=== PATIENT | male | born 1950 | race Caucasian/White ===

== ENCOUNTER → 2020-09-05 13:49 | Outpatient (BNVA) | payer MEDICARE, MEDICAID, SELFPAY | PROVIDERS: PCP Nurse Practitioner Family; Visit Provider Surgery | DX: K43.9 Ventral hernia without obstruction or gangrene (principal); K42.9 Umbilical hernia without obstruction or gangrene | CPT/HCPCS: 99202 ==

== ENCOUNTER 2020-09-25 06:00 | Day surgery (SDC) | payer MEDICARE, MEDICAID, SELFPAY ==
[2020-09-19 10:59] VITALS: BMI 39.3
--- NOTE | 2020-09-23 14:24 | HO.ANESPROP2 ---
HPI - Anesthesia Eval Consult details Narrative: 70yo M for Hernia Repair Umbilical and Ventral Hernia with mesh PMFSH Active Problems Active Problems: All Active Problems (Updated 09/19/20 @ 10:56 by Mary Jo Carrasco) Dyslipidemia (Acute) Umbilical hernia (Acute) Cyst (Acute) Ventral hernia (Acute) Hypertension (Acute) Past Medical History Medical History Elevated cholesterol Hypertension Lumbar herniated disc Family History Family History Father No problems noted. Mother No problems noted. Surgical History Surgical History H/O colonoscopy H/O left knee surgery H/O prostatectomy History of surgery Hx of cystoscopy Hx of hernia repair Social History Social History Alcohol intake: current Alcohol intake frequency: does not drink Patient Tobacco Use Status: Tobacco use Unknown Meds Allergies Allergy/AdvReac Type Severity Reaction Status Date / Time tamsulosin [Flomax] Allergy Intermediate Irritated Verified 09/25/20 06:24 throat/sinuses oxycodone [From PERCOCET] Allergy Mild ITCHY Verified 09/25/20 06:24 aspirin [ASA] AdvReac Intermediate GI UPSET, Verified 09/25/20 06:24 upset stomach pollen extracts [POLLEN] AdvReac Intermediate SINUS Verified 09/25/20 06:24 PROBLEMS Exam Exam Date and Time: September 23, 2020 1424 Height,Weight and Vital Signs: Height 5 ft 11 in Weight 128 kg Assessment and Plan Assessment Anesthesia Assessment: Chart Reviewed
[2020-09-25] VITALS (7 sets, daily range): BP systolic 132–150; BP diastolic 74–93; PULSE 58–75; RESP 16–18; TEMP 36.1–36.4; O2SAT 94–97
[2020-09-25] MEDS: Lactated Ringers 1,000 ML 100 ML IVCONT (06:35)
--- NOTE | 2020-09-25 07:06 | MHC.SHP ---
Pre-Procedural Eval Section A The patient is an INPATIENT: No Changes since office visit: Yes Patient answered all questions; No Cold of Flu in the past 2 weeks, No New Medical Problems and No Changes in Medication The History & Physical has been completed within 30 days and I have reviewed it.: Yes Section B Chief Complaint: ventral and umbilical hernia without obstruction Allergies: Allergies Allergy/AdvReac Type Severity Reaction Status Date / Time tamsulosin [Flomax] Allergy Intermediate Irritated Verified 09/25/20 06:24 throat/sinuses oxycodone [From PERCOCET] Allergy Mild ITCHY Verified 09/25/20 06:24 aspirin [ASA] AdvReac Intermediate GI UPSET, Verified 09/25/20 06:24 upset stomach pollen extracts [POLLEN] AdvReac Intermediate SINUS Verified 09/25/20 06:24 PROBLEMS Plan Diagnosis/Plan: Unchanged I have reviewed the history and physical and performed a pertinent physical examination on my patient. No changes have occurred unless specified.
--- NOTE | 2020-09-25 07:09 | HO.ANESPROP2 ---
[facility] Active Problems Active Problems: All Active Problems (Updated 09/19/20 @ 10:56 by Mary Jo Carrasco) Dyslipidemia (Acute) Umbilical hernia (Acute) Cyst (Acute) Ventral hernia (Acute) Hypertension (Acute) Past Medical History Medical History Elevated cholesterol Hypertension Lumbar herniated disc Family History Family History Father No problems noted. Mother No problems noted. Surgical History Surgical History H/O colonoscopy H/O left knee surgery H/O prostatectomy History of surgery Hx of cystoscopy Hx of hernia repair Social History Social History Alcohol intake: current Alcohol intake frequency: does not drink Patient Tobacco Use Status: Tobacco use Unknown Advance Directives Information Provided: No Meds Allergies Allergy/AdvReac Type Severity Reaction Status Date / Time tamsulosin [Flomax] Allergy Intermediate Irritated Verified 09/25/20 06:24 throat/sinuses oxycodone [From PERCOCET] Allergy Mild ITCHY Verified 09/25/20 06:24 aspirin [ASA] AdvReac Intermediate GI UPSET, Verified 09/25/20 06:24 upset stomach pollen extracts [POLLEN] AdvReac Intermediate SINUS Verified 09/25/20 06:24 PROBLEMS Active Medications: Current Medications Generic Name Dose Route Start Last Admin Trade Name Freq PRN Reason Stop Dose Admin Lactated Ringer's 1,000 mls @ 100 mls/hr 09/25/20 06:15 09/25/20 06:35 Lr IVCONT 100 mls/hr .Q10H FIOR Administration Exam Exam Date and Time: September 25, 2020 0709 Height,Weight and Vital Signs: Height 5 ft 11 in Weight 128 kg Last Vital Signs Temp 97.6 F 09/25/20 06:11 Pulse 69 09/25/20 06:11 Resp 16 09/25/20 06:11 BP 144/89 H 09/25/20 06:11 Pulse Ox 97 09/25/20 06:11 Airway Mallampati Class: II TM Dist: <=3cm Neck ROM: Full Denture: Upper Assessment and Plan Assessment Anesthesia Assessment: Anesthesia Plan Discussed and Chart Reviewed Final Anesthetic Review NPO: Yes ASA Class: III Final Preanesthetic Review: No Changes in Pt Med Stat, Meds/Allgs Chart Reviewed, Consent Obtained/Reviewed and Anes Risks/Benef Reviewed Patient Risk: Intermediate Procedure Risk: Intermediate Anesthetic Plan Anesthetic Plan: GA and Agree w/ Assess. and Plan Disposition: Standard PACU
--- NOTE | 2020-09-25 08:35 | W.PM.OPN ---
Operative Note Operative Note Date of Service: 09/25/20 Narrative: Preoperative diagnosis:Umbilical and ventral hernia Postoperative diagnosis:same Procedure:Repair of umbilical and ventral hernia with mesh Surgeon: Gary Cordova MD [employer]: no physician Anesthesia:General LMA Indications for procedure:70-year-old male patient presenting with a lump near the umbilicus and slightly above the umbilicus which increases in size with lifting and straining. On examination patient is found to have both an umbilical and ventral hernia. Both are reducible with light pressure. Operative findings: Ventral and umbilical hernia Specimen: none Estimated blood loss: 5 mL Complications: none Procedure details: patient was brought to the OR placed in a supine position. After administering general anesthesia the patient's abdomen was prepped with ChloraPrep and draped in a sterile fashion. A surgical time-out was called the consent confirmed. Patient received preoperative antibiotics and Venodyne boots were in place. Local anesthesia consisting of 0.25% Sensorcaine with epinephrine was infiltrated in the midline from just below the umbilicus to approximately 10 cm above the umbilicus. A midline incision was then created carried out through subcutaneous tissue. The umbilical and ventral hernia were identified. Electrocautery was then used to dissect the hernia sac down to the fascial edges. Fascial edges were then further defined using electrocautery. Hernia contents contained preperitoneal fat. This was reduced into the preperitoneal space. A preperitoneal space was then widened using blunt dissection and an open Ray-Donovan sponge. An 8 cm round Ventralex mesh was then obtained. This was placed in the preperitoneal space and secured to the fascia using 1. Tycron sutures. Fascia was then closed over the mesh using Tycron sutures in [id number] fashion. Wounds were then irrigated with saline solution and suctioned dry. Additional local was infiltrated into the muscle and subcutaneous tissue. Subcutaneous tissue and dermis were then reapproximated using interrupted 3-0 Polysorb sutures. Skin was closed using a running subcuticular 4 0 Polysorb suture. Steri-Strips 2 x 2 gauze and Tegaderm were then applied. The patient tolerated the procedure well. Sponge, instrument, needle counts reported as correct. The patient was transferred to PACU in stable condition.
[2020-09-25] MEDS: HYDROmorphone HCl 2 MG TABLET PO (09:20)
== END 2020-09-25 11:00 | disposition home or self-care (01) ==
PROVIDERS: PCP Nurse Practitioner Family; Visit Provider Surgery
PROC: (CPT 49560; principal; 2020-09-25 07:30)
DX: K42.9 Umbilical hernia without obstruction or gangrene (principal); K43.9 Ventral hernia without obstruction or gangrene; I10 Essential (primary) hypertension; Z79.899 Other long term (current) drug therapy; Z88.8 Allergy status to other drugs, medicaments and biological substances
CPT/HCPCS: 49560; 49585; 49568; C1781; J0690; J1100; J1885; J2405; J3010

== ENCOUNTER 2020-10-03 09:41 | Outpatient (REF) | payer MEDICARE, OTHER, SELFPAY ==
[2020-10-03 11:29] LABS: PSA,Total (Free>4and<10) 0.56 ng/mL (0.00-4.00)
== END 2020-10-03 09:42 | disposition home or self-care (01) ==
LOC: HO.LAB 09:41
PROVIDERS: Absent Provider Urology; PCP Nurse Practitioner Family; Visit Provider Surgery
DX: Z12.5 Encounter for screening for malignant neoplasm of prostate (principal); N40.1 Benign prostatic hyperplasia with lower urinary tract symptoms; K42.9 Umbilical hernia without obstruction or gangrene; K43.9 Ventral hernia without obstruction or gangrene
CPT/HCPCS: 36415; 84153; 99212

== ENCOUNTER 2020-10-04 09:36 | Outpatient (REF) | payer MEDICARE, MEDICAID, SELFPAY ==
[2020-10-04 12:08] LABS: TSH reflex Free T4 0.46 uIU/mL (0.32-4.0)
[2020-10-04 12:15] LABS: Alanine Aminotransferase 39 U/L (0-40); Albumin Level 4.4 g/dL (3.5-5.0); Alkaline Phosphatase 74 U/L (39-117); Anion Gap 12 (12-20); Aspartate Amino Transferase 28 U/L (5-37); Blood Urea Nitrogen 16 mg/dL (9-16); Calcium 9.5 mg/dL (8.4-10.2); Carbon Dioxide 28 mmol/L (22-29); Chloride 105 mmol/L (96-108); Cholesterol 172 mg/dL; Estimated Glomerular Filt Rate > 60; Glucose Fasting 95 mg/dL (60-99); HDL Cholesterol 31 mg/dL; LDL Cholesterol Calculated 111 mg/dl; Potassium 4.4 mmol/L (3.3-5.1); Sodium 141 mmol/L (135-145); Total Protein 7.1 g/dL (6.5-8.0); Triglycerides 152 mg/dL
== END 2020-10-04 09:37 | disposition home or self-care (01) ==
LOC: HO.HMGCLDS 09:36
PROVIDERS: PCP Nurse Practitioner Family; Visit Provider Nurse Practitioner Family
DX: E78.5 Hyperlipidemia, unspecified (principal); I10 Essential (primary) hypertension
CPT/HCPCS: 36415; 80053; 80061; 84443

== ENCOUNTER → 2020-11-05 12:58 | Outpatient (BNVA) | payer MEDICARE, MEDICAID, SELFPAY | PROVIDERS: PCP Nurse Practitioner Family; Referring Provider Nurse Practitioner Family; Visit Provider Surgery | DX: Z48.815 Encounter for surgical aftercare following surgery on the digestive system (principal); Z87.19 Personal history of other diseases of the digestive system | CPT/HCPCS: 99212 ==

== ENCOUNTER → 2020-12-31 13:26 | Outpatient (BNVA) | payer MEDICARE, MEDICAID, SELFPAY | PROVIDERS: PCP Nurse Practitioner Family; Visit Provider Urology | DX: N40.1 Benign prostatic hyperplasia with lower urinary tract symptoms (principal) | CPT/HCPCS: Q3014 ==

== ENCOUNTER → 2022-01-01 11:11 | Outpatient (BNVA) | payer MEDICARE, MEDICAID, SELFPAY | PROVIDERS: PCP Nurse Practitioner Family; Visit Provider Surgery Vascular Surgery | DX: I83.11 Varicose veins of right lower extremity with inflammation (principal) | CPT/HCPCS: 99202 ==

== ENCOUNTER 2022-01-02 14:44 | Outpatient (REF) | payer MEDICARE, MEDICAID, SELFPAY ==
[2022-01-02 17:11] LABS: Urine Cytology See Pathology rpt
== END 2022-01-02 14:45 | disposition home or self-care (01) ==
LOC: HO.LAB 14:44
PROVIDERS: PCP Nurse Practitioner Family; Visit Provider Urology
DX: R31.29 Other microscopic hematuria (principal); N40.1 Benign prostatic hyperplasia with lower urinary tract symptoms
CPT/HCPCS: 51798; 88112; 99212

== ENCOUNTER 2022-01-14 08:33 | Outpatient (REF) | payer MEDICARE, MEDICAID, SELFPAY ==
--- NOTE | ~2022-01-14 | US_ITS ---
EXAMINATION: US LOWER EXTREMITY VENOUS (REFLUX EXAM), BILATERAL CLINICAL INDICATION: Chronic venous insufficiency with recurrent varicose veins. History of right lower extremity radiofrequency ablation and left lower extremity Venaseal ablation COMPARISON: 10/04/2017 TECHNIQUE: Color flow triplex imaging and compression Doppler was performed to evaluate both the deep and the superficial systems bilaterally. To evaluate the superficial system, the examination was performed in the upright position. Color-flow Doppler ultrasound and compression ultrasound were utilized. In addition, maneuvers were utilized to demonstrate reflux. FINDINGS: 1. DEEP VENOUS ULTRASOUND OF THE RIGHT LOWER EXTREMITY: Common Femoral Vein: Compressible, normal respiratory variation and augmented flow. Femoral Vein: Compressible, normal color flow and augmentation. Popliteal Vein: Compressible, normal augmentation. Deep Reflux: There is mild reflux in the common femoral vein measuring 1344 ms There is no evidence of a Duran's cyst. 2. SUPERFICIAL ULTRASOUND WITH DOPPLER OF RIGHT LOWER EXTREMITY: GREAT SAPHENOUS VEIN: Saphenofemoral Junction: 1.1 cm; Reflux: 2208 ms Proximal Thigh: 0.5 cm; Reflux: 384 ms Mid Thigh: 0.2 cm; Reflux: 456 ms, partially occluded Above Knee: 0.1 cm; Reflux: 1036 ms, partially occluded At Knee: Not visualized Below Knee: 0.6 cm; Reflux: 3496 ms Mid Calf: 0.5 cm; Reflux: 1084 ms Ankle: 0.4 cm; Reflux: 800 ms DUPLICATED MEDIAL GREAT SAPHENOUS VEIN: Diameter: 1.0 cm Reflux: 1260 ms DUPLICATED LATERAL GREAT SAPHENOUS VEIN: Diameter: None Imaged Reflux: NA SMALL SAPHENOUS VEIN: Proximal: 0.2 cm; Reflux: 0 ms Distal: 0.2 cm; Reflux: 732 ms VEIN OF GIACOMINI: None Imaged. PERFORATORS: Location: Right calf Size: 0.3 to 0.4 cm Reflux: 332 ms VARICOSITIES: Location: Groin and throughout the thigh arising from of the medial duplicated great saphenous vein. Distal posterior calf arising from the small saphenous vein Size: Ranging from 0.3 to 1.0 cm Reflux: Ranging from 760 ms to 3364 ms 3. DEEP VENOUS ULTRASOUND OF THE LEFT LOWER EXTREMITY: Common Femoral Vein: Compressible, normal respiratory variation and augmented flow. Femoral Vein: Compressible, normal color flow and augmentation. Popliteal Vein: Compressible, normal augmentation. Deep Reflux: There is no evidence of reflux in the deep system in either the common femoral vein or the popliteal vein. There is no evidence of a Duran's cyst. 4. SUPERFICIAL ULTRASOUND WITH DOPPLER OF LEFT LOWER EXTREMITY: GREAT SAPHENOUS VEIN: Saphenofemoral Junction: 1.0 cm; Reflux: 0 ms Proximal Thigh: Not visualized Mid Thigh: Not visualized Above Knee: 0.2 cm; Reflux: 3412 ms, reconstituted from residual varicosities At Knee: Not visualized Below Knee: 0.5 cm; Reflux: 1456 ms Mid Calf: 0.5 cm; Reflux: 0 ms Ankle: 0.4 cm; Reflux: 560 ms DUPLICATED MEDIAL GREAT SAPHENOUS VEIN: Diameter: 0.4 cm Reflux: None DUPLICATED LATERAL GREAT SAPHENOUS VEIN: Diameter: 0.6 cm Reflux: None SMALL SAPHENOUS VEIN: Proximal: 0.3 cm; Reflux: 3480 ms ms Distal: 0.3 cm; Reflux: 0 ms VEIN OF GIACOMINI: Thigh extension is present PERFORATORS: Location: Left calf Size: 0.6 cm Reflux: None VARICOSITIES: Location: Proximal and mid thigh reconstituting the great saphenous vein in the distal thigh. Distal thigh and proximal calf reconstituting the great saphenous vein in the calf. Mid calf Size: Ranging from 0.4 to 0.7 cm Reflux: Ranging from 712 ms to 3344 ms US/US venous duplex LE BI IMPRESSION: Right: Prior ablation of the right great saphenous vein with some partial recanalization in the thigh. 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 The varicosities were subsequently reconstituting into the great saphenous vein at the level of the proximal calf. There is severe reflux in the reconstituted great saphenous vein, medial duplicated great saphenous vein and throughout the varicosities. There is also mild reflux in the right common femoral vein Left: Prior ablation of the left great saphenous vein within the thigh. There is a short segment area of reconstituted flow in the distal thigh due to residual or recurrent varicosities. Great saphenous vein in the calf is patent with moderate reflux. Multiple varicosities are seen in the thigh and extending into the calf with severe reflux as described above. There is severe reflux in the left small saphenous vein
== END 2022-01-14 08:34 | disposition home or self-care (01) ==
LOC: HO.US 08:33
PROVIDERS: Visit Provider Surgery Vascular Surgery
DX: I83.11 Varicose veins of right lower extremity with inflammation (principal)
CPT/HCPCS: 93970

== ENCOUNTER → 2022-01-21 09:48 | Outpatient (BNVA) | payer MEDICARE, MEDICAID, SELFPAY | PROVIDERS: PCP Nurse Practitioner Family; Visit Provider Surgery Vascular Surgery | DX: I83.11 Varicose veins of right lower extremity with inflammation (principal); I83.12 Varicose veins of left lower extremity with inflammation | CPT/HCPCS: 99212 ==

== ENCOUNTER → 2022-02-06 09:57 | Outpatient (BNVA) | payer MEDICARE, MEDICAID, SELFPAY | PROVIDERS: PCP Nurse Practitioner Family; Visit Provider Surgery Vascular Surgery | DX: I83.11 Varicose veins of right lower extremity with inflammation (principal) | CPT/HCPCS: 36482 ==

== ENCOUNTER 2022-02-09 13:29 | Outpatient (REF) | payer MEDICARE, MEDICAID, SELFPAY ==
--- NOTE | ~2022-02-09 | US_ITS ---
EXAMINATION: TRIPLEX SCANNING OF RIGHT LOWER EXTREMITY; SUPERFICIAL ULTRASOUND WITH DOPPLER OF RIGHT LOWER EXTREMITY CLINICAL INFORMATION: Status post Venaseal of the right great saphenous vein COMPARISON: Ultrasound from 01/14/2022. TECHNIQUE: Color flow triplex imaging and compression Doppler were performed as well as superficial ultrasound with Doppler. FINDINGS: RIGHT LOWER EXTREMITY DEEP VENOUS SYSTEM: Respiratory variation, normal compression and augmented flow are noted throughout the lower extremity. The visualized common femoral vein, femoral vein, profunda femoral vein, popliteal vein and the calf veins show no evidence of deep venous thrombosis. There is no evidence of Duran's cyst. SUPERFICIAL VENOUS SYSTEM: The great saphenous vein is only partially occluded. Thrombus/glue with partial compressibility is seen in the proximal great saphenous vein beginning at 2.9 cm from the saphenofemoral junction. Patent segments of the great saphenous vein are seen within the mid and distal thigh. The great saphenous vein in the proximal and mid calf is occluded. There is partial occlusion of the great saphenous vein in the distal calf. There is no extension of thrombus into the deep system. US/US venous duplex LE RT IMPRESSION: 1. No evidence of DVT. 2. Partial occlusion of the right great saphenous vein as described above.
== END 2022-02-09 13:30 | disposition home or self-care (01) ==
LOC: HO.US 13:29
PROVIDERS: Visit Provider Surgery Vascular Surgery
DX: M79.604 Pain in right leg (principal)
CPT/HCPCS: 93971

== ENCOUNTER → 2022-02-19 15:09 | Outpatient (BNVA) | payer MEDICARE, MEDICAID, SELFPAY | PROVIDERS: PCP Nurse Practitioner Family; Visit Provider Surgery Vascular Surgery | DX: I83.11 Varicose veins of right lower extremity with inflammation (principal) | CPT/HCPCS: 99212 ==

== ENCOUNTER → 2022-03-13 09:20 | Outpatient (BNVA) | payer MEDICARE, MEDICAID, SELFPAY | PROVIDERS: PCP Nurse Practitioner Family; Visit Provider Surgery Vascular Surgery | DX: I83.11 Varicose veins of right lower extremity with inflammation (principal) | CPT/HCPCS: 36475 ==

== ENCOUNTER 2022-03-16 15:12 | Outpatient (REF) | payer MEDICARE, MEDICAID, SELFPAY ==
--- NOTE | ~2022-03-16 | US_ITS ---
EXAMINATION: TRIPLEX SCANNING OF RIGHT LOWER EXTREMITY; SUPERFICIAL ULTRASOUND WITH DOPPLER OF RIGHT LOWER EXTREMITY CLINICAL INFORMATION: Status post RF ablation of the right small saphenous vein. Originally performed on 03/13/2022. COMPARISON: Ultrasound from 02/09/2022. TECHNIQUE: Color flow triplex imaging and compression Doppler were performed as well as superficial ultrasound with Doppler. FINDINGS: TRIPLEX SCANNING OF RIGHT LOWER EXTREMITY: Respiratory variation, normal compression and augmented flow are noted throughout the lower extremity. The visualized common femoral vein, femoral vein, profunda femoral vein, popliteal vein and the calf veins show no evidence of deep venous thrombosis. There is no evidence of Duran's cyst. SUPERFICIAL ULTRASOUND WITH DOPPLER OF RIGHT LOWER EXTREMITY: The right small saphenous vein is occluded from the access site to 2.6 cm before the saphenopopliteal junction. There is no extension of thrombus into the deep system. US/US venous duplex LE RT IMPRESSION: 1. Normal triplex scan of the right without evidence of deep venous thrombosis. 2. Excellent appearance status post ablation of the right small saphenous vein.
== END 2022-03-16 15:13 | disposition home or self-care (01) ==
LOC: HO.US 15:12
PROVIDERS: Visit Provider Surgery Vascular Surgery
DX: M79.604 Pain in right leg (principal)
CPT/HCPCS: 93971

== ENCOUNTER → 2022-03-31 14:39 | Outpatient (BNVA) | payer MEDICARE, MEDICAID, SELFPAY | PROVIDERS: PCP Nurse Practitioner Family; Visit Provider Surgery Vascular Surgery | DX: I83.11 Varicose veins of right lower extremity with inflammation (principal); I83.12 Varicose veins of left lower extremity with inflammation | CPT/HCPCS: 99212 ==

== ENCOUNTER 2022-04-13 06:01 | Day surgery (SDC) | payer MEDICARE, MEDICAID, SELFPAY ==
[2022-04-09 09:27] VITALS: BMI 37.6
[2022-04-13] VITALS (10 sets, daily range): BP systolic 131–160; BP diastolic 83–102; PULSE 70–86; RESP 12–18; TEMP 36.2–36.6; O2SAT 94–98
--- NOTE | 2022-04-13 07:21 | HO.ANESPROP2 ---
HPI - Anesthesia Eval Consult details Narrative: 71 yo male patient for Right lower extremity microphlebectomy PMFSH Active Problems Active Problems: All Active Problems (Updated 04/13/22 @ 07:20 by Jil Jang MD) Dyslipidemia (Acute) Umbilical hernia (Acute) Cyst (Acute) Ventral hernia (Acute) Lower urinary tract symptoms due to benign prostatic hyperplasia (Acute) Varicose veins of right lower extremity with inflammation (Acute) Varicose veins of left lower extremity with inflammation (Acute) Hypertension (Acute) Increased BMI Past Medical History Medical History (Updated 04/13/22 @ 08:30 by Jil Jang MD) Degenerative disc disease, lumbar Elevated cholesterol Hypertension Lumbar herniated disc Sleep walking Family History Family History Father No problems noted. Mother No problems noted. Family history of problems with anesthesia: No Surgical History Surgical History H/O colonoscopy H/O left knee surgery H/O prostatectomy History of surgery Hx of cystoscopy Hx of hernia repair Hx of removal of cyst Hx of umbilical hernia repair History of Problems with Anesthesia: No Social History Social History Alcohol intake: current Alcohol intake frequency: former alcohol drinker Patient Tobacco Use Status: Never used Tobacco Use of substances other than those prescribed or required for medical reasons: No Are you DNR?: No Advance Directives: No Advance Directives Information Provided: Yes Meds Allergies Allergy/AdvReac Type Severity Reaction Status Date / Time tamsulosin [Flomax] Allergy Intermediate Irritated Verified 04/13/22 06:20 throat/sinuses oxycodone [From PERCOCET] Allergy Mild ITCHY Verified 04/13/22 06:20 aspirin [ASA] AdvReac Intermediate GI UPSET, Verified 04/13/22 06:20 upset stomach pollen extracts [POLLEN] AdvReac Intermediate SINUS Verified 04/13/22 06:20 PROBLEMS fluticasone [From Flonase] AdvReac Unknown Verified 04/13/22 06:20 Home Medications Medication Instructions Recorded Confirmed Last Taken Type cetirizine 10 mg tablet (Allergy 10 mg PO DAILY PRN Allergy Symptoms 01/20/21 04/13/22 Unknown History Relief (cetirizine)) diphenhydramine 25 1 tab PO BEDTIME PRN Insomnia 02/19/22 04/13/22 Unknown History mg-acetaminophen 500 mg tablet (Tylenol PM Extra Strength) Exam Exam Date and Time: April 13, 2022 0721 Height,Weight and Vital Signs: Height 5 ft 11 in Weight 122.47 kg Last Vital Signs Temp 97.7 F 04/13/22 06:28 Pulse 86 04/13/22 06:28 Resp 16 04/13/22 06:28 BP 160/102 H 04/13/22 06:28 Pulse Ox 98 04/13/22 06:28 O2 Del Method 04/13/22 06:28 Airway Mallampati Class: II TM Dist: >3cm Neck ROM: Full Loose/Missing/Broken Teeth: No (Denies loose, broken, missing teeth) Heart: RRR Lungs: CTAB Assessment and Plan Assessment Anesthesia Assessment: Anesthesia Plan Discussed and Chart Reviewed Final Anesthetic Review Family History of Problems with Anesthesia: No History of Problems with Anesthesia: No NPO: Yes ASA Class: II Final Preanesthetic Review: No Changes in Pt Med Stat, Meds/Allgs Chart Reviewed, Consent Obtained/Reviewed and Anes Risks/Benef Reviewed Patient Risk: Low Procedure Risk: Low Assessment/Block/Sedation in SS: Assess/Block/Sedation-SS Anesthetic Plan Anesthetic Plan: GA Disposition: Standard PACU
--- NOTE | 2022-04-13 07:42 | MHC.SHP ---
Pre-Procedural Eval Section A Date of Service: 04/13/22 The patient is an INPATIENT: No Changes since office visit: Yes Patient answered all questions The History & Physical has been completed within 30 days and I have reviewed it.: Yes Section B Chief Complaint: Varicose veins of left lower extremity Allergies: Allergies Allergy/AdvReac Type Severity Reaction Status Date / Time tamsulosin [Flomax] Allergy Intermediate Irritated Verified 04/13/22 06:20 throat/sinuses oxycodone [From PERCOCET] Allergy Mild ITCHY Verified 04/13/22 06:20 aspirin [ASA] AdvReac Intermediate GI UPSET, Verified 04/13/22 06:20 upset stomach pollen extracts [POLLEN] AdvReac Intermediate SINUS Verified 04/13/22 06:20 PROBLEMS fluticasone [From Flonase] AdvReac Unknown Verified 04/13/22 06:20 Plan I have reviewed the history and physical and performed a pertinent physical examination on my patient. No changes have occurred unless specified. Time Spent With Patient Time: Total time managing care of this patient today ____ minutes.
--- NOTE | 2022-04-13 09:03 | W.PM.OPN ---
Operative Note Operative Note Date of Service: 04/13/22 Narrative: Operative note by [facility] Preoperative diagnosis: Right leg varicose veins with inflammation Postoperative diagnosis: Same Procedure:1. Right leg microphlebectomy 2. Ligation of venous cluster Surgeon:Ty Fernández M.D. Molecular Genetic Pathologist: Taryn Anesthesia: General Specimens: 1 Drains: None Estimated blood loss: 100 mL Indications: Very pleasant 71-year-old gentleman with prior right lower extremity endovenous ablation is presents for microphlebectomy. He had large varicosities which were painful and uncomfortable for him. More so towards the medial thigh. He now presents for operative intervention. The patient has signed the informed consent after reviewing risks, complications, benefits, and alternatives previously discussed with the patient. The patient was given the opportunity to ask any additional questions or voice any concerns. All questions were answered to the patient's satisfaction. Procedure in detail: Varicose veins were marked in the standing position on the right leg and the patient was then placed in the supine position. The right lower extremity was prepared and draped to allow knee flexion in the sterile field. The patient had large superficial varicose veins with significant symptoms of pain. It was therefore determined to perform microphlebectomies of the clusters of varicose veins. The patient had bulging varicose veins which were previously marked in the standing position. A small stab incision was made longitudinally directly overlying the varicose vein in the calf and the varicose vein was grasped with a hemostat aided by a vein hook. It was then dissected as far proximally and distally as possible and avulsed. A total of 23 stab incisions were made and the procedure of stab phlebectomies was repeated 23 times. On the right medial thigh there was a venous cluster. We had to identify the base of this venous cluster and we E ligated the base with a 3-0 Polysorb suture residual varicosities were removed. Hemostasis was checked and stab incision sites were closed with steri-strips and sterile dressing was given with gauze and krilex wrap followed by an melecio bandage. There were no complications and blood loss was minimal. Post-Op instructions were given and a follow-up appointment was recommended. This note is constructed using voice recognition software. While every effort has been made to ensure accuracy, driver education road instructor errors may have been included. Thank you for allowing me to participate in the care of your patient. Yours sincerely, Ty Fernández MD, FACS, R.P.V.I.
== END 2022-04-13 11:21 ==
LOC: HO.SSS 06:01
PROVIDERS: PCP Nurse Practitioner Family; Visit Provider Surgery Vascular Surgery
PROC: (CPT 37766; principal; 2022-04-13 07:30)
DX: I83.11 Varicose veins of right lower extremity with inflammation (principal); E78.00 Pure hypercholesterolemia, unspecified; I10 Essential (primary) hypertension; Z88.8 Allergy status to other drugs, medicaments and biological substances
CPT/HCPCS: 37766; 37785; 88304; J0690; J2250; J2405; J2795; J3010

== ENCOUNTER → 2022-04-28 14:31 | Outpatient (BNVA) | payer MEDICARE, MEDICAID, SELFPAY | PROVIDERS: PCP Nurse Practitioner Family; Visit Provider Surgery Vascular Surgery | DX: I83.12 Varicose veins of left lower extremity with inflammation (principal); I83.11 Varicose veins of right lower extremity with inflammation; Z98.890 Other specified postprocedural states | CPT/HCPCS: 99212 ==

== ENCOUNTER → 2022-05-01 09:25 | Outpatient (BNVA) | payer MEDICARE, MEDICAID, SELFPAY | PROVIDERS: PCP Nurse Practitioner Family; Visit Provider Surgery Vascular Surgery | DX: I83.12 Varicose veins of left lower extremity with inflammation (principal) | CPT/HCPCS: 37765 ==

== ENCOUNTER → 2022-05-14 14:38 | Outpatient (BNVA) | payer MEDICARE, MEDICAID, SELFPAY | PROVIDERS: PCP Nurse Practitioner Family; Visit Provider Surgery Vascular Surgery | DX: I83.11 Varicose veins of right lower extremity with inflammation (principal); I83.12 Varicose veins of left lower extremity with inflammation | CPT/HCPCS: 99212 ==

== ENCOUNTER 2023-01-05 14:31 | Outpatient (AMB) | payer MEDICARE, MEDICAID, SELFPAY ==
--- NOTE | 2023-01-05 14:34 | MHC.OFFVIS ---
Intake Intake Visit Reasons: 1Y PVR(BPH) Intake Note: Patient is Present for Follow Up PVR Urology Medication: None Antibiotic Allergies: None Blood Thinners: None Pharmacy: [facility] PVR: 10 Allergies tamsulosin [Flomax] Allergy (Intermediate, Verified 01/05/23 14:35) Irritated throat/sinuses oxycodone [From PERCOCET] Allergy (Mild, Verified 01/05/23 14:35) ITCHY aspirin [ASA] Adverse Reaction (Intermediate, Verified 01/05/23 14:35) GI UPSET, upset stomach pollen extracts [POLLEN] Adverse Reaction (Intermediate, Verified 01/05/23 14:35) SINUS PROBLEMS fluticasone [From Flonase] Adverse Reaction (Verified 01/05/23 14:35) Unknown Medication List - Last Reconciled 01/05/23 by Carlos Gil MD atorvastatin 20 mg PO DAILY cetirizine (Allergy Relief (cetirizine)) 10 mg PO DAILY PRN diphenhydramine-acetaminophen 25-500 mg (Tylenol PM Extra Strength) 1 tab PO BEDTIME PRN lisinopril 5 mg PO DAILY HPI HPI Comments History of Present Illness Details Rory is a pleasant male. He is a patient of Dr. Pires. He is seen for the following urologic conditions - lower urinary tract symptoms - microscopic hematuria Microscopic hematuria on UA Persistent Upper tract +cystoscopy Lower urinary tract symptoms Underwent prostate procedure in office February 2017 Continued benefit PSA - 10/23 0.49, 10/23 0.56 PFSH Medical History Sleep walking Degenerative disc disease, lumbar Elevated cholesterol Lumbar herniated disc Hypertension Surgical History Hx of removal of cyst Hx of umbilical hernia repair Hx of cystoscopy History of surgery H/O prostatectomy H/O left knee surgery Hx of hernia repair H/O colonoscopy Family History Father No problems noted. Mother No problems noted. Social History Alcohol intake: current Alcohol intake frequency: former alcohol drinker Patient Tobacco Use Status: Never used Tobacco Review of Systems Const Denies chills and Denies fever(s) Card Reports no additional complaints and Denies syncope Resp Denies cough GI Denies abdominal pain and Denies heartburn Reports as per HPI and Denies change in libido Neuro Denies syncope Psych Denies change in libido Endo Denies change in libido Physical Exam Const General: cooperative, healthy appearing, comfortable and no acute distress Orientation/consciousness: patient oriented x3 HEENT Face and sinus: Yes normal facial exam Mouth: moist mucous membranes Neck Neck: Yes normal visual inspection, Yes full ROM and Yes trachea midline Chest Chest palpation & inspection: normal inspection of the chest Resp Effort & Inspection: normal respiratory effort, able to speak in complete sentences and no respiratory distress GI Inspection: Yes normal to inspection Back/Spine/Pelvis Cervical Spine: normal cervical lordosis Thoracic/Lumbar Spine: thoracic and lumbar spine normal to inspection Skin General skin exam: no rashes or lesions noted Neuro General: patient oriented x3, gait normal, tone normal and moves all extremities Extrem General: Yes normal to inspection and Yes capillary refill normal Office Procedures Post Void Residual Post Residual Void Post Void Residual (PVR): 10 [id number] Void Residual by ultrasound Results AMB Urinalysis, Automated UA Leukoctes 0 Dpiesh/uL Last Edit by Karlee Crawford [facility] on 01/05/23 14:55 UA Nitrite Negative Last Edit by Karlee Crawford [facility] on 01/05/23 14:55 UA Urobilinogen 0.2 mg/dL Last Edit by Karlee Crawford [facility] on 01/05/23 14:55 UA Protein 100 mg/dL Last Edit by Karlee Crawford [facility] on 01/05/23 14:55 UA pH 5.0 Last Edit by Karlee Crawford [facility] on 01/05/23 14:55 UA Blood 80 Moise/uL Last Edit by Karlee Crawford [facility] on 01/05/23 14:55 UA Specific [place] 1.025 Last Edit by Karlee Crawford [facility] on 01/05/23 14:55 UA Ketone Negative Last Edit by Karlee Crawford [facility] on 01/05/23 14:55 UA Bilirubin 0 mg/dL Last Edit by Karlee Crawford [facility] on 01/05/23 14:55 UA Glucose 0 mg/dL Last Edit by GLADIS Barrera on 01/05/23 14:55 Assessment & Plan Assessment & Plan (1) Microscopic hematuria: Code(s): R31.29 - Other microscopic hematuria (2) Lower urinary tract symptoms due to benign prostatic hyperplasia: Code(s): N40.1 - Benign prostatic hyperplasia with lower urinary tract symptoms Plan Complete microscopic hematuria evaluation Orders: Orders Urine Cytology Today R31.29 - Other microscopic hematuria US renal BI Today N20.0 - Calculus of kidney, R31.29 - Other microscopic hematuria AMB Post Void Residual by ultrasound Today N40.1 - Benign prostatic hyperplasia with lower urinary tract symptoms AMB Urinalysis Automated Today Z13.9 - Encounter for screening, unspecified Patient Instructions: Imaging studies, laboratory and physical exam results were discussed and reviewed in detail. No major barriers to patient understanding were identified. An opportunity to ask questions regarding the treatment plan was provided. All questions were answered. The patient expressed understanding and agreement with the above treatment plan. The patient is aware they should contact our office by phone for worsening of their current condition or the appearance of new urologic symptoms. Compliance is encouraged with any medications and followup testing that is ordered. It is a privilege to participate in the urologic care of your patient. If you have any questions or concerns regarding treatment for the above conditions, or other urologic issues, please do not hesitate to contact me. The office telephone contact is [phone]. This note is constructed using voice recognition software. While every effort has been made to ensure accuracy net trainer errors may have been included. Yours sincerely, Dr Carlos Gil MD, [facility] - Urology Providers of Expert, Compassionate Care for the Genitourinary System Coding Level of Care Code Est Pt Level 4 (39054) Diagnoses Microscopic hematuria R31.29 Lower urinary tract symptoms due to benign prostatic hyperplasia N40.1 CPT Codes Post Residual Void - PVR CPT Code: 90528-Vpjd Void Residual by ultrasound ([id number])
== END 2023-01-05 15:12 | disposition home or self-care (01) ==
PROVIDERS: PCP Nurse Practitioner Family; Visit Provider Urology
DX: R31.29 Other microscopic hematuria (principal); N40.1 Benign prostatic hyperplasia with lower urinary tract symptoms; Z13.9 Encounter for screening, unspecified
CPT/HCPCS: 99214

== ENCOUNTER 2023-01-05 14:31 | Outpatient (REF) | payer MEDICARE, SELFPAY ==
[2023-01-05 16:45] LABS: Urine Cytology See Pathology rpt
== END 2023-01-05 14:32 | disposition home or self-care (01) ==
LOC: HO.LAB 14:31
PROVIDERS: Visit Provider Urology
DX: R31.29 Other microscopic hematuria (principal); N40.1 Benign prostatic hyperplasia with lower urinary tract symptoms
CPT/HCPCS: 51798; 81003; 88112; 99212

== ENCOUNTER 2023-01-26 12:51 | Outpatient (REF) | payer MEDICARE, MEDICAID, SELFPAY ==
--- NOTE | ~2023-01-26 | US_ITS ---
EXAMINATION: US RETROPERITONEAL LIMITED (RENAL ONLY) CLINICAL INFORMATION: Calculus of kidney. COMPARISON: MRI abdomen 09/19/2013. Renal ultrasound 09/13/2013. CT abdomen 08/30/2013. TECHNIQUE: Real-time imaging of the kidneys. FINDINGS: RIGHT KIDNEY: 10.8 x 5.8 x 5.6 cm (SAG x AP x TRV). The kidney is normal in size, contour, and echogenicity. Renal cortical thickness is normal. No calculi or focal parenchymal lesions. No hydronephrosis. LEFT KIDNEY: 12.0 x 6.9 x 5.4 cm (SAG x AP x TRV). The kidney is normal in size, contour, and echogenicity. Renal cortical thickness is normal. No renal calculi or hydronephrosis. 1.1 cm simple cyst in the upper kidney. 1.0 cm simple cyst in the upper kidney. No follow-up imaging is recommended. US/US renal BI IMPRESSION: No visible nephrolithiasis. No hydronephrosis.
== END 2023-01-26 12:52 | disposition home or self-care (01) ==
LOC: HO.HMGCX 12:51
PROVIDERS: PCP Nurse Practitioner Family; Visit Provider Urology
DX: N20.0 Calculus of kidney (principal); R31.29 Other microscopic hematuria
CPT/HCPCS: 76775

== ENCOUNTER 2023-02-12 12:54 | Outpatient (REF) | payer MEDICARE, MEDICAID, SELFPAY ==
[2023-02-12 16:33] LABS: Urine Cytology See Pathology rpt
== END 2023-02-12 12:55 | disposition home or self-care (01) ==
LOC: HO.LAB 12:54
PROVIDERS: PCP Nurse Practitioner Family; Visit Provider Urology
DX: R31.29 Other microscopic hematuria (principal); N40.1 Benign prostatic hyperplasia with lower urinary tract symptoms
CPT/HCPCS: 52000; 81003; 88112; 99212

== ENCOUNTER 2023-02-12 12:54 | Outpatient (AMB) | payer MEDICARE, MEDICAID, SELFPAY ==
--- NOTE | 2023-02-12 13:06 | MHC.OFFVIS ---
Intake Intake Visit Reasons: cysto/US Intake Note: Patient is Present for Cystoscopy/US Urology Med: None Antibiotic Allergy: None Blood Thinner: None URO- G Disposable Cystoscope lot: [id number] exp: 09/16/2024 Allergies tamsulosin [Flomax] Allergy (Intermediate, Verified 03/30/23 13:58) Irritated throat/sinuses oxycodone [From PERCOCET] Allergy (Mild, Verified 03/30/23 13:58) ITCHY aspirin [ASA] Adverse Reaction (Intermediate, Verified 03/30/23 13:58) GI UPSET, upset stomach pollen extracts [POLLEN] Adverse Reaction (Intermediate, Verified 03/30/23 13:58) SINUS PROBLEMS fluticasone [From Flonase] Adverse Reaction (Verified 03/30/23 13:58) Unknown HPI HPI Comments History of Present Illness Details Rory is a pleasant male. He is a patient of Dr. Pires. He is seen for the following urologic conditions - lower urinary tract symptoms - microscopic hematuria Here for cystoscopy and discussion of upper tract imaging Cystoscopy normal Upper tract renal ultrasound with cyst on left kidney, no nephrolithiasis Lower urinary tract symptoms Underwent prostate procedure in office February 2017 Continued benefit PSA - 10/23 0.49, 10/23 0.56 PFSH Medical History Sleep walking Degenerative disc disease, lumbar Elevated cholesterol Lumbar herniated disc Hypertension Surgical History Hx of removal of cyst Hx of umbilical hernia repair Hx of cystoscopy History of surgery H/O prostatectomy H/O left knee surgery Hx of hernia repair H/O colonoscopy Family History Father No problems noted. Mother No problems noted. Brother Substance use disorder Sister Substance use disorder Paternal Uncle Mental health disorder Paternal Aunt Mental health disorder Social History Alcohol intake: current Alcohol intake frequency: former alcohol drinker Comment: medicated in pacu Patient Tobacco Use Status: Never used Tobacco Review of Systems Const Denies chills and Denies fever(s) Card Reports no additional complaints and Denies syncope Resp Denies cough GI Denies abdominal pain and Denies heartburn Reports as per HPI and Denies change in libido Neuro Denies syncope Psych Denies change in libido Endo Denies change in libido Physical Exam Const General: cooperative, healthy appearing, comfortable and no acute distress Orientation/consciousness: patient oriented x3 HEENT Face and sinus: Yes normal facial exam Mouth: moist mucous membranes Neck Neck: Yes normal visual inspection, Yes full ROM and Yes trachea midline Chest Chest palpation & inspection: normal inspection of the chest Resp Effort & Inspection: normal respiratory effort, able to speak in complete sentences and no respiratory distress GI Inspection: Yes normal to inspection Back/Spine/Pelvis Cervical Spine: normal cervical lordosis Thoracic/Lumbar Spine: thoracic and lumbar spine normal to inspection Skin General skin exam: no rashes or lesions noted Neuro General: patient oriented x3, gait normal, tone normal and moves all extremities Extrem General: Yes normal to inspection and Yes capillary refill normal Office Procedures Cystoscopy Consent Discussed risk and benefit or proposed procedure with the patient. Information consent for procedure given to the patient. Discussed technical aspects, risks, benefits and alternatives in full. Addressed all of the patient's questions and concerns regarding the procedure. The patient demonstrated knowledge and understanding. They wish to proceed with this procedure. Preparation The patient was prepped in the usual manner. A traveling passenger agent was present and in the room. Genitalia was prepped with betadine solution in a sterile manner. Lidocaine Jelly 2% was placed into the urethra and 16Fr flexible Olympus cystoscope was inserted into the meatus after adequate lubrication. Procedure Meatus circumcised Urethra anterior posterior urethra normal Prostatic Urethra unremarkable prostate Bladder examination with retroflexion of cystoscope Bladder Orifices normal shape and position Bladder Capacity medium Trabeculations grade 1 Cellule Formation - Diverticulum Formation - Mucosal Erythema - Bladder Tumor - [id number] DISPOSABLE SCOPE URO-G FLEXIBLE SCOPE Procedure code (CPT) selection complete Office Meds lidocaine HCl 2 % mucosal jelly in applicator Performing Provider: Carlos Gil MD [facility] [place] [facility] Administered by: Lucretia Amaya RN on 02/12/23 13:26 Dose Route Admin Location Dispensed Lot Number Expiration Date [facility] [place] Maintenance Controller 10 mL intra-urethral 10 mL nitrofurantoin monohydrate/macrocrystals 100 mg capsule Performing Provider: Carlos Gil MD Performing Location: [facility] [place] [facility] Administered by: Lucretia Amaya RN on 02/12/23 13:26 Dose Route Admin Location Dispensed Lot Number Expiration Date NDC Maintenance Controller 100 mg PO 1 cap naproxen 500 mg tablet Performing Provider: Carlos Gil MD Performing Location: [facility] [place] [facility] Administered by: Lucretia Amaya RN on 02/12/23 13:26 Dose Route Admin Location Dispensed Lot Number Expiration Date NDC Maintenance Controller 500 mg PO 1 tab Results AMB Urinalysis, Automated UA Leukoctes 0 Dipesh/uL Last Edit by Karlee Crawford [facility] on 02/12/23 13:33 UA Nitrite Negative Last Edit by Karlee Crawford [facility] on 02/12/23 13:33 UA Urobilinogen 0.2 mg/dL Last Edit by Karlee Crawford A on 02/12/23 13:33 UA Protein 30 mg/dL Last Edit by Karlee Crawford [facility] on 02/12/23 13:33 UA pH 5.0 Last Edit by Karlee Crawford A on 02/12/23 13:33 UA Blood 200 Moise/uL Last Edit by Karlee Crawford [facility] on 02/12/23 13:33 UA Specific [place] 1.020 Last Edit by Karlee Crawford A on 02/12/23 13:33 UA Ketone Negative Last Edit by Karlee Crawford [facility] on 02/12/23 13:33 UA Bilirubin 0 mg/dL Last Edit by Karlee Crawford [facility] on 02/12/23 13:33 UA Glucose 0 mg/dL Last Edit by Karlee Crawford [facility] on 02/12/23 13:33 Results Reviewed Results Reviewed: Laboratory Last Values Urine pH (Auto) 5.0 02/12/23 13:12 Specific [place] (Auto) 1.020 02/12/23 13:12 Urine Protein (Auto) 30 mg/dL 02/12/23 13:12 Glucose (UA)(Auto) 0 mg/dL 02/12/23 13:12 Urine Ketones (Auto) Negative 02/12/23 13:12 Urine Blood (Auto) 200 Moise/uL 02/12/23 13:12 Urine Nitrite (Auto) Negative 02/12/23 13:12 Urine Bilirubin (Auto) 0 mg/dL 02/12/23 13:12 Urine Urobilinogen (Auto) 0.2 mg/dL 02/12/23 13:12 Leukocyte Esterase (Auto) 0 Dipesh/uL 02/12/23 13:12 Assessment & Plan Assessment & Plan (1) Microscopic hematuria: Code(s): R31.29 - Other microscopic hematuria Plan Six month follow-up UA Orders: Orders AMB Cystoscopy 02/12/23 N40.1 - Benign prostatic hyperplasia with lower urinary tract symptoms Urine Cytology 02/12/23 R31.29 - Other microscopic hematuria AMB Urinalysis Automated 02/12/23 Z13.9 - Encounter for screening, unspecified Patient Instructions: Imaging studies, laboratory and physical exam results were discussed and reviewed in detail. No major barriers to patient understanding were identified. An opportunity to ask questions regarding the treatment plan was provided. All questions were answered. The patient expressed understanding and agreement with the above treatment plan. The patient is aware they should contact our office by phone for worsening of their current condition or the appearance of new urologic symptoms. Compliance is encouraged with any medications and followup testing that is ordered. It is a privilege to participate in the urologic care of your patient. If you have any questions or concerns regarding treatment for the above conditions, or other urologic issues, please do not hesitate to contact me. The office telephone contact is [phone]. This note is constructed using voice recognition software. While every effort has been made to ensure accuracy old testament professor errors may have been included. Yours sincerely, Dr Carlos Gil MD, [facility] - Urology Providers of Expert, Compassionate Care for the Genitourinary System Coding Level of Care Code Est Pt Level 3 (02424) Diagnoses Microscopic hematuria R31.29 CPT Codes Cystoscopy - CPT: 16409-[id number] ([id number])
== END 2023-02-12 13:41 | disposition home or self-care (01) ==
PROVIDERS: PCP Nurse Practitioner Family; Visit Provider Urology
DX: R31.29 Other microscopic hematuria (principal)
CPT/HCPCS: 52000; 99213

== ENCOUNTER 2023-03-08 11:15 | Outpatient (AMB) | payer MEDICARE, MEDICAID, SELFPAY ==
[2023-03-08 11:29] VITALS: BP 136/90; PULSE 84; O2SAT 94
--- NOTE | 2023-03-08 11:29 | AM.OFFVISMDC ---
Intake Vital Signs 03/08/23 11:29 Weight 271 lb BP 136/90 H Blood Pressure Location Rt brachial Position Sitting Pulse 84 Pulse Source Pulse Oximeter Pulse Oximetry (%) 94 Oxygen Delivery Method Room Air Intake Visit Reasons: VIV G0439 01/03/22 Discuss/Bill ACP Intake Note: Pt is here today for his SWV Allergies tamsulosin [Flomax] Allergy (Intermediate, Verified 03/08/23 11:30) Irritated throat/sinuses oxycodone [From PERCOCET] Allergy (Mild, Verified 03/08/23 11:30) ITCHY aspirin [ASA] Adverse Reaction (Intermediate, Verified 03/08/23 11:30) GI UPSET, upset stomach pollen extracts [POLLEN] Adverse Reaction (Intermediate, Verified 03/08/23 11:30) SINUS PROBLEMS fluticasone [From Flonase] Adverse Reaction (Verified 03/08/23 11:30) Unknown Medication List - Last Reconciled 03/08/23 by TEOFILO Handley atorvastatin 20 mg PO DAILY cetirizine (Allergy Relief (cetirizine)) 10 mg PO DAILY PRN diphenhydramine-acetaminophen 25-500 mg (Tylenol PM Extra Strength) 1 tab PO BEDTIME PRN lisinopril-hydrochlorothiazide 10-12.5 mg 1 tab PO DAILY HPI SWV G0439 01/03/22 Discuss/Bill ACP HPI Details Pt is here for an SWV. Denies fever, chills, and dizziness. [place] [facility] care [facility]. PPP will be scanned in chart and copy will be given to pt. HPI Comments History of Present Illness Details HTN: diastolic elevated. Will stop lisinopril 5mg and start lisinopril-hydrochlorothiazide 10-12.5mg. Denies chest pain, shortness of breath, headache, dizziness, and blurred vision. Pt reports a cystic lesion to his left lateral epicondyle region that is tender, pushing on tissues, it swells sometimes . Will refer to ortho. Encouraged pt to get his pneumonia vaccine. [facility] Medical History Sleep walking Degenerative disc disease, lumbar Elevated cholesterol Lumbar herniated disc Hypertension Surgical History Hx of removal of cyst Hx of umbilical hernia repair Hx of cystoscopy History of surgery H/O prostatectomy H/O left knee surgery Hx of hernia repair H/O colonoscopy Family History Father No problems noted. Mother No problems noted. Brother Substance use disorder Sister Substance use disorder Paternal Uncle Mental health disorder Paternal Aunt Mental health disorder Social History Alcohol intake: current Alcohol intake frequency: former alcohol drinker Comment: medicated in pacu Patient Tobacco Use Status: Never used Tobacco Questionnaire Medicare Wellness Checkup [age] What gender do you identify with?: male During the past 4 weeks, how much have you been bothered by emotional problems such as feeling anxious, depressed, irritable, sad or downhearted, and blue?: moderately During the past 4 weeks, has your physical & emotional health limited your social activities with family, friends, neighbors, or groups?: moderately During the past 4 weeks, how much bodily pain have you generally had?: severe pain During the past 4 weeks, was someone available to help you if you needed & wanted help?: yes, some During the past 4 weeks, what was the hardest physical activity you could do for at least 2 minutes?: moderate Can you get to places out of walking distance without help? (For eg., can you travel alone on buses, taxis or drive your car?): Yes Can you go shopping for groceries or clothes without someone's help?: Yes Can you prepare your own meals?: Yes Can you do your housework without help?: Yes Because of any health problems, do you need the help of another person with your personal care needs such as eating, bathing, dressing or getting around the house?: No Can you handle your own money without help?: Yes During the past 4 weeks, how would you rate your health in general?: good During the past 4 weeks how have things been going for you?: good & bad parts about equal Are you having difficulties driving your car?: no Do you always fasten your seat belt when you are in a car?: yes, usually During past 4 weeks, have you been bothered by the following: never: Trouble eating well?, seldom: Teeth or denture problems? and Problems using the telephone?, sometimes: Tiredness or fatigue? and often: Falling or dizzy when standing up and Sexual problems? Have you fallen 2 or more times in the past year?: No Are you afraid of falling?: No Are you a smoker?: no During the past 4 weeks, how many drinks of wine, beer, or other alcoholic beverages did you have?: no alcohol at all Do you exercise for about 20 minutes 3 or more times a week?: yes, some of the time Have you been given information to help with the following?: yes: Keeping track of your medications? and no: Hazards in your house that might hurt you? How often do you have trouble taking medicines the way you have been told to take them?: I always take medicine as prescribed How confident are you that you can control & manage most of your health problems?: very confident What is your race?: White Mini Mental State Exam (MMSE) Orientation What is the (year) (season) (date) (day) (month)?: year (2022) Where are we (state) (county) (town or city) (hospital) (floor)?: state Registration Name of 3 unrelated objects clearly and slowly, then ask patient to repeat all 3 of them. (1st repeat determines score. Make sure they can repeat all three): object 1, object 2 and object 3 Attention & Calculation (CHOOSE ONE) Spell WORLD backwards (DLROW): 5 letters Recall Ask patient to repeat the 3 items from question #3.: object 1, object 2 and object 3 Language Show patient a wristwatch & ask what it is. Repeat for pencil.: watch and pencil Ask the patient to repeat the phrase 'No ifs, ands, or buts' after you.: correct Ask the patient to 'take a piece of paper with their right hand' 'fold paper in half' 'place paper on floor': take paper in right hand, fold paper in half and place paper on floor Print the sentence 'CLOSE YOUR EYES' on a piece. If patient actually closes eyes then score.: followed written direction Give patient a blank piece of paper & ask to write a sentence. Score if it contains a noun & verb.: sentence contains subject and verb Ask patient to copy figure of intersecting pentagons exactly. Score if all 10 angles & 2 intersects are included.: all 10 angles present & 2 are intersected Score Score: 22 Activity of Daily Living Bathing - sponge bath, tub bath or shower: receives no assistance (gets in/out by self, if usual bathing means Dressing - getting clothes from closets & drawers, including inner/outer garments & fasteners.: gets clothes & gets completely dressed without help Toileting - going to the 'toilet room' for urine/bowel elimination & cleaning self/arranging clothes: goes to toilet room, cleans self, arranges clothes without help Transfer: moves in & out of bed and chair without help (may use support object) Continence: controls urination/bowel movements completely by self Feeding: feeds self without help Total Score: 0 Information obtained from: patient Using telephone: independent Traveling: independent Shopping: independent Preparing meals: independent Housework: independent Taking medicine: independent Managing money: independent PHQ-9 Over the last 2 weeks, how often have you been bothered by any of the following problems? 1. Little interest or pleasure in doing things: more than half the days 2. Feeling down, depressed, or hopeless: several days 3. Trouble falling or staying asleep, or sleeping too much: nearly every day 4. Feeling tired or having little energy: more than half the days 5. Poor appetite or overeating: not at all 6. Feeling bad about yourself - or that you are a failure or have let yourself or your family down: more than half the days 7. Trouble concentrating on things, such as reading the newspaper or watching television: several days 8. Moving or speaking so slowly that other people could have noticed. Or the opposite - being so fidgety or restless that you have been moving around a lot more than usual: more than half the days 9. Thoughts that you would be better off or of hurting yourself in some way: several days Total score: 14 Depression Screening Interpretation: Positive Depression Screening Follow-up: Existing condition and Declines treatment Depression Screening Done: Yes 72488 - PHQ-9 Billing: Yes Source: Developed by Drs. Jet Rodas, Katelin SosaMark and colleagues, with an educational todd from [employer]. Review of Systems Const Reports as per HPI Physical Exam Const General: cooperative Orientation/consciousness: patient oriented x3 Resp Effort & Inspection: normal respiratory effort Auscultation: clear to auscultation bilaterally Cardio Rate: regular rate Rhythm: regular rhythm Heart sounds: S1 normal heart sound present and S2 normal heart sound present Skin Other: left lateral epicondyle with cystic formation Neuro Other: - romberg, can tandem walk, can walk and turn, can rise from sitting to standing, passed whisper test General: patient oriented x3 Psych Appearance: grossly normal Mental Status: mental status grossly normal Speech and movement: Normal speech and movement present Affect: normal affect Attitude: cooperative Thought process: Normal thought process present Thought content: Normal thought content present Insight: Good insight present (Psych) Judgement: Good judgement present (Psych) Assessment & Plan Assessment & Plan (1) Hypertension: Code(s): I10 - Essential (primary) hypertension Plan: Starting lisinopril-hctz, labs ordered (2) Cyst: Plan: Referred to ortho (3) Elbow pain: Code(s): M25.529 - Pain in unspecified elbow Plan: Referred to ortho (4) Encounter for annual wellness visit (AWV) in Medicare patient: Code(s): Z00.00 - Encounter for general adult medical examination without abnormal findings Plan: Forms filled out Plan The patient agreed to the use of a medical technicians for this encounter. Scribed for BLAYNE Pacheco- by Elizabeth Martinez medical technicians, on 03/08/2023 at 11:35 EST. Orders: Orders UA CC w/rflx Micro + Cult Today I10 - Essential (primary) hypertension Complete Blood Count Auto Diff Today I10 - Essential (primary) hypertension Comprehensive [place]. Panel Fast Today I10 - Essential (primary) hypertension TSH reflex Free T4 Today I10 - Essential (primary) hypertension Lipid Panel Today I10 - Essential (primary) hypertension Referrals Orthopedics Referral M25.529 - Pain in unspecified elbow Medications: New lisinopril-hydrochlorothiazide 10-12.5 mg 1 tab PO DAILY 90 tabs 0RF Discontinued lisinopril Discontinued Reason: Ancillary Entered New Order 5 mg PO DAILY 90 tabs 0RF Quality Reporting (2019) Depression/Bipolar (159/160/161/177) PHQ-9: Total score: 14 Coding Level of Care Code Medicare Subsequent (G0439) Est Pt Level 3 (64654) Diagnoses Hypertension I10 Cyst Elbow pain M25.529 Encounter for annual wellness visit (AWV) in Medicare patient Z00.00 CPT Codes Advance Care Planning - Time spent: 16-45 minutes ([id number]) Advance Care Planning Forms completed: Health Care Proxy (form given to pt to fill out), MOLST (form given to pt to fill out) and Living will (not done, i dont have a lot ) Time spent: 16-45 minutes Actual minutes spent: 16
== END 2023-03-08 12:18 | disposition home or self-care (01) ==
PROVIDERS: PCP Nurse Practitioner Family; Visit Provider Nurse Practitioner Family
DX: Z00.00 Encounter for general adult medical examination without abnormal findings (principal); I10 Essential (primary) hypertension; M25.529 Pain in unspecified elbow
CPT/HCPCS: 99213; 99497; G0439

== ENCOUNTER 2023-03-30 09:26 | Outpatient (REF) | payer MEDICARE, SELFPAY | END 2023-03-30 09:27 | disposition home or self-care (01) | LOC: HO.HOSX 09:26 | PROVIDERS: Visit Provider Physician Assistant | DX: M71.322 Other bursal cyst, left elbow (principal) | CPT/HCPCS: 73080; 99202 ==

== ENCOUNTER 2023-03-30 13:46 | Outpatient (AMB) | payer MEDICARE, MEDICAID, SELFPAY ==
--- NOTE | 2023-03-30 13:48 | A.OFFVIS_ITS ---
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 Patient reports that he has had a cyst of the left elbow for the last four years now. When he exercises or over strains the elbow the syst swells up and becomes itchy. He has not had the elbow drained before. He would like the cyst removed. 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 He states he has a cyst on his left elbow for the past 4 years. His cyst swells up and becomes itchy as well as painful with exercises or any type of strain to the area. He denies any redness or drainage. He states he has not had any treatment to date. [facility] Medical History (Reviewed 02/12/23 @ 13:09 by Karlee Crawford COUNTS INCLUDE 234 BEDS AT THE [facility]) Sleep walking Degenerative disc disease, lumbar Elevated cholesterol Lumbar herniated disc Hypertension Surgical History Hx of removal of cyst Hx of umbilical hernia repair Hx of cystoscopy History of surgery H/O prostatectomy H/O left knee surgery Hx of hernia repair H/O colonoscopy Family History Father No problems noted. Mother No problems noted. Brother Substance use disorder Sister Substance use disorder Paternal Uncle Mental health disorder Paternal Aunt Mental health disorder Social History Alcohol intake: current Alcohol intake frequency: former alcohol drinker Comment: medicated in pacu Patient Tobacco Use Status: Never used Tobacco Review of Systems Const All systems reviewed & are unremarkable except as noted in HPI and below Physical Exam Const General: cooperative, healthy appearing, comfortable, no acute distress, well developed and alert Orientation/consciousness: patient oriented x3 HEENT Head: Yes normal to inspection, Yes normocephalic and Yes atraumatic Eyes General: appearance normal, both eyes and all related structures Resp Effort & Inspection: normal respiratory effort and able to speak in complete sentences Cardio Rate: regular rate Peripheral pulses: Peripheral pulses 2+ throughout GI Palpation (GI): Soft to palpation Skin Lesions: no lesions Rashes: no rashes Neuro General: patient oriented x3 Extrem Other: Left elbow: Normal to inspection. He does have area over the lateral epicondyle that resembles a lipoma which becomes more prominent with wrist extension against resistance. No tenderness to palpation over this area. NVI. Results Reviewed Results Reviewed: Xrays were obtained in the office today and personally reviewed by me of the left elbow are negative for bony abnormality or evidence of cyst formation Assessment & Plan Assessment & Plan (1) Synovial cyst of elbow: Code(s): M71.329 - Other bursal cyst, unspecified elbow Plan An MRI of the left elbow has been ordered to further evaluate the etiology of this cyst to determine if this is a lipoma or ganglion type in nature. He will see us back once the scan is complete. He is content with this plan. Orders: Orders XR elbow LT min 3V 03/30/23 M25.522 - Pain in left elbow MR elbow LT wo/w con 03/30/23 D17.9 - Benign lipomatous neoplasm, unspecified Patient Instructions: Scribed for Batool Barrios PA-C, by Dilshad Hernandez veterinary medical officer, on 03/30/2023 at 2:00 PM EST. I, Batool Barrios PA-C, have personally reviewed and agree with the information entered by the scribe. Coding Level of Care Code New Pt Level 3 (95048) Diagnoses Synovial cyst of elbow M71.329
== END 2023-03-30 14:14 | disposition home or self-care (01) ==
PROVIDERS: PCP Nurse Practitioner Family; Visit Provider Physician Assistant
DX: M71.329 Other bursal cyst, unspecified elbow (principal)
CPT/HCPCS: 99203

== ENCOUNTER 2023-04-14 08:59 | Outpatient (REF) | payer MEDICARE, MEDICAID, SELFPAY ==
[2023-04-14 09:18] LABS: MANUAL DIFF FLAG NO
[2023-04-14 09:55] LABS: Basophils Percent Auto 0.6 % (0-2); Eosinophils Absolute Auto 0.1 X10*3/uL (0.0-0.4); Eosinophils Percent Auto 2.2 % (0-4); Hematocrit 44.5 % (42.0-52.0); Hemoglobin 14.8 g/dl (14.0-18.0); Imm Gran Abs Auto 0.02 X10*3/uL (0.00-0.03); Imm Gran Pct Auto 0.3 % (0.0-0.4); Lymphocytes Absolute Auto 2.1 X10*3/uL (1.2-4.9); Lymphocytes Percent Auto 33.4 % (20-40); Mean Corpuscular HGB Conc 33.3 g/dl (31.0-36.0); Mean Corpuscular Volume 90.1 fL (80.0-98.0); Mean Platelet Volume 9.3 fL (9.4-12.4); Monocytes Absolute Auto 0.5 X10*3/uL (0.1-1.2); Monocytes Percent Auto 8.3 % (2-11); Neutrophils Absolute Auto 3.5 x10*3/uL (2.0-8.3); Neutrophils Percent Auto 55.2 % (45-73); Platelet Count 208 X10*3/uL (160-400); Red Blood Count 4.94 X10*6/uL (4.60-5.80); Red Cell Distribution Width 12.6 % (11.0-16.0); White Blood Count 6.3 X10*3/uL (4.8-10.8)
[2023-04-14 10:07] LABS: Appearance Urine Clear; Color Urine Yellow; Glucose Urine UA Negative (Negative); Leukocyte Esterase Urine Negative (Negative); Nitrite Urine Negative (Negative); PH 5.5 (5.0-9.0); Specific Gravity - Urine 1.025 (1.005-1.025); UMIC TRIGGER UACC YES; Urine Blood Moderate (2+) (Negative); Urine Ketones Negative (Negative); Urine Protein Trace mg/dL (Neg-Trace)
[2023-04-14 10:51] LABS: Bacteria Urine None Seen (None Seen); Hyaline Casts Urine 0-2 /LPF (0-2); RBC Urine 0-2 /HPF (0-2); Squamous Epithelial Cell Urine 0-2 /HPF (0-2); WBC Urine 0-5 /HPF (0-5)
[2023-04-14 10:53] LABS: Alanine Aminotransferase 25 U/L (0-40); Albumin Level 4.4 g/dL (3.5-5.0); Alkaline Phosphatase 63 U/L (39-117); Anion Gap 14 (12-20); Aspartate Amino Transferase 22 U/L (5-37); Bilirubin Total 0.8 mg/dL (0.0-1.0); Blood Urea Nitrogen 19 mg/dL (9-16); Calcium 9.7 mg/dL (8.4-10.2); Carbon Dioxide 29 mmol/L (22-29); Chloride 104 mmol/L (96-108); Cholesterol 167 mg/dL (<200); Estimated Glomerular Filt Rate > 60; Glucose Fasting 100 mg/dL (60-99); HDL Cholesterol 36 mg/dL (>40); LDL Cholesterol Calculated 102 mg/dL (<100); Sodium 143 mmol/L (135-145); Total Protein 7.3 g/dL (6.5-8.0); Triglycerides 147 mg/dL (<150)
[2023-04-14 11:11] LABS: TSH reflex Free T4 1.84 uIU/mL (0.32-4.0)
== END 2023-04-14 09:00 | disposition home or self-care (01) ==
LOC: HO.LAB 08:59
PROVIDERS: PCP Nurse Practitioner Family; Visit Provider Nurse Practitioner Family
DX: I10 Essential (primary) hypertension (principal)
CPT/HCPCS: 36415; 80053; 80061; 81001; 84443; 85025

== ENCOUNTER 2023-04-15 12:34 | Outpatient (REF) | payer MEDICARE, MEDICAID, SELFPAY ==
[2023-04-15 14:23] LABS: Prostate Specific Antigen Scr 0.55 ng/mL (<0.05-4.0)
== END 2023-04-15 12:35 | disposition home or self-care (01) ==
LOC: HO.LAB 12:34
PROVIDERS: PCP Nurse Practitioner Family; Visit Provider Nurse Practitioner Family
DX: Z12.5 Encounter for screening for malignant neoplasm of prostate (principal)
CPT/HCPCS: 36415; 84153

== ENCOUNTER 2023-05-14 13:26 | Outpatient (REF) | payer MEDICARE, MEDICAID, SELFPAY | END 2023-05-14 13:27 | disposition home or self-care (01) | LOC: HO.MRI 13:26 | PROVIDERS: PCP Nurse Practitioner Family; Visit Provider Physician Assistant | DX: Z13.89 Encounter for screening for other disorder (principal) ==

== ENCOUNTER 2023-07-12 09:15 | Outpatient (REF) | payer MEDICARE, MEDICAID, SELFPAY ==
[2023-07-12 09:35] LABS: MANUAL DIFF FLAG NO
[2023-07-12 10:29] LABS: Appearance Urine Clear; Color Urine Yellow; Glucose Urine UA Negative (Negative); Leukocyte Esterase Urine Negative (Negative); Nitrite Urine Negative (Negative); PH 5.5 (5.0-9.0); UMIC TRIGGER UACC YES; Urine Blood Moderate (2+) (Negative); Urine Ketones Negative (Negative); Urine Protein 30 (1+) mg/dL (Neg-Trace)
[2023-07-12 10:32] LABS: Basophils Percent Auto 0.6 % (0-2); Eosinophils Absolute Auto 0.1 X10*3/uL (0.0-0.4); Eosinophils Percent Auto 1.8 % (0-4); Hematocrit 45.8 % (42.0-52.0); Hemoglobin 15.4 g/dl (14.0-18.0); Imm Gran Abs Auto 0.02 X10*3/uL (0.00-0.03); Imm Gran Pct Auto 0.3 % (0.0-0.4); Lymphocytes Absolute Auto 2.1 X10*3/uL (1.2-4.9); Lymphocytes Percent Auto 29.1 % (20-40); Mean Corpuscular HGB Conc 33.6 g/dl (31.0-36.0); Mean Corpuscular Hemoglobin 30.3 pg (27.0-33.0); Mean Corpuscular Volume 90.2 fL (80.0-98.0); Mean Platelet Volume 9.8 fL (9.4-12.4); Monocytes Absolute Auto 0.6 X10*3/uL (0.1-1.2); Monocytes Percent Auto 8.5 % (2-11); Neutrophils Absolute Auto 4.2 x10*3/uL (2.0-8.3); Neutrophils Percent Auto 59.7 % (45-73); Platelet Count 210 X10*3/uL (160-400); Red Blood Count 5.08 X10*6/uL (4.60-5.80); Red Cell Distribution Width 12.4 % (11.0-16.0); White Blood Count 7.1 X10*3/uL (4.8-10.8)
[2023-07-12 10:45] LABS: Bacteria Urine None Seen (None Seen); Hyaline Casts Urine 0-2 /LPF (0-2); RBC Urine 0-2 /HPF (0-2); Squamous Epithelial Cell Urine 0-2 /HPF (0-2); WBC Urine 0-5 /HPF (0-5)
[2023-07-12 11:18] LABS: Alanine Aminotransferase 44 U/L (0-40); Albumin Level 4.3 g/dL (3.5-5.0); Alkaline Phosphatase 67 U/L (39-117); Anion Gap 10 (12-20); Aspartate Amino Transferase 23 U/L (5-37); Bilirubin Total 0.7 mg/dL (0.0-1.0); Blood Urea Nitrogen 18 mg/dL (9-16); Calcium 9.4 mg/dL (8.4-10.2); Carbon Dioxide 31 mmol/L (22-29); Chloride 106 mmol/L (96-108); Estimated Glomerular Filt Rate > 60; Glucose Random 87 mg/dL (60-115); Potassium 3.4 mmol/L (3.3-5.1); Sodium 144 mmol/L (135-145); TSH reflex Free T4 2.06 uIU/mL (0.32-4.0); Total Protein 7.2 g/dL (6.5-8.0)
== END 2023-07-12 09:16 | disposition home or self-care (01) ==
LOC: HO.LAB 09:15
PROVIDERS: PCP Nurse Practitioner Family; Visit Provider Nurse Practitioner Family
DX: I10 Essential (primary) hypertension (principal)
CPT/HCPCS: 36415; 80053; 81001; 84443; 85025

== ENCOUNTER 2023-08-18 13:10 | Outpatient (AMB) | payer MEDICARE, MEDICAID, SELFPAY ==
--- NOTE | 2023-08-18 13:27 | A.OFFVIS_ITS ---
Intake Visit Reasons: 6M Urinalysis Check Intake Note: Patient is Present for Urinalysis Check Urology Med: None Antibiotic Allergy: None Blood Thinner: None Board Certified Behavioral Analyst Required: No Accompanied by: Self / Same As Patient Allergies tamsulosin [Flomax] Allergy (Intermediate, Verified 08/18/23 13:28) Irritated throat/sinuses oxycodone [From PERCOCET] Allergy (Mild, Verified 08/18/23 13:28) ITCHY aspirin [ASA] Adverse Reaction (Intermediate, Verified 08/18/23 13:28) GI UPSET, upset stomach pollen extracts [POLLEN] Adverse Reaction (Intermediate, Verified 08/18/23 13:28) SINUS PROBLEMS fluticasone [From Flonase] Adverse Reaction (Verified 08/18/23 13:28) Unknown HPI Comments Details: Rory is a pleasant male. He is a patient of Dr. Pires. He is seen for the following urologic conditions - lower urinary tract symptoms - microscopic hematuria - epididymal tenderness Primary issue is epididymal tenderness Left epididymal head scarring with tenderness on exam Discussed resection He would like to move ahead Microscopic hematuria Cysto and imaging evaluation completed 2021 Lower urinary tract symptoms Underwent prostate procedure in office February 2017 Continued benefit PSA - 10/23 0.49, 10/23 0.56 PFSH Medical History Sleep walking Degenerative disc disease, lumbar Elevated cholesterol Lumbar herniated disc Hypertension Surgical History Hx of removal of cyst Hx of umbilical hernia repair Hx of cystoscopy History of surgery H/O prostatectomy H/O left knee surgery Hx of hernia repair H/O colonoscopy Family History Father No problems noted. Mother No problems noted. Brother Substance use disorder Sister Substance use disorder Paternal Uncle Mental health disorder Paternal Aunt Mental health disorder Social History Alcohol intake: current Alcohol intake frequency: former alcohol drinker Comment: medicated in pacu Patient Tobacco Use Status: Never used Tobacco Review of Systems Const Denies chills and Denies fever(s) Card Reports no additional complaints and Denies syncope Resp Denies cough GI Denies abdominal pain and Denies heartburn Reports as per HPI and Denies change in libido Neuro Denies syncope Psych Denies change in libido Endo Denies change in libido Physical Exam Const General: cooperative, healthy appearing, comfortable and no acute distress Orientation/consciousness: patient oriented x3 HEENT Face and sinus: Yes normal facial exam Mouth: moist mucous membranes Neck Neck: Yes normal visual inspection, Yes full ROM and Yes trachea midline Chest Chest palpation & inspection: normal inspection of the chest Resp Effort & Inspection: normal respiratory effort, able to speak in complete sentences and no respiratory distress GI Inspection: Yes normal to inspection Back/Spine/Pelvis Cervical Spine: normal cervical lordosis Thoracic/Lumbar Spine: thoracic and lumbar spine normal to inspection Skin General skin exam: no rashes or lesions noted Neuro General: patient oriented x3, gait normal, tone normal and moves all extremities Extrem General: Yes normal to inspection and Yes capillary refill normal Results AMB Urinalysis, Automated UA Leukoctes 0 Dipesh/uL Last Edit by GLADIS Lane on 08/18/23 13:40 UA Nitrite Negative Last Edit by GLADIS Lane on 08/18/23 13:40 UA Urobilinogen 0 mg/dL Last Edit by GLADIS Lane on 08/18/23 13:40 UA Protein 30 mg/dL Last Edit by GLADIS Lane on 08/18/23 13:40 1+ Juan Yoder 08/18/23 13:40 UA pH 5.5 Last Edit by GLADIS Lane on 08/18/23 13:40 UA Blood 200 Moise/uL Last Edit by GLADIS Lane on 08/18/23 13:40 3+ Juan Yoder 08/18/23 13:40 UA Specific [place] 1.020 Last Edit by GLADIS Lane on 08/18/23 13: 40 UA Ketone Negative Last Edit by GLADIS Lane on 08/18/23 13:40 UA Bilirubin 0 mg/dL Last Edit by FRANDY LaneA on 08/18/23 13:40 UA Glucose 0 mg/dL Last Edit by GLADIS Lane on 08/18/23 13:40 Results Reviewed Results Reviewed: Laboratory Last Values Urine pH (Auto) 5.5 08/18/23 13:30 Specific [place] (Auto) 1.020 08/18/23 13:30 Urine Protein (Auto) 30 mg/dL 08/18/23 13:30 Glucose (UA)(Auto) 0 mg/dL 08/18/23 13:30 Urine Ketones (Auto) Negative 08/18/23 13:30 Urine Blood (Auto) 200 Moise/uL 08/18/23 13:30 Urine Nitrite (Auto) Negative 08/18/23 13:30 Urine Bilirubin (Auto) 0 mg/dL 08/18/23 13:30 Urine Urobilinogen (Auto) 0 mg/dL 08/18/23 13:30 Leukocyte Esterase (Auto) 0 Dipesh/uL 08/18/23 13:30 Assessment & Plan Assessment & Plan (1) Epididymal pain: Code(s): N50.819 - Testicular pain, unspecified Category: Medical (2) Microscopic hematuria: Code(s): R31.29 - Other microscopic hematuria Category: Medical Plan Risks, benefits and alternatives to therapy were discussed. These include but are not limited to infection, bleeding, damage to local organs and tissues, need for further interventions. Anesthetic risks regarding cardiac arrhythmia, blood clots, and potential mortality were discussed. The patient understands the typical recovery time and the outpatient nature of the procedure. After consideration of these risks the patient gives full informed consent and they wish to move ahead with the procedure. Left partial epididymectomy Orders: Orders AMB Urinalysis Automated 08/18/23 Z13.9 - Encounter for screening, unspecified Patient Instructions: Imaging studies, laboratory and physical exam results were discussed and reviewed in detail. No major barriers to patient understanding were identified. An opportunity to ask questions regarding the treatment plan was provided. All questions were answered. The patient expressed understanding and agreement with the above treatment plan. The patient is aware they should contact our office by phone for worsening of their current condition or the appearance of new urologic symptoms. Compliance is encouraged with any medications and followup testing that is ordered. It is a privilege to participate in the urologic care of your patient. If you have any questions or concerns regarding treatment for the above conditions, or other urologic issues, please do not hesitate to contact me. The office telephone contact is [phone]. This note is constructed using voice recognition software. While every effort has been made to ensure accuracy evidence specialist errors may have been included. Yours sincerely, Dr Carlos Gil MD, [facility] - Urology Providers of Expert, Compassionate Care for the Genitourinary System Coding Level of Care Code Est Pt Level 4 (80344) Diagnoses Epididymal pain N50.819 Microscopic hematuria R31.29
== END 2023-08-18 14:13 | disposition home or self-care (01) ==
PROVIDERS: PCP Nurse Practitioner Family; Visit Provider Urology
DX: N50.819 Testicular pain, unspecified (principal); R31.29 Other microscopic hematuria
CPT/HCPCS: 99214

== ENCOUNTER → 2023-08-18 13:10 | Outpatient (BNVA) | payer MEDICARE, MEDICAID, SELFPAY | PROVIDERS: PCP Nurse Practitioner Family; Visit Provider Urology | DX: N40.1 Benign prostatic hyperplasia with lower urinary tract symptoms (principal); N13.8 Other obstructive and reflux uropathy; R31.29 Other microscopic hematuria; N45.1 Epididymitis | CPT/HCPCS: 81003; 99212 ==

== ENCOUNTER 2023-10-18 12:05 | Day surgery (SDC) | payer MEDICARE, MEDICAID, SELFPAY ==
--- NOTE | 2023-10-14 13:36 | HO.ANESPROP2 ---
Documented by User: Teresa Reis NP 10/14/23 13:37 HPI - Anesthesia Eval Consult details Narrative: 73yo M for Left Partial Epididymectomy PMFSH Active Problems Active Problems: All Active Problems Epididymal pain (Acute) Screening for prostate cancer (Acute) Synovial cyst of elbow (Acute) Elbow pain (Acute) Microscopic hematuria (Acute) Dyslipidemia (Acute) Umbilical hernia (Acute) Cyst (Acute) Ventral hernia (Acute) Lower urinary tract symptoms due to benign prostatic hyperplasia (Acute) Encounter for annual wellness visit (AWV) in Medicare patient (Acute) Varicose veins of right lower extremity with inflammation (Acute) Varicose veins of left lower extremity with inflammation (Acute) Hypertension (Acute) Past Medical History Medical History (Updated 08/18/23 @ 14:09 by Carlos Gil MD) Sleep walking Degenerative disc disease, lumbar Elevated cholesterol Lumbar herniated disc Hypertension Family History Family History Father No problems noted. Mother No problems noted. Brother Substance use disorder Sister Substance use disorder Paternal Uncle Mental health disorder Paternal Aunt Mental health disorder Family history of problems with anesthesia: No Surgical History Surgical History (Updated 10/14/23 @ 13:54 by Mary Jo Carrasco RN) History of surgery on lower extremity Hx of removal of cyst Hx of umbilical hernia repair Hx of cystoscopy History of surgery H/O prostatectomy H/O left knee surgery Hx of hernia repair H/O colonoscopy History of Problems with Anesthesia: No Social History Social History Alcohol intake: current Alcohol intake frequency: does not drink Comment: medicated in pacu Patient Tobacco Use Status: Never used Tobacco Use of substances other than those prescribed or required for medical reasons: No Are you DNR?: No Advance Directives: No Advance Directives Information Provided: Yes Meds Allergies Allergy/AdvReac Type Severity Reaction Status Date / Time tamsulosin [Flomax] Allergy Intermediate Irritated Verified 10/18/23 13:02 throat/sinuses oxycodone [From PERCOCET] Allergy Mild ITCHY Verified 10/18/23 13:02 aspirin [ASA] AdvReac Intermediate GI UPSET, Verified 10/18/23 13:02 upset stomach pollen extracts [POLLEN] AdvReac Intermediate SINUS Verified 10/18/23 13:02 PROBLEMS fluticasone [From Flonase] AdvReac Unknown Unknown Verified 10/18/23 13:02 Home Medications ?Medication ?Instructions ?Recorded ?Confirmed ?Last Taken ?Type cetirizine 10 mg tablet (Allergy 10 mg PO DAILY PRN Allergy Symptoms 01/20/21 10/14/23 Unknown History Relief (cetirizine)) diphenhydramine 25 1 tab PO BEDTIME PRN Insomnia 02/19/22 10/14/23 Unknown History mg-acetaminophen 500 mg tablet (Tylenol PM Extra Strength) multivitamin 1 unit PO DAILY 10/18/23 10/18/23 Unknown History Exam Pertinent Lab Results Pertinent Lab Results: Laboratory Tests 07/12/23 09:35 WBC 7.1 Hgb 15.4 Hct 45.8 Plt Count 210 Sodium 144 Potassium 3.4 Chloride 106 Carbon Dioxide 31 H BUN 18 H Creatinine 0.89 Assessment and Plan Assessment Anesthesia Assessment: Chart Reviewed Final Anesthetic Review Family History of Problems with Anesthesia: No History of Problems with Anesthesia: No Documented by User: Malik Canales MD 10/18/23 14:34 [facility] Past Medical History Medical History (Updated 08/18/23 @ 14:09 by Carlos Gil MD) Sleep walking Degenerative disc disease, lumbar Elevated cholesterol Lumbar herniated disc Hypertension Family History Family History Father No problems noted. Mother No problems noted. Brother Substance use disorder Sister Substance use disorder Paternal Uncle Mental health disorder Paternal Aunt Mental health disorder Surgical History Surgical History (Updated 10/14/23 @ 13:54 by Mary Jo Carrasco RN) History of surgery on lower extremity Hx of removal of cyst Hx of umbilical hernia repair Hx of cystoscopy History of surgery H/O prostatectomy H/O left knee surgery Hx of hernia repair H/O colonoscopy Social History Social History Alcohol intake: current Alcohol intake frequency: does not drink Comment: medicated in pacu Patient Tobacco Use Status: Never used Tobacco Use of substances other than those prescribed or required for medical reasons: No Are you DNR?: No Advance Directives: No Advance Directives Information Provided: Yes Meds Allergies Allergy/AdvReac Type Severity Reaction Status Date / Time tamsulosin [Flomax] Allergy Intermediate Irritated Verified 10/18/23 13:02 throat/sinuses oxycodone [From PERCOCET] Allergy Mild ITCHY Verified 10/18/23 13:02 aspirin [ASA] AdvReac Intermediate GI UPSET, Verified 10/18/23 13:02 upset stomach pollen extracts [POLLEN] AdvReac Intermediate SINUS Verified 10/18/23 13:02 PROBLEMS fluticasone [From Flonase] AdvReac Unknown Unknown Verified 10/18/23 13:02 Home Medications ?Medication ?Instructions ?Recorded ?Confirmed ?Last Taken ?Type cetirizine 10 mg tablet (Allergy 10 mg PO DAILY PRN Allergy Symptoms 01/20/21 10/14/23 Unknown History Relief (cetirizine)) diphenhydramine 25 1 tab PO BEDTIME PRN Insomnia 02/19/22 10/14/23 Unknown History mg-acetaminophen 500 mg tablet (Tylenol PM Extra Strength) multivitamin 1 unit PO DAILY 10/18/23 10/18/23 Unknown History Exam Airway Mallampati Class: II TM Dist: >3cm Neck ROM: Full Partial: Upper Heart: ok Lungs: ok Assessment and Plan Assessment Anesthesia Assessment: Anesthesia Plan Discussed Final Anesthetic Review NPO: Yes ASA Class: III Final Preanesthetic Review: No Changes in Pt Med Stat, Meds/Allgs Chart Reviewed, Consent Obtained/Reviewed and Anes Risks/Benef Reviewed Patient Risk: Intermediate Procedure Risk: Low Anesthetic Plan Anesthetic Plan: GA and Agree w/ Assess. and Plan Disposition: Standard PACU
[2023-10-18 13:08] VITALS: BMI 39.3
[2023-10-18 13:13] VITALS: BP 132/70; PULSE 83; RESP 16; TEMP 36.8; O2SAT 96
--- NOTE | 2023-10-18 14:12 | MHC.SHP ---
Pre-Procedural Eval Section A - 24 Hr Update-Section A only Date of Service: 10/18/23 The patient is an INPATIENT: No Changes since office visit: No Cold of Flu in the past 2 weeks, No New Medical Problems, No Changes in Medication and No Patient answered all questions The patient has been examined within 24 hours of the surgical procedure. The History & Physical has been completed within 30 days and I have reviewed it.: Yes Section B - Complete if H&P > 30 days Chief Complaint: Epididymitis Details of Present Illness: Partial left epididymectomy Relevant Social History: None Present Medications: see Short Stay Collaborative assessment Medical History: No relevant PMH History of Previous Operations: No relevant previous surgery Allergies: Allergies Allergy/AdvReac Type Severity Reaction Status Date / Time tamsulosin [Flomax] Allergy Intermediate Irritated Verified 10/18/23 13:02 throat/sinuses oxycodone [From PERCOCET] Allergy Mild ITCHY Verified 10/18/23 13:02 aspirin [ASA] AdvReac Intermediate GI UPSET, Verified 10/18/23 13:02 upset stomach pollen extracts [POLLEN] AdvReac Intermediate SINUS Verified 10/18/23 13:02 PROBLEMS fluticasone [From Flonase] AdvReac Unknown Unknown Verified 10/18/23 13:02 Review of Systems Sugical H&P ROS: Negative: Constitution, Cardiovascular, Respiratory, Neurological, Psychiatric, Hem-Onc, Allergic/Immunologic, Gastrointestinal, Genitourinary, Musculoskeletal, Integumentary, Endocrine and Eyes/Ears/Nose/Throat Exam Surgical H&P Exam: Normal: HEENT, Normal: Heart, Normal: Lungs, Normal: Extremities, Normal: Abdomen, Normal: Skin and Normal: Neurological Plan Diagnosis/Plan: Unchanged (Left partial epididymectomy) I have reviewed the history and physical and performed a pertinent physical examination on my patient. No changes have occurred unless specified. Time Spent With Patient Time: Total time managing care of this patient today ____ minutes.
--- NOTE | 2023-10-18 15:26 | P.OP_ITS ---
Operative Note Operative Note Date of Service: 10/18/23 Narrative: PreOperative Diagnosis: Left epididymal cyst Post Operative Diagnosis: Left epididymal cyst Procedure: Partial left epididymal head resection Surgeon: Dr Carlos Gil Anesthesia: General Indications for procedure: Left painful epididymal head with small cyst Procedure: After informed consent was verified the patient was brought to the operating room and placed in a supine position. Anesthesia was administered per protocol. Patient was appropriately shaved and genitals were prepped and draped in sterile fashion. Safety pause time-out was performed. Antibiotics being given. Local anesthetic was infiltrated under the skin in a horizontal fashion on the scrotum. Skin incision was made using a blade through the subdermal layer. The tunica around the testicle was elevated and dissected free from surrounding tissue. A small incision was made through the tunic. Fluid was removed. The testicle was delivered from the tunic. The head of the epididymis was was carefully dissected from the left testicle. Note was made of fat within the sulci groove indicating prior inflammation of the epididymal structures. Dissection carefully released proximally 1 cm the head of the epididymis attached onto the testicle. This was taken back to the small feeding vessel. T his point the vessel was cauterized. The head of the epididymis was marked with a stay suture and then divided with cautery. The stump was sewn with [id number] 3-0 Vicryl suture. The testicle was placed back within tunica inside the scrotum. The tunica was closed using a running 3-0 Vicryl suture. Overlying tissue was reapproximated using a running 3-0 Vicryl suture. Skin was closed with subcutaneous 4-0 Monocryl sutures. Soft fluff sponges were placed with mesh pants as dressing. Local anesthetic was placed in inguinal cord for post procedure pain relief. Patient tolerated procedure well was extubated in operating room transferred in stable condition to the recovery area Pathology: Epididymal head Drains: []
[2023-10-18 15:30] VITALS: BP 141/94; PULSE 88; RESP 16; TEMP 36.8; O2SAT 93
[2023-10-18 15:35] VITALS: BP 147/92; PULSE 87; RESP 16; O2SAT 96
[2023-10-18 15:40] VITALS: BP 152/93; PULSE 84; RESP 16; O2SAT 97
[2023-10-18 15:45] VITALS: BP 139/74; PULSE 79; RESP 16; O2SAT 97
[2023-10-18 15:59] VITALS: BP 154/86; PULSE 76; RESP 16; TEMP 36.6; O2SAT 95
== END 2023-10-18 16:12 | disposition home or self-care (01) ==
PROVIDERS: PCP Nurse Practitioner Family; Visit Provider Urology
PROC: (CPT 54860; principal; 2023-10-18 14:00)
DX: N45.1 Epididymitis (principal); N50.3 Cyst of epididymis; N50.89 Other specified disorders of the male genital organs; N50.819 Testicular pain, unspecified; R31.29 Other microscopic hematuria; I10 Essential (primary) hypertension; E78.00 Pure hypercholesterolemia, unspecified; Z79.899 Other long term (current) drug therapy; Z88.5 Allergy status to narcotic agent; Z88.6 Allergy status to analgesic agent; Z88.8 Allergy status to other drugs, medicaments and biological substances; Z88.4 Allergy status to anesthetic agent
CPT/HCPCS: 54860; 88304; J0690; J2704; J2795; J3010

== ENCOUNTER → 2023-10-18 12:05 | Outpatient (BNV) | payer MEDICARE, MEDICAID, SELFPAY | PROVIDERS: PCP Nurse Practitioner Family; Visit Provider Urology | DX: N50.3 Cyst of epididymis (principal) | CPT/HCPCS: 54860 ==

== ENCOUNTER 2023-12-01 11:05 | Outpatient (AMB) | payer MEDICARE, MEDICAID, SELFPAY ==
--- NOTE | 2023-12-01 11:41 | A.OFFVIS_ITS ---
Intake Visit Reasons: Partial Epididymectomy- follow up Intake Note: Patient is present for Post Op Partial Epididymectomy Allergies tamsulosin [Flomax] Allergy (Intermediate, Verified 10/18/23 13:02) Irritated throat/sinuses oxycodone [From PERCOCET] Allergy (Mild, Verified 10/18/23 13:02) ITCHY aspirin [ASA] Adverse Reaction (Intermediate, Verified 10/18/23 13:02) GI UPSET, upset stomach pollen extracts [POLLEN] Adverse Reaction (Intermediate, Verified 10/18/23 13:0 2) SINUS PROBLEMS fluticasone [From Flonase] Adverse Reaction (Unknown, Verified 10/18/23 13:02) Unknown HPI Comments Details: Rory is a pleasant male. He is a patient of Dr. Pires. He is seen for the following urologic conditions - lower urinary tract symptoms - microscopic hematuria - epididymal tenderness Follow-up left partial epididymectomy - Epididymis with mild fibrosis and chronic inflammation, consistent with chronic epididymitis Resolution of pain Follow-up 12 months PVR Microscopic hematuria Cysto and imaging evaluation completed 2021 Lower urinary tract symptoms Underwent prostate procedure in office February 2017 Continued benefit PSA - 10/23 0.49, 10/23 0.56 PFSH Medical History (Updated 08/18/23 @ 14:09 by Carlos Gil MD) Sleep walking Degenerative disc disease, lumbar Elevated cholesterol Lumbar herniated disc Hypertension Surgical History (Updated 10/14/23 @ 13:54 by Mary Jo Carrasco RN) History of surgery on lower extremity Hx of removal of cyst Hx of umbilical hernia repair Hx of cystoscopy History of surgery H/O prostatectomy H/O left knee surgery Hx of hernia repair H/O colonoscopy Family History Father No problems noted. Mother No problems noted. Brother Substance use disorder Sister Substance use disorder Paternal Uncle Mental health disorder Paternal Aunt Mental health disorder Social History Alcohol intake: current Alcohol intake frequency: does not drink Comment: medicated in pacu Patient Tobacco Use Status: Never used Tobacco Review of Systems Const Denies chills and Denies fever(s) Card Reports no additional complaints and Denies syncope Resp Denies cough GI Denies abdominal pain and Denies heartburn Reports as per HPI and Denies change in libido Neuro Denies syncope Psych Denies change in libido Endo Denies change in libido Physical Exam Const General: cooperative, healthy appearing, comfortable and no acute distress Orientation/consciousness: patient oriented x3 HEENT Face and sinus: Yes normal facial exam Mouth: moist mucous membranes Neck Neck: Yes normal visual inspection, Yes full ROM and Yes trachea midline Chest Chest palpation & inspection: normal inspection of the chest Resp Effort & Inspection: normal respiratory effort, able to speak in complete sentences and no respiratory distress GI Inspection: Yes normal to inspection Back/Spine/Pelvis Cervical Spine: normal cervical lordosis Thoracic/Lumbar Spine: thoracic and lumbar spine normal to inspection Skin General skin exam: no rashes or lesions noted Neuro General: patient oriented x3, gait normal, tone normal and moves all extremities Extrem General: Yes normal to inspection and Yes capillary refill normal Assessment & Plan Assessment & Plan (1) Epididymal pain: Code(s): N50.819 - Testicular pain, unspecified Category: Medical (2) Lower urinary tract symptoms due to benign prostatic hyperplasia: Code(s): N40.1 - Benign prostatic hyperplasia with lower urinary tract symptoms Category: Medical Plan Twelve month follow-up Patient Instructions: Imaging studies, laboratory and physical exam results were discussed and reviewed in detail. No major barriers to patient understanding were identified. An opportunity to ask questions regarding the treatment plan was provided. All questions were answered. The patient expressed understanding and agreement with the above treatment plan. The patient is aware they should contact our office by phone for worsening of their current condition or the appearance of new urologic symptoms. Compliance is encouraged with any medications and followup testing that is ordered. It is a privilege to participate in the urologic care of your patient. If you have any questions or concerns regarding treatment for the above conditions, or other urologic issues, please do not hesitate to contact me. The office telephone contact is [phone]. This note is constructed using voice recognition software. While every effort has been made to ensure accuracy apprenticeship consultant errors may have been included. Yours sincerely, Dr Carlos Gil MD, [facility] Urology Providers of Expert, Compassionate Care for the Genitourinary System Coding Level of Care Code Est Pt Level 3 (58736) Diagnoses Epididymal pain N50.819 Lower urinary tract symptoms due to benign prostatic hyperplasia N40.1
== END 2023-12-01 12:26 | disposition home or self-care (01) ==
PROVIDERS: PCP Nurse Practitioner Family; Visit Provider Urology
DX: N50.819 Testicular pain, unspecified (principal); N40.1 Benign prostatic hyperplasia with lower urinary tract symptoms
CPT/HCPCS: 99024

== ENCOUNTER → 2023-12-01 11:05 | Outpatient (BNVA) | payer MEDICARE, MEDICAID, SELFPAY | PROVIDERS: PCP Nurse Practitioner Family; Visit Provider Urology | DX: N40.1 Benign prostatic hyperplasia with lower urinary tract symptoms (principal); N50.819 Testicular pain, unspecified | CPT/HCPCS: 99212 ==

== ENCOUNTER 2024-07-06 13:35 | Outpatient (AMB) | payer MEDICARE, MEDICAID, SELFPAY ==
[2024-07-06 13:37] VITALS: BP 128/76; PULSE 86; O2SAT 96; BMI 39.0
--- NOTE | 2024-07-06 13:37 | AM.OFFVISMDC ---
Intake Vital Signs 07/06/24 13:37 Height 5 ft 11 in Weight 280 lb BMI 39.0 BP 128/76 Blood Pressure Location Lt brachial Position Sitting Pulse 86 Pulse Source Pulse Oximeter Pulse Oximetry (%) 96 Oxygen Delivery Method Room Air Intake Visit Reasons: VIV G0439 Pararescue Craftsman Required: No Accompanied by: Self / Same As Patient Allergies tamsulosin [Flomax] Allergy (Intermediate, Verified 07/06/24 13:37) Irritated throat/sinuses oxycodone [From PERCOCET] Allergy (Mild, Verified 07/06/24 13:37) ITCHY aspirin [ASA] Adverse Reaction (Intermediate, Verified 07/06/24 13:37) GI UPSET, upset stomach pollen extracts [POLLEN] Adverse Reaction (Intermediate, Verified 07/06/24 13:37) SINUS PROBLEMS fluticasone [From Flonase] Adverse Reaction (Unknown, Verified 07/06/24 13:37) Unknown Do you need a note to return to daycare/school/sports/work: No HPI [facility] G0439 HPI Details AWV: CCC and PPP in scan pile. HPI Comments History of Present Illness Details HTN: stable currently. Denies any ALICIA, blurred vision, CP, SOB, or dizziness. NOTE: New onset Afib. pt is asymptomatic, will start echo, eliquis, BB, order a holter, and refer to cardiology. pt knows to watch his BP and make sure it does not drop below 110 systolically. Will have him watch for orthostatic changes PFSH Medical History Sleep walking Degenerative disc disease, lumbar Elevated cholesterol Lumbar herniated disc Hypertension Surgical History History of surgery on lower extremity Hx of removal of cyst Hx of umbilical hernia repair Hx of cystoscopy History of surgery H/O prostatectomy H/O left knee surgery Hx of hernia repair H/O colonoscopy Family History Father No problems noted. Mother No problems noted. Brother Substance use disorder Sister Substance use disorder Paternal Uncle Mental health disorder Paternal Aunt Mental health disorder Social History Alcohol intake: current Alcohol intake frequency: does not drink Comment: medicated in pacu Patient Tobacco Use Status: Never used Tobacco Questionnaire Medicare Wellness Checkup [age] What gender do you identify with?: male During the past 4 weeks, how much have you been bothered by emotional problems such as feeling anxious, depressed, irritable, sad or downhearted, and blue?: slightly During the past 4 weeks, has your physical & emotional health limited your social activities with family, friends, neighbors, or groups?: slightly During the past 4 weeks, how much bodily pain have you generally had?: mild pain During the past 4 weeks, was someone available to help you if you needed & wanted help?: no, not at all During the past 4 weeks, what was the hardest physical activity you could do for at least 2 minutes?: moderate Can you get to places out of walking distance without help? (For eg., can you travel alone on buses, taxis or drive your car?): Yes Can you go shopping for groceries or clothes without someone's help?: Yes Can you prepare your own meals?: Yes Can you do your housework without help?: Yes Because of any health problems, do you need the help of another person with your personal care needs such as eating, bathing, dressing or getting around the house?: No Can you handle your own money without help?: Yes During the past 4 weeks how have things been going for you?: good & bad parts about equal Are you having difficulties driving your car?: no Do you always fasten your seat belt when you are in a car?: yes, usually During past 4 weeks, have you been bothered by the following: never: Sexual problems?, Trouble eating well? and Problems using the telephone?, seldom: Falling or dizzy when standing up and Teeth or denture problems? and sometimes: Tiredness or fatigue? Have you fallen 2 or more times in the past year?: No Are you afraid of falling?: No Are you a smoker?: no During the past 4 weeks, how many drinks of wine, beer, or other alcoholic beverages did you have?: no alcohol at all Do you exercise for about 20 minutes 3 or more times a week?: yes, some of the time Have you been given information to help with the following?: yes: Keeping track of your medications? and no: Hazards in your house that might hurt you? How often do you have trouble taking medicines the way you have been told to take them?: I always take medicine as prescribed How confident are you that you can control & manage most of your health problems?: somewhat confident What is your race?: White Mini Mental State Exam (MMSE) Orientation What is the (year) (season) (date) (day) (month)?: year, season, date, day and month Where are we (state) (county) (town or city) (hospital) (floor)?: state, county, town or city, hospital/clinic and floor Registration Name of 3 unrelated objects clearly and slowly, then ask patient to repeat all 3 of them. (1st repeat determines score. Make sure they can repeat all three): object 1, object 2 and object 3 Recall Ask patient to repeat the 3 items from question #3.: object 1, object 2 and object 3 Language Show patient a wristwatch & ask what it is. Repeat for pencil.: watch and pencil Ask the patient to repeat the phrase 'No ifs, ands, or buts' after you.: correct Ask the patient to 'take a piece of paper with their right hand' 'fold paper in half' 'place paper on floor': take paper in right hand, fold paper in half and place paper on floor Print the sentence 'CLOSE YOUR EYES' on a piece. If patient actually closes eyes then score.: followed written direction Give patient a blank piece of paper & ask to write a sentence. Score if it contains a noun & verb.: sentence contains subject and verb Ask patient to copy figure of intersecting pentagons exactly. Score if all 10 angles & 2 intersects are included.: all 10 angles present & 2 are intersected Score Score: 25 Activity of Daily Living Bathing - sponge bath, tub bath or shower: receives no assistance (gets in/out by self, if usual bathing means Dressing - getting clothes from closets & drawers, including inner/outer garments & fasteners.: gets clothes & gets completely dressed without help Toileting - going to the 'toilet room' for urine/bowel elimination & cleaning self/arranging clothes: goes to toilet room, cleans self, arranges clothes without help Transfer: moves in & out of bed and chair without help (may use support object) Continence: controls urination/bowel movements completely by self Feeding: feeds self without help Total Score: 0 Information obtained from: patient Using telephone: independent Traveling: independent Shopping: independent Preparing meals: independent Housework: independent Taking medicine: independent Managing money: independent PHQ-9 Over the last 2 weeks, how often have you been bothered by any of the following problems? 1. Little interest or pleasure in doing things: more than half the days 2. Feeling down, depressed, or hopeless: several days 3. Trouble falling or staying asleep, or sleeping too much: several days 4. Feeling tired or having little energy: more than half the days 5. Poor appetite or overeating: more than half the days 6. Feeling bad about yourself - or that you are a failure or have let yourself or your family down: several days 7. Trouble concentrating on things, such as reading the newspaper or watching television: several days 8. Moving or speaking so slowly that other people could have noticed. Or the opposite - being so fidgety or restless that you have been moving around a lot more than usual: several days 9. Thoughts that you would be better off or of hurting yourself in some way: not at all Total score: 11 Depression Screening Interpretation: Positive Depression Screening Done: Yes 41669 - PHQ-9 Billing: Yes Source: Developed by Drs. Jet Rodas, Katelin Sosa, Mark Aguilar and colleagues, with an educational todd from [employer]. ANTONI-7 AMB Questionnaire ANTONI-7 Date ANTONI - 7 assessed: 07/06/24 Feeling nervous, anxious, or on edge: 2 = More than half the days Not being able to stop or control worryin = Several days Worrying too much about different things: 2 = More than half the days Trouble relaxin = Several days Being so restless that it is hard to sit still: 0 = Not at all Becoming easily annoyed or irritable: 1 = Several days Feeling afraid as if something awful might happen: 0 = Not at all Total ANTONI-7 score (0-4 normal; 5-9 mild; 10-14 moderate; 15-21 severe): 7 Source: Developed by Drs. Jet Rodas, Katelin Sosa, Mark Aguilar and colleagues, with an educational todd from [employer]. ANTONI-7 Assessment Billing ANTONI-7 Assessment Tool: ANTONI-7 Assessment 62299 Physical Exam Vital Signs: Last Vital Signs Pulse 86 07/06/24 13:37 BP 128/76 07/06/24 13:37 Pulse Ox 96 07/06/24 13:37 Oxygen Delivery Method Room Air 07/06/24 13:37 BMI result Body Mass Index 39.0 Const General: cooperative, healthy appearing, comfortable and no acute distress Nutritional Appearance: obese Resp Other: clear bilat Cardio Rhythm: abnormal rhythm irregularly irregular Extrem Other: trace to BLE (edema) Assessment & Plan Assessment & Plan (1) Screening for colon cancer: Code(s): Z12.11 - Encounter for screening for malignant neoplasm of colon (2) Hypertension: Code(s): I10 - Essential (primary) hypertension (3) Encounter for annual wellness visit (AWV) in Medicare patient: Code(s): Z00.00 - Encounter for general adult medical examination without abnormal findings (4) New onset a-fib: Code(s): I48.91 - Unspecified atrial fibrillation Plan . Orders: Orders TSH reflex Free T4 Today I10 - Essential (primary) hypertension UA CC w/rflx Micro + Cult Today I10 - Essential (primary) hypertension Lipid Panel Today I10 - Essential (primary) hypertension Complete Blood Count Auto Diff Today I10 - Essential (primary) hypertension Comprehensive [place]. Panel Fast Today I10 - Essential (primary) hypertension CA echo transthoracic complete Today I48.91 - Unspecified atrial fibrillation ECG 5 day holter monitor Today I48.91 - Unspecified atrial fibrillation Referrals Gastroenterology Referral Z12.11 - Encounter for screening for malignant neoplasm of colon Cardiology Referral I48.91 - Unspecified atrial fibrillation Medications: New metoprolol succinate ER 25 mg PO DAILY 30 days 30 tabs 2RF Quality Reporting (2019) Depression/Bipolar (159/160/161/177) PHQ-9: Total score: 11 Coding Level of Care Code Medicare Subsequent (G0439) Est Pt Level 4 (48634) Diagnoses Screening for colon cancer Z12.11 Hypertension I10 Encounter for annual wellness visit (AWV) in Medicare patient Z00.00 New onset a-fib I48.91 Additional Codes ANTONI-7 Assessment Billing - ANTONI-7 Assessment Tool: ANTONI-7 Assessment 52907 ([id number]) PHQ-9 - 66602 - PHQ-9 Billing: Yes ([id number]) Advance Care Planning Forms completed: Health Care Proxy (form given to pt to fill out), MOLST and Living will (encouraged to fill out)
--- OUTSIDE RECORDS SUMMARY | 2024-07-06 14:53 | XMS_ITS | Clinical Summary ---
Author Organization [facility] Address [place] [facility] [address] Care Team Providers Care Webbing Seamer Pound Net Name Role Phone Unavailable Primary Care Provider Unavailabl e Source Comments PLEASE NOTE, if this patient is a minor, it may be UNLAWFUL to discuss sensitive information that is contained in these records (such as FAMILY PLANNING, MENTAL HEALTH or SUBSTANCE ABUSE) with the minor patient's parent or other person without the patient's specific authorization.[facility] Allergies Active Allergy Reactions Criticality Noted Date Comments Aspirin 11/04/2022 Oxycodone-Acetaminophen 11/04/2022 Medications atorvastatin (LIPITOR) 20 mg tablet Take 20 mg by mouth once daily 10/30/2021 Active lisinopriL 5 mg tablet Take 5 mg by mouth once daily 10/30/2021 Active Active Problems No known active problems Encounters Date Type Department Care Team Description 05/17/2024 1:00 PM EST Office Visit [facility] [address] [place] [phone] Cece Alcantar RHD Encounter for dental examination (Primary Dx) from Last 3 Months Immunizations Immunization Administration Dates Next Due Moderna COVID-19 Vaccine, re d cap blue label, 12+ Primary Series 07/30/2020,07/03/2020 Social History Tobacco Use Types Packs/Day Years Used Date Smoking Tobacco: Never Smokeless Tobacco: Never Tobacco Cessation:Counseling Given: Not Answered Social Connections Answer Date Recorded Connectedness 0 12/24/2023 Financial Resource Strain Answer Date R ecorded Financial Resource Strain 0 2019 Stress Answer Date Recorded Stress 0 12/04/2019 Physical Activity Answer Date Recorded Physical Activity 0 12/04/2019 Food Insecurity Answer Date Recorded Food 0 12/30/2023 Transportation Needs Answer Date Record ed Transportation 0 12/04/2019 Housing Stability Answer Date Recorded Housing 0 12/04/2019 Safety and Environment Answer Date Deepak rded Safety 0 12/04/2019 Utilities Answer Date Recorded Utilities 0 12/04/2019 Employment Answer Date Recorded Stress 0 12/24/2023 Sex and Gender Information Value Date Recorded Sex Assigned at Not on file Legal Sex Male 12:31 PM PDT Gender Identity Not on file Sexual Orientation Not on file Last Filed Vital Signs Vital Sign Reading Time Taken Comments Blood Pressure 132/95 05/17/2024 12:58 PM EST Pulse 85 05/17/2024 12:58 PM EST Temperature - - Respiratory Rate - - Oxygen Saturation - - Inhaled Oxygen Concentration - - Weight - - Height - - Body Mass Index - - Plan of Treatment Upcoming Encounters Date Type Department Care Team (Late st Contact Info) Description 11/14/2024 1:00 PM EDT Office Visit [address] [address] Cece Alcantar, PARI [address] [place] [address] Health Maintenance Due Date Last Done Comments Hepatitis C Screening 1950 Lipid Screening 1950 Medicare Annual Wellness Visit 1970 Imm-DTaP/Tdap/Td (1 - Tdap) 08/26/1971 CT Colonography 1997 Colonoscopy 1997 Colorectal Cancer Screening 1997 FIT/gFOBT 1997 Fecal DNA 1997 Flexible Sigmoidoscopy 1997 Imm-Pneumococcal 65+ (1 of 1 - PCV) 2002 Imm-Zoster, Recombinant (1 of 2) 2002 Falls Prevention 2017 [id number] ( season) 12/05/202307/30/2 021, 07/03/2020 Imm-Influenza (#1) 2023 Alcohol and Drug Screen 04/05/2024 Depression Annual Screen 04/05/2024 Hypertension Screening (#1) 05/17/2025 Tobacco Screening 05/17/2025 05/17/2024 Dental BW 05/19/2025 05/17/2024, 11/03, 05/11/2023, Additional history exists Dental Examination 05/19/2025 05/17/2024, 0 11/15/2023, 05/11/2023, Additional history exists Dental Perio Charting 05/19/2025 05/17/2024 , 11/15/2023, 05/11/2023, Additional history exists Dental Prophy 05/19/2025 05/17/2024, 11/03, 05/11/2023, Additional history exists Dental FMX/Pano 11/07/2027 11/04/2022 Procedures Procedure Name Priority Date/Time Associated Diagnosis Comments PERIODIC ORAL EVALUATION ESTABLISHED PATIENT Routine 05/17/2024 1:00 PM EST Encounter for dental examination DENTAL CASE MANAGEMENT - MOTIVATIONAL INTV Routine 05/17/2024 1:00 PM EST Encounter for dental examination PROPHYLAXIS - ADULT Routine 05/17/2024 1 :00 PM EST Encounter for dental examination COMP PERIODONTAL EVALUATION - NEW/EST PATIENT Routine 05/17/2024 1:00 PM EST Encounter for dental examination CARIES RISK ASSESSMENT & DOC FINDING HIGH RISK Routine 05/17/2024 1:00 PM EST Encounter for dental examination NUTRITIONAL COUNSELING CONTROL OF DENTAL DISEASE Routine 05/17/2024 1:00 PM EST Encounter for dental examination ORAL HYGIENE INSTRUCTIONS Routine 05/17/2024 1:00 PM EST Encounter for dental examination BITEWINGS - FOUR RADIOGRAPHIC IMAGES Routine 05/17/2024 1:00 PM EST Encounter for dental examination ORAL CANCER SCREENING Routine 05/17/2024 1:00 PM EST Encounter for dental examination CASE PRESENTATION SUBS DTL & EXTENSIVE TX PLN Routine 05/17/2024 1:00 PM EST Encounter for dental examination PANORAMIC RADIOGRAPHIC IMAGE Routine 11/04/2022 1:00 PM EDT Caries of enamel (incipient) from Last 3 Months or Most Recently Relevant to Health Maintenance Insurance HEALTH SAFETY [place]
== END 2024-07-06 15:55 | disposition home or self-care (01) ==
LOC: HO.HMCC 13:36
PROVIDERS: PCP Nurse Practitioner Family; Visit Provider Nurse Practitioner Family
DX: Z00.00 Encounter for general adult medical examination without abnormal findings (principal); I10 Essential (primary) hypertension; I48.91 Unspecified atrial fibrillation; Z12.11 Encounter for screening for malignant neoplasm of colon

== ENCOUNTER → 2024-07-06 13:35 | Outpatient (BNVA) | payer MEDICARE, MEDICAID, SELFPAY | PROVIDERS: PCP Nurse Practitioner Family; Visit Provider Nurse Practitioner Family | DX: Z00.00 Encounter for general adult medical examination without abnormal findings (principal); I10 Essential (primary) hypertension; I48.91 Unspecified atrial fibrillation | CPT/HCPCS: 96127; 99212 ==

== ENCOUNTER → 2024-07-13 14:43 | Outpatient (BNVA) | payer MEDICARE, MEDICAID, SELFPAY | PROVIDERS: PCP Nurse Practitioner Family ==

== ENCOUNTER → 2024-08-02 09:52 | Outpatient (REF) | payer MEDICARE, MEDICAID, SELFPAY ==
--- NOTE | 2024-08-02 09:58 | CA_ITS ---
Transthoracic Echocardiogram Patient (Last, First, Middle): Rory Pena, Gender: Male Date of : 1950 Age: 73 Procedure Date: 08/02/2024 Procedure Type: Transthoracic Echocardiogram Location: OP Height: 180.34 cm Weight: 131.54 kg BSA: 2.47 m2 Heart Rate: bpm BP: 130 / 78 mmHg Door And Arrival Attendant: TO Referring MD: Gary Okeefe [facility] Llama Farmer: Alexis Martínez MD Symptoms: I48.91 - Unspecified atrial fibrillation Study Quality: Fair/Contrast ECG Rhythm: Sinus Conclusions: - 1. Normal LV ejection fraction of 55-60% with impaired relaxation filling pattern 2. Cardiac valvular Dopplers within normal limits 3. Normal RV systolic pressure 4. Mildly dilated ascending aorta 3.9 cm 5. No gross pericardial effusion Findings Procedure Information Contrast agent, definity, is being given per protocol without apparent complications. Left Ventricle Normal left ventricular size, thickness, and systolic function. The visually estimated ejection fraction is between 55-60%. Spectral Doppler is indicative of an impaired relaxation filling pattern. E/E prime ratio is between 8 and 15 consistent with indeterminate filling pressures. Right Ventricle Normal right ventricular cavity size and systolic function. Atria The left atrium is likely dilated. Interatrial shunt cannot be excluded. The right atrium is normal in size. Aortic Valve The aortic valve structure and function is likely normal. There is no aortic valve stenosis. There is no aortic valve regurgitation. Mitral Valve Normal mitral valve structure and function. There is trace mitral valve regurgitation. There is no mitral valve stenosis. Pulmonic Valve The pulmonic valve was not well visualized. Tricuspid Valve Likely normal tricuspid valve structure and function. There is trace tricuspid valve regurgitation. The right ventricular systolic pressure is normal. The right ventricular systolic pressure is 21 mmHg. Normal right atrial pressure. There is no evidence of pulmonary hypertension. Great Vessels The aorta was not well visualized. The pulmonary artery was not well visualized. There is mild dilatation of the ascending aorta measuring 3.90 cm. Venous The inferior vena cava is normal in size and collapses greater than 50% with inspiration. Pericardium/Pleural There is no evidence of pericardial effusion. Measurements 2D Linear Measurements IVSd: 1.16 0.6-0.9/0.6-1.0 cm LVIDd: 4.96 3.9-5.3/4.2-5.9 cm LVIDd Index: 2.01 2.4-3.2/2.2-3.1 cm/m2 LVIDs: 3.49 2.0-3.6 cm LVPWd: 0.83 0.7-1.1 cm LA Diam: 3.80 2.7-3.8/3.0-4.0 cm LAIDs Index: 1.54 1.5-2.3 cm/m2 LV Mass: 222.83 67-162/88-224 g LV Mass Index: 90.21 43-95/49-115 g/m2 LVOT Diam: 2.20 3.0+(-)1.3 cm Mitral Valve MV Pk E: 0.44 MV PK A: 0.64 MV Decel Time: 145.00 E/A: 0.70 E'Lateral: 6.96 E'Medial: 6.31 E/E' Med: 7.00 E/E' Lat: 6.30 PHT: 42.00 MVA PHT: 5.24 Decel [place]: 3.05 Aortic Valve AoV Pk Yrn: 1.26 AoV Mn Yrn: 0.88 AoV VTI: 0.22 AoV Pk Grad: 6.00 Aov Mn Grad: 3.00 KIANNA Cont.VTI: 3.08 LVOT LVOT Pk Yrn: 0.97 LVOT Mn Yrn: 0.66 LVOT VTI: 0.18 LVOT Pk Grad: 4.00 LVOT Mn Grad: 2.00 LVOT Diam: 2.20 LVOT Area: 3.80 Diastolic Function MV Pk E: 0.44 MV Pk A: 0.64 E/A: 0.70 E'Medial: 6.31 E/E' Med: 7.00 E' Laterial: 6.96 E/E' Lat: 6.30 Right Ventricle TAPSE (mm): 25.80 TVS' Yrn: 10.70 Tricuspid Valve TR Pk Yrn: 2.14 TR Pk Grad: 18.00 RA Press: 3.00 RVSP: 21.00 Great Vessels Aorta Sinus of Valsalva: 3.66 2.0-3.5 cm Ao Asc: 3.90 2.1-3.4 cm Updated in Other Vendor System with Status of Final Alexis Martínez MD electronically signed on 08/02/2024 3:50:08 PM with status of Final
--- OUTSIDE RECORDS SUMMARY | 2024-08-02 10:48 | XMS_ITS | Clinical Summary ---
Author Organization [facility] Address PO [facility] [place] [address] Care Team Providers Care Envelope Fold Operator Name Role Phone Unavailable Primary Care Provider [...] Description 05/17/2024 1:00 PM EST Office Visit [facility] [address] [place] [phone] Cece Alcantar RHD Encounter for dental examination [...] Description 11/14/2024 1:00 PM EDT Office Visit [address] [address] Cece Alcantar, PARI [address] [place] [address] Health Maintenance Due Date Last Done Comments Hepatitis C Screening 1950 Lipid Screening 1950 Medicare Annual Wellness Visit 1970 Imm-DTaP/Tdap/Td (1 - Tdap) 08/26/1971 CT Colonography 1997 Colonoscopy 1997 Colorectal Cancer Screening 1997 FIT/gFOBT 1997 Fecal DNA 1997 Flexible Sigmoidoscopy 1997 Imm-Pneumococcal 65+ (1 of 1 - PCV) 2002 Imm-Zoster, Recombinant (1 of 2) 2002 Falls Prevention 2017 [id number] ( season) 12/05/202307/30/2 021, 07/03/2020 Imm-Influenza (#1) [...] Insurance HEALTH SAFETY [place] DENTAL [place]
== END ==
LOC: HO.CARD 09:52
PROVIDERS: PCP Nurse Practitioner Family; Visit Provider Nurse Practitioner Family
DX: I48.91 Unspecified atrial fibrillation (principal)
CPT/HCPCS: 93242; 93306; Q9957

== ENCOUNTER → 2024-08-02 09:58 | Outpatient (BNV) | payer MEDICARE, MEDICAID, SELFPAY | PROVIDERS: PCP Nurse Practitioner Family; Visit Provider Internal Medicine Cardiovascular Disease | DX: I34.0 Nonrheumatic mitral (valve) insufficiency (principal); I36.1 Nonrheumatic tricuspid (valve) insufficiency | CPT/HCPCS: 93306 ==

== ENCOUNTER 2024-08-17 11:24 | Outpatient (REF) | payer MEDICARE, MEDICAID, SELFPAY ==
[2024-08-17 11:36] LABS: MANUAL DIFF FLAG NO
[2024-08-17 11:54] LABS: Basophils Absolute Auto 0.1 X10*3/uL (0.0-0.2); Basophils Percent Auto 0.9 % (0-2); Eosinophils Absolute Auto 0.1 X10*3/uL (0.0-0.4); Hematocrit 43.5 % (42.0-52.0); Hemoglobin 14.9 g/dl (14.0-18.0); Imm Gran Abs Auto 0.02 X10*3/uL (0.00-0.03); Imm Gran Pct Auto 0.4 % (0.0-0.4); Lymphocytes Absolute Auto 1.9 X10*3/uL (1.2-4.9); Lymphocytes Percent Auto 32.9 % (20-40); Mean Corpuscular HGB Conc 34.3 g/dl (31.0-36.0); Mean Corpuscular Hemoglobin 30.3 pg (27.0-33.0); Mean Corpuscular Volume 88.6 fL (80.0-98.0); Mean Platelet Volume 9.2 fL (9.4-12.4); Monocytes Absolute Auto 0.5 X10*3/uL (0.1-1.2); Monocytes Percent Auto 8.5 % (2-11); Neutrophils Absolute Auto 3.1 x10*3/uL (2.0-8.3); Neutrophils Percent Auto 55.3 % (45-73); Platelet Count 216 X10*3/uL (160-400); Red Blood Count 4.91 X10*6/uL (4.60-5.80); Red Cell Distribution Width 12.6 % (11.0-16.0); White Blood Count 5.6 X10*3/uL (4.8-10.8)
[2024-08-17 12:06] LABS: Appearance Urine Clear; Color Urine Yellow; Glucose Urine UA Negative (Negative); Leukocyte Esterase Urine Negative (Negative); Nitrite Urine Negative (Negative); PH 5.5 (5.0-9.0); UMIC TRIGGER UACC YES; Urine Blood Moderate (2+) (Negative); Urine Ketones Negative (Negative); Urine Protein Trace mg/dL (Neg-Trace)
[2024-08-17 12:15] LABS: Bacteria Urine None Seen (None Seen); Hyaline Casts Urine 0-2 /LPF (0-2); RBC Urine 0-2 /HPF (0-2); Squamous Epithelial Cell Urine 0-2 /HPF (0-2); WBC Urine 0-5 /HPF (0-5)
--- OUTSIDE RECORDS SUMMARY | 2024-08-17 12:32 | XMS_ITS | Clinical Summary ---
Author Organization [facility] Address PO [facility] [place] [address] Care Team Providers Care Property Management Supervisor Name Role Phone Unavailable Primary Care Provider [...] Active Active Problems No known active problems Immunizations Immunization Administration Dates Next Due Moderna [...] Description 11/14/2024 1:00 PM EDT Office Visit [facility] [address] [place] [address] Cece Alcantar RHD [address] [place] [address] Health Maintenance Due Date Last Done Comments Hepatitis C Screening 1950 Lipid Screening 1950 Medicare Annual Wellness Visit 1970 Imm-DTaP/Tdap/Td (1 - Tdap) 08/26/1971 CT Colonography 1997 Colonoscopy 1997 Colorectal Cancer Screening 1997 FIT/gFOBT 1997 Fecal DNA 1997 Flexible Sigmoidoscopy 1997 Imm-Pneumococcal 65+ (1 of 1 - PCV) 2002 Imm-Zoster, Recombinant (1 of 2) 2002 Falls Prevention 2017 [id number] ( season) 12/05/202307/30/2 021, 07/03/2020 Imm-Influenza (#1) 2023 Alcohol and Drug Screen 04/05/2024 Depression Annual Screen 04/05/2024 Hypertension Screening (#1) 05/17/2025 Tobacco Screening 05/17/2025 05/17/2024 Dental BW 05/19/2025 05/17/2024, 0805/2023, 05/11/2023, Additional history exists Dental Examination 05/19/2025 05/17/2024, 0 11/15/2023, 05/11/2023, Additional history exists Dental Perio Charting 05/19/2025 05/17/2024 , 11/15/2023, 05/11/2023, Additional history exists Dental Prophy 05/19/2025 05/17/2024, 11/03, 05/11/2023, Additional history exists Dental FMX/Pano 11/07/2027 11/04/2022 Procedures Procedure Name Priority Date/Time Associated Diagnosis Comments COMP PERIODONTAL EVALUATION - NEW/EST PATIENT Routine 05/17/2024 1:00 PM EST Encounter for dental examination BITEWINGS - FOUR RADIOGRAPHIC IMAGES Routine 05/17/2024 1:00 PM EST Encounter for dental examination PROPHYLAXIS - ADULT Routine 05/17/2024 1 :00 PM EST Encounter for dental examination PERIODIC ORAL EVALUATION ESTABLISHED PATIENT Routine 05/17/2024 1:00 PM EST Encounter for dental examination PANORAMIC RADIOGRAPHIC IMAGE Routine 11/04/2022 1:00 PM EDT Caries of enamel (incipient) from Last 3 Months or Most Recently Relevant to Health Maintenance Insurance HEALTH SAFETY [place] DENTAL [place]
[2024-08-17 12:48] LABS: Alanine Aminotransferase 32 U/L (0-40); Albumin Level 4.3 g/dL (3.5-5.0); Alkaline Phosphatase 65 U/L (39-117); Anion Gap 14 (12-20); Aspartate Amino Transferase 26 U/L (5-37); Bilirubin Total 0.9 mg/dL (0.0-1.0); Blood Urea Nitrogen 21 mg/dL (9-16); Calcium 9.4 mg/dL (8.4-10.2); Carbon Dioxide 28 mmol/L (22-29); Chloride 103 mmol/L (96-108); Cholesterol 153 mg/dL (<200); Estimated Glomerular Filt Rate > 60; Glucose Fasting 101 mg/dL (60-99); HDL Cholesterol 29 mg/dL (>40); LDL Cholesterol Calculated 81 mg/dL (<100); Potassium 3.7 mmol/L (3.3-5.1); Sodium 141 mmol/L (135-145); Total Protein 7.2 g/dL (6.5-8.0); Triglycerides 218 mg/dL (<150)
[2024-08-17 12:53] LABS: Prostate Specific Antigen 0.66 ng/mL (<0.05-4.0)
[2024-08-17 12:58] LABS: TSH reflex Free T4 1.75 uIU/mL (0.32-4.0)
== END 2024-08-17 11:25 | disposition home or self-care (01) ==
LOC: HO.LAB 11:24
PROVIDERS: Urology; PCP Nurse Practitioner Family; Visit Provider Nurse Practitioner Family
DX: I10 Essential (primary) hypertension (principal); Z12.5 Encounter for screening for malignant neoplasm of prostate
CPT/HCPCS: 36415; 80053; 80061; 81001; 81003; 84153; 84443; 85025

== ENCOUNTER 2024-09-01 13:46 | Outpatient (REF) | payer MEDICARE, MEDICAID, SELFPAY ==
--- OUTSIDE RECORDS SUMMARY | 2024-09-01 13:56 | XMS_ITS | Clinical Summary ---
Author Organization [facility] Address PO [facility] [place] [address] Care Team Providers Care Bullard Machine Operator Name Role Phone Unavailable Primary Care [...] Description 11/14/2024 1:00 PM EDT Office Visit [facility] [address] [place] [address] Cece Alcantar RHD [address] [place] [address] Health Maintenance Due Date Last Done Comments Hepatitis C Screening 1950 Lipid Screening 1950 Medicare Annual Wellness Visit 1970 Imm-DTaP/Tdap/Td (1 - Tdap) 08/26/1971 CT Colonography 1997 Colonoscopy 1997 Colorectal Cancer Screening 1997 FIT/gFOBT 1997 Fecal DNA 1997 Flexible Sigmoidoscopy 1997 Imm-Pneumococcal 65+ (1 of 1 - PCV) 2002 Imm-Zoster, Recombinant (1 of 2) 2002 Falls Prevention 2017 [id number] ( season) 12/05/202307/30/2 021, 07/03/2020 Imm-Influenza (#1) [...]
[2024-09-01 17:07] LABS: Alanine Aminotransferase 34 U/L (0-40); Albumin Level 4.5 g/dL (3.5-5.0); Alkaline Phosphatase 60 U/L (39-117); Anion Gap 14 (12-20); Aspartate Amino Transferase 28 U/L (5-37); Bilirubin Total 0.6 mg/dL (0.0-1.0); Blood Urea Nitrogen 29 mg/dL (9-16); Calcium 9.5 mg/dL (8.4-10.2); Carbon Dioxide 27 mmol/L (22-29); Chloride 106 mmol/L (96-108); Estimated Glomerular Filt Rate 58; Glucose Random 94 mg/dL (60-115); Potassium 3.9 mmol/L (3.3-5.1); Sodium 143 mmol/L (135-145); Total Protein 7.2 g/dL (6.5-8.0)
== END 2024-09-01 13:47 | disposition home or self-care (01) ==
LOC: HO.HMGCLDS 13:46
PROVIDERS: PCP Nurse Practitioner Family; Visit Provider Nurse Practitioner Family
DX: R31.29 Other microscopic hematuria (principal)
CPT/HCPCS: 36415; 80053

== ENCOUNTER → 2024-09-25 13:43 | Outpatient (REF) | payer MEDICARE, MEDICAID, SELFPAY ==
--- OUTSIDE RECORDS SUMMARY | 2024-09-25 15:11 | XMS_ITS | Clinical Summary ---
Author Organization [facility] Address [address] [facility] [place] [address] Care Team Providers Care Kennel Hand Name Role Phone Unavailable Primary Care Provider [...] Description 11/14/2024 1:00 PM EDT Office Visit [facility] [address] [place] [address] Cece Alcantar RHD [address] [place] [address] Health Maintenance Due Date Last Done Comments Hepatitis C Screening 1950 Lipid Screening 1950 Medicare Annual Wellness Visit 1970 Imm-DTaP/Tdap/Td (1 - Tdap) 08/26/1971 CT Colonography 1997 Colonoscopy 1997 Colorectal Cancer Screening 1997 FIT/gFOBT 1997 Fecal DNA 1997 Flexible Sigmoidoscopy 1997 Imm-Pneumococcal 50+ (1 of 1 - PCV) 2002 Imm-Zoster, Recombinant (1 of 2) 2002 Falls Prevention 2017 [id number] ( season) 12/05/202307/30/2 021, 07/03/2020 Alcohol and Drug Screen 04/05/2024 Depression Annual Screen 04/05/2024 Imm-Influenza (Season Ended) 2024 Hypertension Screening (#1) 05/17/2025 Tobacco Screening 05/17/2025 [...] HEALTH SAFET[place] DENT[place]
== END ==
LOC: HO.SL 13:43
PROVIDERS: PCP Nurse Practitioner Family; Visit Provider Nurse Practitioner Family
DX: I48.91 Unspecified atrial fibrillation (principal); G47.10 Hypersomnia, unspecified
CPT/HCPCS: 95806

== ENCOUNTER → 2024-09-25 13:58 | Outpatient (BNV) | payer MEDICARE, MEDICAID, SELFPAY | PROVIDERS: PCP Nurse Practitioner Family; Visit Provider Internal Medicine | DX: G47.33 Obstructive sleep apnea (adult) (pediatric) (principal) | CPT/HCPCS: 95806 ==

== ENCOUNTER 2024-09-27 14:12 | Outpatient (REF) | payer MEDICARE, MEDICAID, SELFPAY ==
--- NOTE | ~2024-09-27 | CT_ITS ---
EXAMINATION: CT ABDOMEN PELVIS WITHOUT THEN WITH IV CONTRAST HISTORY: R31.29 - Other microscopic hematuria COMPARISON: Comparison is made with the prior examination dated 08/30/2013. Correlation is also made with a renal ultrasound dated 01/26/2023. TECHNIQUE: CT scan of the abdomen and pelvis was performed before and after the intravenous administration of 85 mL Omnipaque 350. Postcontrast images were obtained using a split bolus technique. Coronal and sagittal reformatted images were generated and reviewed. Oral contrast material was not administered per department protocol. This CT exam was performed with one or more of the following dose reduction techniques: automated exposure control, adjustment of the mA and/or kV according to patient size, use of iterative reconstruction technique. DLP: 1732 mGy-cm ABDOMEN: LOWER CHEST: The visualized lung bases are clear. There is no pleural effusion. CARDIOVASCULATURE: The heart is normal in size. There is no pericardial effusion. LIVER: The liver is normal in size and contour. No liver mass is identified. The hepatic and portal veins are patent. GALLBLADDER / BILE DUCTS: The gallbladder is unremarkable. There is no intra or extrahepatic biliary ductal dilatation. SPLEEN: The spleen is normal in size. No focal splenic lesion is identified. PANCREAS: The pancreas is unremarkable in appearance. ADRENAL GLANDS: Within normal limits. KIDNEYS/RETROPERITONEUM: There is a punctate nonobstructing calculus in an interpolar calyx of the left kidney. No right renal calculi are identified. There is no hydronephrosis or hydroureter. No ureteral calculi are identified. No renal masses are identified. The intrarenal collecting systems are unremarkable in appearance. The ureters are normal in caliber. No filling defects are identified. LYMPH NODES: No abdominal or pelvic lymphadenopathy. VASCULATURE: The abdominal aorta demonstrates atherosclerotic calcification, but is normal in caliber. MESENTERY/PERITONEUM: No free fluid. No masses. There is no free intraperitoneal gas. STOMACH: The stomach is collapsed, limiting evaluation. SMALL BOWEL: The small bowel is normal in caliber. COLON: There is diverticulosis of the colon without evidence of diverticulitis. APPENDIX: Normal. URINARY BLADDER/PELVIC ORGANS: The urinary bladder is unremarkable. The prostate is normal in size. BONES / SOFT TISSUES: There is degenerative disc disease of the spine. CT/CT abdomen pelvis wo/w IV con IMPRESSION: 1. Punctate nonobstructing left renal calculus. Otherwise unremarkable CT urogram. 2. Colonic diverticulosis without evidence of diverticulitis Electronically signed by: Jet Smith MD 09/27/2024 03:10 PM EDT
[2024-09-27] MEDS: iohexoL 350 MG/ML 100 ML INFUS..BTL IV (14:41)
--- OUTSIDE RECORDS SUMMARY | 2024-09-27 16:56 | XMS_ITS | Clinical Summary ---
Author Organization [facility] Address [address] [facility] [place] [address] Care Team Providers Care Product Marketing Consultant Name Role Phone Unavailable Primary Care Provider [...] Description 11/14/2024 1:00 PM EDT Office Visit [facility] [address] [place] [address] Cece Alcantar RHD [address] [place] [address] Health Maintenance Due Date Last Done Comments Hepatitis C Screening 1950 Lipid Screening 1950 Medicare Annual Wellness Visit 1970 Imm-DTaP/Tdap/Td (1 - Tdap) 08/26/1971 CT Colonography 1997 Colonoscopy 1997 Colorectal Cancer Screening 1997 FIT/gFOBT 1997 Fecal DNA 1997 Flexible Sigmoidoscopy 1997 Imm-Pneumococcal 50+ (1 of 1 - PCV) 2002 Imm-Zoster, Recombinant (1 of 2) 2002 Falls Prevention 2017 Whk-[id number]-52 ( season) 12/05/202307/30/2 021, 07/03/2020 Alcohol and [...] HE[place] SAF[place]
== END 2024-09-27 14:13 | disposition home or self-care (01) ==
LOC: HO.CT 14:12
PROVIDERS: PCP Nurse Practitioner Family; Visit Provider Nurse Practitioner Family
DX: R31.29 Other microscopic hematuria (principal)
CPT/HCPCS: 74178; Q9967

== ENCOUNTER → 2024-09-27 14:14 | Outpatient (BNV) | payer MEDICARE, MEDICAID, SELFPAY | PROVIDERS: PCP Nurse Practitioner Family; Visit Provider Radiology Diagnostic Radiology | DX: N20.0 Calculus of kidney (principal) | CPT/HCPCS: 74178 ==

== ENCOUNTER 2024-10-24 12:44 | Outpatient (AMB) | payer MEDICARE, MEDICAID, SELFPAY ==
[2024-10-24 12:46] VITALS: BP 110/70; PULSE 91; BMI 39.0
--- NOTE | 2024-10-24 12:46 | A.OFFVIS_ITS ---
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 Intake Note: New patient new afib c/o palpitations Fax Machine Repairer Required: No Allergies tamsulosin (Flomax) Allergy (Intermediate, Verified 07/06/24 13:37) Irritated throat/sinuses oxycodone (From PERCOCET) Allergy (Mild, Verified 07/06/24 13:37) ITCHY aspirin (ASA) Adverse Reaction (Intermediate, Verified 07/06/24 13:37) GI UPSET, upset stomach pollen extracts (POLLEN) Adverse Reaction (Intermediate, Verified 07/06/24 13:37) SINUS PROBLEMS fluticasone (From Flonase) Adverse Reaction (Unknown, Verified 07/06/24 13:37) Unknown Medication List - Last Reconciled 10/24/24 by Alexis Martínez MD apixaban (Eliquis) 5 mg PO BID 30 days ascorbic acid (vitamin C) 1 g PO DAILY atorvastatin 20 mg PO DAILY cetirizine (Allergy Relief (cetirizine)) 10 mg PO DAILY PRN cholecalciferol (vitamin D3) 25 mcg PO DAILY diphenhydramine-acetaminophen 25-500 mg (Tylenol PM Extra Strength) 1 tab PO BEDTIME PRN lisinopril-hydrochlorothiazide 10-12.5 mg 1 tab PO DAILY magnesium oxide 400 mg PO DAILY metoprolol succinate ER 25 mg PO DAILY turmeric root extract 500 mg PO DAILY HPI Comments Details: Thank you for referring Rory in cardiology consultation today for management of atrial fibrillation. He is a 74-year-old male with prior history of hypertension and varicose veins, had a follow up visit in July with you. At that time he had a EKGs which performed showed atrial fibrillation and this was new onset for him. Since then he was started on Eliquis and metoprolol therapy. He is very vague about history said prior to this symptoms and diagnose of atrial fibrillation he was feeling rapid heart rate and feeling uneasy and chest tightness. He subsequently had EKG and was started on metoprolol. He has symptoms of palpitation have improved however he continues to have intermittent episodes of chest tightness. These are not clearly related to exertion although these are concerning findings. He says this chest tightness happens independently off rapid heart rate at this point in time. Not clear again exertional in nature. Has family history of PR in his mother as well as his risk factors. He has never had a prior myocardial infarction or ischemic evaluation in the past. He had a Holter monitor after the diagnose of atrial fibrillation which actually had shown normal sinus rhythm he had converted himself back to sinus rhythm. He comes in today in his noted to be in atrial fibrillation again. He has no symptoms of palpitation today but says that since starting Eliquis his symptoms of chest tightness have increased. He is not sure if this is related to acid reflux. He does complain of over the last week or 2 having increased symptoms of fatigue with exercise. In the past used to be avid biker and hiker and had no symptoms except for recently. He denies any lightheadedness, syncope. No orthopnea, PND, leg edema. No bleeding issues or neurologic event then usually is very compliant with his medications but occasionally forgets his Eliquis dose. [facility] Medical History (Updated 10/24/24 @ 15:42 by Alexis Martínez MD) New onset a-fib Sleep walking Degenerative disc disease, lumbar Elevated cholesterol Lumbar herniated disc Hypertension Surgical History History of surgery on lower extremity Hx of removal of cyst Hx of umbilical hernia repair Hx of cystoscopy History of surgery H/O prostatectomy H/O left knee surgery Hx of hernia repair H/O colonoscopy Family History Father No problems noted. Mother No problems noted. Brother Substance use disorder Sister Substance use disorder Paternal Uncle Mental health disorder Paternal Aunt Mental health disorder Social History Alcohol intake: current Alcohol intake frequency: does not drink Comment: medicated in pacu Patient Tobacco Use Status: Never used Tobacco Review of Systems Const Denies chills, Denies daytime sleepiness, Denies fatigue, Denies fever(s), Denies frequent falls, Denies poor appetite, Denies snoring, Denies stops breathing during sleep, Denies weakness, Denies weight gain and Denies weight loss Eyes Denies loss of vision ENT Denies dizziness and Denies hearing loss Card Denies chest pain, Denies claudication, Denies leg edema, Denies lightheadedness, Denies palpitations, Denies dyspnea, Denies dyspnea on exertion and Denies orthopnea Resp Denies cough, Denies excessive phlegm production, Denies dyspnea, Denies dyspnea on exertion, Denies snoring and Denies wheezing GI Denies abdominal pain, Denies hematochezia, Denies change in bowel habits, Denies nausea and Denies vomiting Denies dysuria and Denies urinary frequency Musc Denies arthralgias, Denies muscle weakness, Denies numbness and Denies other (frequent falls) Skin/Breast Denies nail changes and Denies rash Neuro Denies Abnormal speech present, Denies dizziness, Denies frequent falls, Denies loss of vision, Denies memory loss, Denies numbness and Denies weakness Psych Denies depression and Denies memory loss Endo Denies fatigue and Denies palpitations Darien/Lymph Reports easy bruising and Reports other (anemia) Aller/Immun Denies wheezing Physical Exam Vital Signs: Last Vital Signs Pulse 91 10/24/24 12:46 BP 110/70 10/24/24 12:46 BMI result Body Mass Index 39.0 Const General: cooperative, comfortable, no acute distress, alert and awake Nutritional Appearance: obese Orientation/consciousness: patient oriented x3 Limitations: no limitations HEENT Head: Yes normocephalic and Yes atraumatic Neck Neck: Yes trachea midline, Yes supple and Yes no JVD Resp Effort & Inspection: normal respiratory effort Auscultation: clear to auscultation bilaterally Cardio Jugular venous distension: no JVD Rhythm: abnormal rhythm irregularly irregular Heart sounds: S1 normal heart sound present, S2 normal heart sound present, no click, no gallops and no murmurs GI Auscultation: normal bowel sounds Skin General skin exam: no rashes or lesions noted Neuro General: patient oriented x3 and no focal motor deficits Speech: No Abnormal speech present Extrem General: No clubbing, No cyanosis, No edema and Yes other (Bilateral varicose veins) Psych Appearance: grossly normal Office Procedures EKG Details: EKG shows atrial fibrillation with right superior axis deviation with no acute STT wave changes [id number], Complete Assessment & Plan Assessment & Plan (1) Persistent atrial fibrillation: Code(s): I48.19 - Other persistent atrial fibrillation Category: Medical Plan: Patient was recurrent atrial fibrillation with controlled rate at this point time with improved symptoms of palpitation and fast heart rate but continues to have symptoms of intermittent chest tightness. See below. At this point time we discussed at length about pathophysiology of atrial fibrillation. He has multiple risk factors for the same including hypertension, obesity as well as sleep apnea. Management of atrial fibrillation was discussed in details. Some of his recent symptoms of exercise intolerance appear most likely due to loss of AV synchrony and would suggest to pursue rhythm control approach. Will start him on Multaq 400 mg b.i.d. followed by synchronized cardioversion in near future. We discussed the procedure of synchronized cardioversion including risks, benefits, alternatives. He understands agrees. Uninterrupted Eliquis therapy was discussed. He understands and agrees. Strongly encouraged to pursue in-lab sleep study to see if he has sleep apnea even in the natural positions that he has sleep sent. He would then need treatment for sleep apnea. He is not quite enthusiastic about it. Also discussed about weight reduction. Understands agrees. Blood pressure is currently well optimized. (2) Chest tightness: Code(s): R07.89 - Other chest pain Category: Medical Plan: Patient with intermittent episodes of chest tightness not always exertional in nature but noticed 1st time when he was in atrial fibrillation rapid rate control. He has multiple risk factors for obstructive coronary artery disease. Strongly recommend exercise myocardial perfusion imaging to rule out obstructive coronary artery disease. This was discussed with him. He understands agrees. Meanwhile continue aggressive blood pressure control which is currently well optimized. Pursue rhythm control approach as above. Also if he has significant myocardial ischemia may require cardiac catheterization. This was discussed with him. Will follow up in the clinic in 4 weeks time, sooner p.r.n.. Thank you for allowing me to partake in his care Medications: New dronedarone (Multaq) must administer with a meal/food 400 mg PO BID 60 tabs 2RF Discontinued metoprolol succinate ER Discontinued Reason: Doctor's Order 25 mg PO DAILY 90 tabs 1RF Coding Level of Care Code New Pt Level 4 (10912) Complex EM visit Add On G2211 Diagnoses Persistent atrial fibrillation I48.19 Chest tightness R07.89 CPT Codes EKG - CPT: 25951-[id number], Complete ([id number])
== END 2024-10-24 13:49 | disposition home or self-care (01) ==
LOC: HO.HCS 12:44
PROVIDERS: PCP Nurse Practitioner Family; Visit Provider Internal Medicine Cardiovascular Disease
DX: I48.19 Other persistent atrial fibrillation (principal); R07.89 Other chest pain
CPT/HCPCS: 93010; 99214; G2211

== ENCOUNTER → 2024-10-24 12:44 | Outpatient (BNVA) | payer MEDICARE, MEDICAID, SELFPAY | PROVIDERS: PCP Nurse Practitioner Family; Visit Provider Internal Medicine Cardiovascular Disease | DX: I48.19 Other persistent atrial fibrillation (principal); R07.89 Other chest pain | CPT/HCPCS: 93005; 99212 ==

== ENCOUNTER → 2024-10-27 11:22 | Day surgery (SDC) | payer MEDICARE, MEDICAID, SELFPAY ==
--- OUTSIDE RECORDS SUMMARY | 2024-10-24 15:15 | XMS_ITS | Clinical Summary ---
Author Organization [facility] Address [address] [facility] [place] [address] Care Team Providers Care Extractor Puller Name Role Phone Unavailable Primary Care Provider [...] Description 11/14/2024 1:00 PM EDT Office Visit [facility] [address] [place] [address] Cece Alcantar RHD [address] [place] [address] Health Maintenance Due Date Last Done Comments Hepatitis C Screening 1950 Lipid Screening 1950 Medicare Annual Wellness Visit 1970 Imm-DTaP/Tdap/Td (1 - Tdap) 08/26/1971 CT Colonography 1997 Colonoscopy 1997 Colorectal Cancer Screening 1997 FIT/gFOBT 1997 Fecal DNA 1997 Flexible Sigmoidoscopy 1997 Imm-Pneumococcal 50+ (1 of 1 - PCV) 2002 Imm-Zoster, Recombinant (1 of 2) 2002 Falls Prevention 2017 [id number]-11 ( season) 12/05/202307/30/2 021, 07/03/2020 Alcohol and Drug Screen 04/05/2024 Depression Annual Screen 04/05/2024 Imm-Influenza (#1) 2024 Hypertension Screening (#1) 05/17/2025 Tobacco Screening [...]
--- NOTE | 2024-10-27 11:59 | ECG_ITS ---
Test Reason : NO LONGER IN AFIB Blood Pressure : */* mmHG Vent. Rate : 74 BPM Atrial Rate : 74 BPM P-R Int : 258 ms QRS Dur : 108 ms QT Int : 414 ms P-R-T Axes : 38 212 54 degrees QTcB Int : 459 ms Sinus rhythm with 1st degree A-V block Right superior axis deviation Abnormal ECG When compared with ECG of 02-Nov-2014 13:51, CA interval has increased Referred By: Alexis Martínez Electronically Signed By: Pepe Low
[2024-10-27 12:04] VITALS: BMI 39.1
[2024-10-27 12:09] VITALS: BP 137/87; PULSE 74; RESP 16; TEMP 36.7; O2SAT 94
--- NOTE | 2024-10-27 12:10 | PC.NURSE ---
CALLED FOR AN EKG
--- NOTE | 2024-10-27 12:29 | PC.NURSE ---
MD MONACO AWARE OF PATIENTS EKG AND IN A NORMAL RHYTHM. ASYMPTOMATIC. STATES HE FEELS BETTER. CALLED FOR A RIDE HOME. NO COMPLAINTS.
== END ==
LOC: HO.SSS 11:23
PROVIDERS: PCP Nurse Practitioner Family; Visit Provider Internal Medicine Cardiovascular Disease
DX: I48.19 Other persistent atrial fibrillation (principal); Z53.8 Procedure and treatment not carried out for other reasons
CPT/HCPCS: 93005

== ENCOUNTER → 2024-10-27 11:59 | Outpatient (BNV) | payer MEDICARE, MEDICAID, SELFPAY | PROVIDERS: PCP Nurse Practitioner Family; Visit Provider Internal Medicine Cardiovascular Disease | DX: I44.0 Atrioventricular block, first degree (principal) | CPT/HCPCS: 93010 ==

== ENCOUNTER 2024-11-16 14:59 | Outpatient (AMB) | payer MEDICARE, MEDICAID, SELFPAY ==
--- OUTSIDE RECORDS SUMMARY | 2024-11-16 15:35 | XMS_ITS | Clinical Summary ---
Author Organization [facility] Address PO [facility] [place] [address] Care Team Providers Care Bisque Tile Burner Name Role Phone Unavailable Primary Care Provider [...] Encounters Date Type Department Care Team Description 11/14/2024 1:00 PM EDT Office Visit [facility] [address] [place] [phone] Cece Alcantar RHD from Last 3 Months Immunizations Immunization Administration [...] Sign Reading Time Taken Comments Blood Pressure 123/86 11/14/2024 1:14 PM EDT Pulse 82 11/14/2024 1:14 PM EDT Temperature - - Respiratory Rate - - Oxygen Saturation - - Inhaled Oxygen Concentration - - Weight - - Height - - Body Mass Index - - Plan of Treatment Upcoming Encounters Date Type Department Care Team (Late st Contact Info) Description 12/13/2024 1:00 PM EDT Office Visit [facility] [address] [place] [phone] Hiwot Stewart, DDBerto [address] [place] [address] 05/22/2025 1:00 PM EST Office Visit [address] [place] [phone] Cece Alcantar Sandra [address] [place] [address] Health Maintenance Due Date Last Done Comments Hepatitis C Screening 1950 Lipid Screening 1950 Medicare Annual Wellness Visit 1970 Imm-DTaP/Tdap/Td (1 - Tdap) 08/26/1971 CT Colonography 1997 Colonoscopy 1997 Colorectal Cancer Screening 1997 FIT/gFOBT 1997 Fecal DNA 1997 Flexible Sigmoidoscopy 1997 Imm-Pneumococcal 50+ (1 of 1 - PCV) 2002 Imm-Zoster, Recombinant (1 of 2) 2002 Falls Prevention 2017 [id number]-00 ( season) 12/05/202307/30/ 021, 07/03/2020 Alcohol and Drug Screen 04/05/2024 Depression Annual Screen 04/05/2024 Imm-Influenza (#1) 2024 Dental Perio Charting 05/19/2025 05/17/2024 , 11/15/2023, 05/11/2023, Additional history exists Hypertension Screening (#1) 11/14/2025 Tobacco Screening 11/14/2025 11/14/2024 Dental BW 11/16/2025 11/14/2024, 05/06, 11/15/2023, Additional history exists Dental Examination 11/16/2025 11/14/2024, 0 05/17/2024, 11/15/2023, Additional history exists Dental Prophy 11/16/2025 11/14/2024, 05/06, 11/15/2023, Additional history exists Dental FMX/Pano 11/07/2027 11/04/2022 Procedures Procedure Name Priority Date/Time Associated Diagnosis Comments DENTAL CASE MANAGEMENT - MOTIVATIONAL INTV Routine 11/14/2024 1:00 PM EDT Encounter for dental examination PERIODIC ORAL EVALUATION ESTABLISHED PATIENT Routine 11/14/2024 1:00 PM EDT Encounter for dental examination PROPHYLAXIS - ADULT Routine 11/14/2024 1 :00 PM EDT Encounter for dental examination BITEWINGS - FOUR RADIOGRAPHIC IMAGES Routine 11/14/2024 1:00 PM EDT Encounter for dental examination CARIES RISK ASSESSMENT & DOC FINDING HIGH RISK Routine 11/14/2024 1:00 PM EDT Encounter for dental examination NUTRITIONAL COUNSELING CONTROL OF DENTAL DISEASE Routine 11/14/2024 1:00 PM EDT Encounter for dental examination ORAL HYGIENE INSTRUCTIONS Routine 11/14/2024 1:00 PM EDT Encounter for dental examination ORAL CANCER SCREENING Routine 11/14/2024 1:00 PM EDT Encounter for dental examination CASE PRESENTATION SUBS DTL & EXTENSIVE TX PLN Routine 11/14/2024 1:00 PM EDT Encounter for dental examination COMP PERIODONTAL EVALUATION - NEW/EST PATIENT Routine 05/17/2024 1:00 PM EST Encounter for dental examination PANORAMIC RADIOGRAPHIC IMAGE Routine 11/04/2022 1:00 PM EDT Caries of enamel (incipient) from Last 3 Months or Most Recently Relevant to Health Maintenance Insurance HEALTH SAFETY [place] DENT[place]
[2024-11-16 15:36] VITALS: BP 124/70; PULSE 72; BMI 38.5
--- NOTE | 2024-11-16 15:36 | MHC.OFFVIS ---
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: No Accompanied by: Self / Same As Patient Allergies tamsulosin (Flomax) Allergy (Intermediate, Verified 07/06/24 13:37) Irritated throat/sinuses oxycodone (From PERCOCET) Allergy (Mild, Verified 07/06/24 13:37) ITCHY aspirin (ASA) Adverse Reaction (Intermediate, Verified 07/06/24 13:37) GI UPSET, upset stomach pollen extracts (POLLEN) Adverse Reaction (Intermediate, Verified 07/06/24 13:37) SINUS PROBLEMS fluticasone (From Flonase) Adverse Reaction (Unknown, Verified 07/06/24 13:37) Unknown Medication List - Last Reconciled 11/16/24 by Ben Moncada NP apixaban (Eliquis) 5 mg PO BID 30 days ascorbic acid (vitamin C) 1 g PO DAILY atorvastatin 20 mg PO DAILY cetirizine (Allergy Relief (cetirizine)) 10 mg PO DAILY PRN cholecalciferol (vitamin D3) 25 mcg PO DAILY diphenhydramine-acetaminophen 25-500 mg (Tylenol PM Extra Strength) 1 tab PO BEDTIME PRN dronedarone (Multaq) 400 mg PO BID lisinopril-hydrochlorothiazide 10-12.5 mg 1 tab PO DAILY magnesium oxide 400 mg PO DAILY turmeric root extract 500 mg PO DAILY HPI Comments Details: This is a 74-year-old male patient coming in for a follow-up visit. Patient with a history of hypertension, dyslipidemia and new AFib. At last visit, patient had reported some chest discomfort with intermittent palpitations and elevated heart rates. Patient was planned to start Multaq and follow up with the cardioversion however after being on Multaq patient converted back to sinus rhythm and did not need a cardioversion. Today, patient reports feeling well overall with infrequent chest tightness without any associated symptoms of shortness of breath, palpitations, dizziness, orthopnea, PND, leg edema mobile presyncope, or syncope. Patient reports compliance with all his medications. [facility] Medical History (Updated 11/16/24 @ 16:14 by Ben Moncada NP) Persistent atrial fibrillation Sleep apnea New onset a-fib Sleep walking Degenerative disc disease, lumbar Elevated cholesterol Lumbar herniated disc Hypertension Surgical History History of surgery on lower extremity Hx of removal of cyst Hx of umbilical hernia repair Hx of cystoscopy History of surgery H/O prostatectomy H/O left knee surgery Hx of hernia repair H/O colonoscopy Family History Father No problems noted. Mother No problems noted. Brother Substance use disorder Sister Substance use disorder Paternal Uncle Mental health disorder Paternal Aunt Mental health disorder Social History Alcohol intake: current Alcohol intake frequency: does not drink Comment: medicated in pacu Patient Tobacco Use Status: Never used Tobacco Review of Systems Const Denies chills, Denies fatigue, Denies fever(s), Denies frequent falls, Denies weakness, Denies weight gain and Denies weight loss ENT Denies dizziness Card Denies chest pain, Denies leg edema, Denies lightheadedness, Denies palpitations, Denies dyspnea and Denies dyspnea on exertion Resp Denies cough, Denies dyspnea and Denies dyspnea on exertion GI Denies hematochezia Musc Denies abnormal gait, Denies muscle weakness, Denies numbness, Denies radiating pain into limb and Denies tingling Neuro Denies abnormal gait, Denies dizziness, Denies frequent falls, Denies numbness, Denies tingling and Denies weakness Endo Denies fatigue and Denies palpitations Physical Exam Vital Signs: Last Vital Signs Pulse 72 11/16/24 15:36 BP 124/70 11/16/24 15:36 BMI result Body Mass Index 38.5 Const General: cooperative, healthy appearing, comfortable and no acute distress Orientation/consciousness: patient oriented x3 HEENT Head: Yes normal to inspection Neck Neck: Yes normal visual inspection, Yes trachea midline and Yes supple Chest Chest palpation & inspection: normal inspection of the chest Resp Effort & Inspection: normal respiratory effort Auscultation: clear to auscultation bilaterally, no crackles, no rales, no rhonchi and no wheezes Cardio Jugular venous distension: no JVD Palpation: normal PMI Rate: regular rate Rhythm: regular rhythm Heart sounds: S1 normal heart sound present, S2 normal heart sound present, no click, no gallops, no murmurs and no rubs Peripheral pulses: Peripheral pulses 2+ throughout GI Inspection: Yes normal to inspection Palpation (GI): Soft to palpation Auscultation: normal bowel sounds Skin General skin exam: no rashes or lesions noted Neuro General: patient oriented x3 Extrem General: Yes normal to inspection, No no pedal edema and No calf tenderness Psych Appearance: grossly normal Mental Status: mental status grossly normal Speech and movement: Normal speech and movement present Office Procedures EKG Details: EKG today showed sinus rhythm with a first-degree AV block, rate 72 beats per minute, right axis deviation, incomplete right bundle branch block, nonspecific STT wave, DC 254 milliseconds, [place]. [address]-Qqcszmspaqxdvzrbq, Complete Assessment & Plan Assessment & Plan (1) Afib: Code(s): I48.91 - Unspecified atrial fibrillation Category: Medical Plan: EKG today showed normal sinus rhythm. Patient to continue with Multaq for rhythm control. Patient denies any symptoms of palpitations or elevated heart rates. Continue Eliquis for full anticoagulation therapy. No reported signs of bleeding or falls. We will check kidney function prior to next visit. We discussed in case of any recurrence of symptoms with palpitations and heart racing then we can repeat a Holter. (2) Chest tightness: Code(s): R07.89 - Other chest pain Category: Medical Plan: Given his reported symptoms of chest tightness and multiple risk factors, we will proceed with a myocardial perfusion study to assess for any ischemic changes. (3) Hypertension: Code(s): I10 - Essential (primary) hypertension Category: Medical Plan: Blood pressure stable. Continue current regimen. Advised monitoring blood pressures at home with a goal less than 130/80. (4) Dyslipidemia: Code(s): E78.5 - Hyperlipidemia, unspecified Category: Medical Plan: Continue statin therapy with an LDL goal closer to 70. Advised heart healthy diet, regular exercise, med compliance, and management of vascular risk factors. Follow-up after stress test. In the interim, patient will call the office with any concerns or change in symptoms. This note was generated using voice recognition software. While every effort has been made to ensure accuracy and proper button riveter, there may be occasional errors that could affect the content or meaning of the described symptoms. Orders: Orders Basic Metabolic Panel Today R07.89 - Other chest pain CA stress test Today R07.89 - Other chest pain NM cardiolite stress test Today I48.19 - Other persistent atrial fibrillation, R07.89 - Other chest pain AMB EKG-In Office Today I48.19 - Other persistent atrial fibrillation Complete Blood Count no Diff Today I48.19 - Other persistent atrial fibrillation Coding Level of Care Code Est Pt Level 4 (20627) Complex EM visit Add On G2211 Diagnoses Afib I48.91 Chest tightness R07.89 Hypertension I10 Dyslipidemia E78.5 CPT Codes EKG - CPT: 15415-Isuwgoavzxmfskzph, Complete ([id number]) Time Spent (min) 31 Comment Time spent in reviewing the chart, test results, assessment, counseling and documentation.
== END 2024-11-16 16:00 | disposition home or self-care (01) ==
LOC: HO.HCS 14:59
PROVIDERS: PCP Nurse Practitioner Family
DX: I48.91 Unspecified atrial fibrillation (principal); R07.89 Other chest pain; I10 Essential (primary) hypertension; E78.5 Hyperlipidemia, unspecified
CPT/HCPCS: 93010; 99214; G2211

== ENCOUNTER → 2024-11-16 14:59 | Outpatient (BNVA) | payer MEDICARE, MEDICAID, SELFPAY | PROVIDERS: PCP Nurse Practitioner Family | DX: R07.89 Other chest pain (principal); I48.91 Unspecified atrial fibrillation; I10 Essential (primary) hypertension; E78.5 Hyperlipidemia, unspecified; R94.31 Abnormal electrocardiogram [ECG] [EKG]; I44.0 Atrioventricular block, first degree; I45.19 Other right bundle-branch block | CPT/HCPCS: 93005; 99212 ==

== ENCOUNTER 2024-11-29 14:46 | Outpatient (AMB) | payer MEDICARE, MEDICAID, SELFPAY ==
--- NOTE | 2024-11-29 14:49 | A.OFFVIS_ITS ---
Intake Visit Reasons: 1yr PSA/PVR Intake Note: Patient is Present for 1 yr follow up Urology Med: VIT-C Antibiotic Allergy: None Blood Thinner: eliquis PVR:0 mls Labs done 08/17/2024: PSA 0.66 Promotion Officer Required: No Accompanied by: Self / Same As Patient Allergies tamsulosin (Flomax) Allergy (Intermediate, Verified 11/29/24 14:51) Irritated throat/sinuses oxycodone (From PERCOCET) Allergy (Mild, Verified 11/29/24 14:51) ITCHY aspirin (ASA) Adverse Reaction (Intermediate, Verified 11/29/24 14:51) GI UPSET, upset stomach pollen extracts (POLLEN) Adverse Reaction (Intermediate, Verified 11/29/24 14:51) SINUS PROBLEMS fluticasone (From Flonase) Adverse Reaction (Unknown, Verified 11/29/24 14:51) Unknown HPI Comments Details: Rory is a pleasant male. He is a patient of Dr. Pires. He is seen for the following urologic conditions - lower urinary tract symptoms - microscopic hematuria - epididymal tenderness Yearly follow-up PVR 0 cc PSA 0.66 No urology meds Follow p.r.n. Talked about daily cold pressed all of coil Partial epididymectomy Follow-up left partial epididymectomy - Epididymis with mild fibrosis and chronic inflammation, consistent with chronic epididymitis Pain resolved with resection Microscopic hematuria Cysto and imaging evaluation completed 2021 Lower urinary tract symptoms Underwent prostate procedure in office February 2017 Continued benefit PSA - 10/23 0.49, 10/23 0.56 [facility] Medical History (Updated 11/16/24 @ 16:14 by Ben Moncada NP) Persistent atrial fibrillation Sleep apnea New onset a-fib Sleep walking Degenerative disc disease, lumbar Elevated cholesterol Lumbar herniated disc Hypertension Surgical History History of surgery on lower extremity Hx of removal of cyst Hx of umbilical hernia repair Hx of cystoscopy History of surgery H/O prostatectomy H/O left knee surgery Hx of hernia repair H/O colonoscopy Family History Father No problems noted. Mother No problems noted. Brother Substance use disorder Sister Substance use disorder Paternal Uncle Mental health disorder Paternal Aunt Mental health disorder Social History Alcohol intake: current Alcohol intake frequency: does not drink Comment: medicated in pacu Patient Tobacco Use Status: Never used Tobacco Review of Systems Const Denies chills and Denies fever(s) Card Reports no additional complaints and Denies syncope Resp Denies cough GI Denies abdominal pain and Denies heartburn Reports as per HPI and Denies change in libido Neuro Denies syncope Psych Denies change in libido Endo Denies change in libido Physical Exam Const General: cooperative, healthy appearing, comfortable and no acute distress Orientation/consciousness: patient oriented x3 HEENT Face and sinus: Yes normal facial exam Mouth: moist mucous membranes Neck Neck: Yes normal visual inspection, Yes full ROM and Yes trachea midline Chest Chest palpation & inspection: normal inspection of the chest Resp Effort & Inspection: normal respiratory effort, able to speak in complete sentences and no respiratory distress GI Inspection: Yes normal to inspection Back/Spine/Pelvis Cervical Spine: normal cervical lordosis Thoracic/Lumbar Spine: thoracic and lumbar spine normal to inspection Skin General skin exam: no rashes or lesions noted Neuro General: patient oriented x3, gait normal, tone normal and moves all extremities Extrem General: Yes normal to inspection and Yes capillary refill normal Office Procedures Post Void Residual Post Residual Void Post Void Residual (PVR): 0 42102-Oppr Void Residual by ultrasound Results AMB Urinalysis, Automated UA Leukoctes 0 Dipesh/uL Last Edit by BAKARI Samano on 11/29/24 15:07 UA Nitrite Negative Last Edit by BAKARI Samano on 11/29/24 15:07 UA Urobilinogen 0.2 mg/dL Last Edit by BAKARI Samano on 11/29/24 15:0 7 UA Protein 30 mg/dL Last Edit by BAKARI Samano on 11/29/24 15:07 UA pH 5.5 Last Edit by BAKARI Samano on 11/29/24 15:07 UA Blood 10 Moise/uL Last Edit by BAKARI Samano on 11/29/24 15:07 UA Specific [place] 1.025 Last Edit by BAKARI Samano on 11/29/24 15: 07 UA Ketone Negative Last Edit by BAKARI Samano on 11/29/24 15:07 UA Bilirubin 0 mg/dL Last Edit by BAKARI Samano on 11/29/24 15:07 UA Glucose 0 mg/dL Last Edit by BAKARI Samano on 11/29/24 15:07 Results Reviewed Results Reviewed: Laboratory Last Values Urine pH (Auto) 5.5 11/29/24 15:06 Specific [place] (Auto) 1.025 11/29/24 15:06 Urine Protein (Auto) 30 mg/dL 11/29/24 15:06 Glucose (UA)(Auto) 0 mg/dL 11/29/24 15:06 Urine Ketones (Auto) Negative 11/29/24 15:06 Urine Blood (Auto) 10 Moise/uL 11/29/24 15:06 Urine Nitrite (Auto) Negative 11/29/24 15:06 Urine Bilirubin (Auto) 0 mg/dL 11/29/24 15:06 Urine Urobilinogen (Auto) 0.2 mg/dL 11/29/24 15:06 Leukocyte Esterase (Auto) 0 Dipesh/uL 11/29/24 15:06 Assessment & Plan Assessment & Plan (1) Lower urinary tract symptoms due to benign prostatic hyperplasia: Code(s): N40.1 - Benign prostatic hyperplasia with lower urinary tract symptoms Category: Medical Plan P.r.n. follow-up Orders: Orders AMB Post Void Residual by ultrasound Today N40.1 - Benign prostatic hyperplasia with lower urinary tract symptoms AMB Urinalysis Automated Today Z13.9 - Encounter for screening, unspecified Patient Instructions: This note is constructed using voice recognition software. While every effort has been made to ensure accuracy software developer mid level errors may have been included. Imaging studies, laboratory and physical exam results were discussed and reviewed in detail. No major barriers to patient understanding were identified. An opportunity to ask questions regarding the treatment plan was provided. All questions were answered. The patient expressed understanding and agreement with the above treatment plan. The patient is aware they should contact our office by phone for worsening of their current condition or the appearance of new urologic symptoms. Compliance is encouraged with any medications and followup testing that is ordered. It is a privilege to participate in the urologic care of your patient. If you have any questions or concerns regarding treatment for the above conditions, or other urologic issues, please do not hesitate to contact me. The office telephone contact is [phone]. Sincerely, Dr Carlos Gil MD, [facility] - Urology Compassionate Specialist Care for the Genitourinary System Coding Level of Care Code Est Pt Level 4 (81192) Diagnoses Lower urinary tract symptoms due to benign prostatic hyperplasia N40.1 CPT Codes Post Residual Void - PVR CPT Code: 99581-Djqj Void Residual by ultrasound ([id number])
--- OUTSIDE RECORDS SUMMARY | 2024-11-29 16:08 | XMS_ITS | Clinical Summary ---
Author Organization [facility] Address [address] [facility] [place] [address] Care Team Providers Care Program Paraprofessional Name Role Phone Unavailable Primary Care Provider [...] Description 11/14/2024 1:00 PM EDT Office Visit [facility] [address] [place] [phone] Cece Alcantar RHD from Last 3 Months [...] Description 12/13/2024 1:00 PM EDT Office Visit [facility] [address] [place] [phone] Hiwot Stewart, DDS [address] [place] [address] 05/22/2025 1:00 PM EST Office Visit [facility] [address] [place] [phone] Cece Alcantar Sandra [address] [place] [address] Health Maintenance Due Date Last Done Comments Hepatitis C Screening 1950 Lipid Screening 1952 Medicare Annual Wellness Visit 1970 Imm-DTaP/Tdap/Td (1 - Tdap) 08/26/1971 CT Colonography 1997 Colonoscopy 1997 Colorectal Cancer Screening 1997 FIT/gFOBT 1997 Fecal DNA 1997 Flexible Sigmoidoscopy 1997 Imm-Pneumococcal 50+ (1 of 1 - PCV) 2002 Imm-Zoster, Recombinant (1 of 2) 2002 Falls Prevention 2017 [id number] ( season) 12/05/202307/30/ 021, 07/03/2020 Alcohol and [...]
== END 2024-11-29 16:36 | disposition home or self-care (01) ==
LOC: HO.HUSH 14:47
PROVIDERS: PCP Nurse Practitioner Family; Visit Provider Urology
DX: Z13.9 Encounter for screening, unspecified (principal); N40.1 Benign prostatic hyperplasia with lower urinary tract symptoms
CPT/HCPCS: 99214

== ENCOUNTER → 2024-11-29 14:46 | Outpatient (BNVA) | payer MEDICARE, MEDICAID, SELFPAY | PROVIDERS: PCP Nurse Practitioner Family; Visit Provider Urology | DX: N40.1 Benign prostatic hyperplasia with lower urinary tract symptoms (principal); Z13.9 Encounter for screening, unspecified | CPT/HCPCS: 51798; 81003; 99212 ==

== ENCOUNTER 2024-12-27 15:11 | Outpatient (AMB) | payer MEDICARE, MEDICAID, SELFPAY ==
--- NOTE | 2024-12-27 15:21 | A.OFFVIS_ITS ---
Vital Signs 12/27/24 15:30 Height 5 ft 11 in Weight 273 lb BMI 38.1 BP 104/74 Blood Pressure Location Rt brachial Position Sitting Pulse 76 Pulse Source Pulse Oximeter Pulse Oximetry (%) 95 Oxygen Delivery Method Room Air Intake Visit Reasons: Colonoscopy Screening Intake Note: New pt for recall colo screening. Last 2018. CC; Pt denies any GI sx or concerns at this time. 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 male with past medical history of AFib, sleep apnea, varicose veins of bilateral lower extremities, dyslipidemia, ventral and umbilical hernia, hypertension is here today for pre colonoscopy screening.? Patient was sent to us by his PCP.? Last colonoscopy in 2019.? Patient denies any gastrointestinal symptoms in the past or at present.? However patient does admit he occasionally will have frequent stooling. Not eating in a fiber. Denies any family history of CRC.? Denies history of difficulty with sedation or anesthesia in the past.? History of sleep apnea not using CPAP.? Denies any history of cardiac, renal, pulmonary, or hepatic disease.?? No history of infectious? diseases like hepatitis A, B, C, HIV or tuberculosis.? Patient was diagnosed few months ago with a fit and is on Eliquis. Patient has nuclear stress the in the near future and follow-up to discuss the results with granular operator. Will send a message to real estate office supervisor to add risk stratification to appointment. [facility] Medical History Persistent atrial fibrillation Sleep apnea New onset a-fib Sleep walking Degenerative disc disease, lumbar Elevated cholesterol Lumbar herniated disc Hypertension Surgical History History of surgery on lower extremity Hx of removal of cyst Hx of umbilical hernia repair Hx of cystoscopy History of surgery H/O prostatectomy H/O left knee surgery Hx of hernia repair H/O colonoscopy Family History Father No problems noted. Mother No problems noted. Brother Substance use disorder Sister Substance use disorder Paternal Uncle Mental health disorder Paternal Aunt Mental health disorder Social History Alcohol intake: current Alcohol intake frequency: does not drink Comment: medicated in pacu Patient Tobacco Use Status: Never used Tobacco Review of Systems Const Denies weight gain and Denies weight loss ENT Reports no additional complaints, Denies dysphagia and Denies odynophagia Card Reports no additional complaints Resp Reports no additional complaints GI Denies abdominal pain, Denies belching, Denies melena, Reports bloating, Denies change in bowel habits, Denies dysphagia, Denies excessive flatus, Denies dyspepsia, Denies heartburn, Denies diarrhea, Denies loose stools, Denies nause a, Denies odynophagia, Denies vomiting and Reports other (frequent stool) Reports no additional complaints Musc Reports no additional complaints Neuro Reports no additional complaints Psych Reports no additional complaints Endo Reports no additional complaints Physical Exam Vital Signs: Last Vital Signs Pulse 76 12/27/24 15:30 BP 104/74 12/27/24 15:30 Pulse Ox 95 12/27/24 15:30 Oxygen Delivery Method Room Air 12/27/24 15:30 BMI result Body Mass Index 38.1 Const General: healthy appearing, no acute distress and well developed Nutritional Appearance: well nourished and obese Orientation/consciousness: patient oriented x3 Resp Effort & Inspection: normal respiratory effort, able to speak in complete sentences, no tracheal deviation and symmetric chest movement Auscultation: clear to auscultation bilaterally Cardio Rate: regular rate GI Inspection: Yes normal to inspection, No distended and Yes obesity Palpation (GI): Soft to palpation, not firm, nontender and No hepatosplenomegaly present Auscultation: normal bowel sounds General: Yes no CVA tenderness Back/Spine/Pelvis Back: no CVA tenderness Skin General skin exam: elasticity normal, turgor normal and dry skin Neuro General: patient oriented x3 Psych Appearance: grossly normal Mental Status: mental status grossly normal Assessment & Plan Assessment & Plan (1) Screening for colon cancer: Code(s): Z12.11 - Encounter for screening for malignant neoplasm of colon Category: Medical Plan Patient denies any cardiac or respiratory symptoms.? Patient stools 2 to 3 times a day. Incomplete emptying. Patient will start high-fiber diet. May take apho-pbd-uvrbzli fiber supplement. Diagnosed with AFib few months ago. Patient is going for stress test in February and has appointment with granular operator after. Will ask for risk stratification before sending him for procedure. Denies any issues with anesthesia in the past.? History of sleep apnea, not using CPAP.? No history infectious diseases in the past or present.? Patient is on Eliquis. If cleared by Cardiology hold Eliquis for 48 hours before proced ure.? No family history of colon cancer..? Patient denies melena, hematochezia, unintentional weight loss or ribbon like stools.? Discussed at length the pre- procedure,? prep, diet & medications as well as what to expect prior, during and after the procedure.?? Stressed the importance of good bowel prep.? Recommended the use of Vaseline or Calmoseptine OTC & baby wipes with bowel movements to pro mote comfort.? ?Patient verbalizes understanding and agrees to plan of care.? He was given the opportunity to ask questions and all questions answered.? We will see him after the procedure.? Orders: Referrals GI Procedure Notification Z12.11 - Encounter for screening for malignant neoplasm of colon Medications: New bisacodyl (Dulcolax (bisacodyl)) take 4 tabs at noon the day before your colonoscopy 20 mg (4 x 5 mg) PO ONCE 4 tabs 0RF constipation 1 day Z12.11 - Encounter for screening for malignant neoplasm of colon polyethylene glycol 3350 (Miralax) As directed by gastroenterology department at [facility] 238 grams PO ONCE 238 grams 0RF Z12.11 - Encounter for screening for malignant neoplasm of colon Coding Level of Care Code New Pt Level 3 (63056) Diagnoses Screening for colon cancer Z12.11 Time Spent (min) 40 Comment 30 minutes spent with patient and additional 10 minutes spent reviewing his records
[2024-12-27 15:30] VITALS: BP 104/74; PULSE 76; O2SAT 95; BMI 38.1
--- OUTSIDE RECORDS SUMMARY | 2024-12-27 17:39 | XMS_ITS | Clinical Summary ---
Author Organization [facility] Address [address] [place] [address] Care Team Providers Care Over Hauler Helper Name Role Phone Unavailable Primary Care Provider [...] Encounters Date Type Department Care Team Description 12/15/2024 4:00 PM EDT Office Visit [address] [phone] Weblogic Developer, Emilia 12/13/2024 1:00 PM EDT Office Visit [address] [phone] Hiwot Stewart DDS 11/14/2024 1:00 PM EDT Office Visit [address] [phone] Cece Alcantar RHD from Last 3 Months [...] Sign Reading Time Taken Comments Blood Pressure 146/89 12/13/2024 1:18 PM EDT Pulse 70 12/13/2024 1:18 PM EDT Temperature - - Respiratory Rate - - Oxygen Saturation - - Inhaled Oxygen Concentration - - Weight - - Height - - Body Mass Index - - Plan of Treatment Upcoming Encounters Date Type Department Care Team (Late st Contact Info) Description 05/22/2025 1:00 PM EST Office Visit [facility] [address] [place] [phone] Cece Alcantar, RHD [address] [place] [address] Health Maintenance Due Date Last Done Comments Hepatitis C Screening 1952 Lipid Screening 1952 Medicare Annual Wellness Visit 1970 Imm-DTaP/Tdap/Td (1 - Tdap) 08/26/1971 CT Colonography 1997 Colonoscopy 1997 Colorectal Cancer Screening 1997 FIT/gFOBT 1997 Fecal DNA 1997 Flexible Sigmoidoscopy 1997 Imm-Pneumococcal 50+ (1 of 1 - PCV) 2002 Imm-Zoster, Recombinant (1 of 2) 2002 Falls Prevention 2017 Alcohol and Drug Screen 04/05/2024 Depression Annual Screen 04/05/2024 [id number] ( season) 12/04/202407/30/2 021, 07/03/2020 Imm-Influenza (#1) 2024 Dental Perio Charting 05/19/2025 05/17/2024 , 11/15/2023, 05/11/2023, Additional history exists Dental BW 11/16/2025 11/14/2024, 05/06, 11/15/2023, Additional history exists Dental Examination 11/16/2025 11/14/2024, 0 05/17/2024, 11/15/2023, Additional history exists Dental Prophy 11/16/2025 11/14/2024, 05/06, 11/15/2023, Additional history exists Hypertension Screening (#1) 12/13/2025 Tobacco Screening 12/13/2025 12/13/2024 Dental FMX/Pano 11/07/2027 11/04/2022 Procedures Procedure Name Priority Date/Time Associated Diagnosis Comments Max REPAIR BROKEN COMPLETE DENTURE BASE MAXILLARY Routine 12/15/2024 4:00 PM EDT Encounter for dental examination IMPRESSIONS Routine 12/13/2024 1:00 PM EDT Encounter for dental examination DENTAL CASE MANAGEMENT [...] Relevant to Health Maintenance Insurance HEALTH SAFETY [facility] DENTAL MEDICARE - [place] MEDICAID
== END 2024-12-27 16:20 | disposition home or self-care (01) ==
LOC: HO.HGI 15:12
PROVIDERS: PCP Nurse Practitioner Family; Visit Provider Nurse Practitioner Family
DX: Z01.818 Encounter for other preprocedural examination (principal); Z12.11 Encounter for screening for malignant neoplasm of colon
CPT/HCPCS: 99024

== ENCOUNTER → 2024-12-27 15:11 | Outpatient (BNVA) | payer MEDICARE, MEDICAID, SELFPAY | PROVIDERS: PCP Nurse Practitioner Family; Visit Provider Nurse Practitioner Family | DX: R19.7 Diarrhea, unspecified (principal); Z12.11 Encounter for screening for malignant neoplasm of colon; Z01.818 Encounter for other preprocedural examination | CPT/HCPCS: 99212 ==

== ENCOUNTER → 2025-01-04 10:00 | Outpatient (REF) | payer MEDICARE, MEDICAID, SELFPAY ==
--- NOTE | ~2025-01-04 | NM_ITS ---
EXERCISE MYOCARDIAL PERFUSION STUDY INDICATION: Chest pain TECHNIQUE: The patient was brought in for an exercise perfusion study on 01/04/2025. Patient performed exercise as per Mac protocol and was injected 40 mCi of sestamibi once target heart rate was achieved. Images were obtained using the SPECT gamma camera interlaced with the gating device. Images were obtained in supine position. Resting perfusion study was performed on 01/05/2025. Patient was administered 40 mCi of sestamibi intravenously at rest. Images were then obtained in supine position. Total DLP 88 mGy-cm. Images were processed with the software and compared side to side in short axis, horizontal long axis and vertical long axis views. FINDINGS: Raw aquisition reviewed. The stress perfusion study showed decreased tracer uptake along the inferior wall the basal to mid portions. Improvement with CT attenuation correction suggestive of components of diaphragmatic attenuation artifact. The gated study shows normal LV systolic function with calculated LVEF of 70%. LV cavity is normal in size. The gated study shows normal wall thickening and contraction of segments. Resting study shows mildly diminished tracer uptake in the basal part of inferior wall. Improvement with CT attenuation correction suggestive of diaphragmatic attenuation artifact. Gating at rest reveals normal wall motion with ejection fraction at 68%. The findings are consistent with no clear reversible or fixed perfusion defects. NM/NM cardiolite stress test IMPRESSION: 1. Myocardial perfusion imaging study shows probably normal myocardial perfusion. 2. Gated LVEF is 70% during stress and 68% during rest. 3. Transient ischemic dilatation not present. EKG component of the test reported separately. Electronically signed by: Juan Ramos MD 01/07/2025 01:32 PM EDT
--- NOTE | 2025-01-04 10:05 | CA_ITS ---
Acquisition Time: 2025-01-04 10:31:02 Total Exercise Time: 00:05:00 Test Indications: CP,Abnormal ECG Medications: ELIQUIS ATORVASTATIN CETIRIZINE MULTAQ LISINOPRIL/HCTZ Protocol: PERLITA Max HR: 136 BPM 91% of Pred: 148 BPM Max BP: 174/70 mmHG Max Work Load: 7.0 METS Exercise stress test with exercise 5 min of Perlita protocol, achieving 91% MPHR, with moderate shortness of breath and fatigue and need to stop, with isolated PVC, cuplets in recovery, with normotensive response to exercise, without EKG [facility] for ischemia. Nuclear images pending. Test reviewed with Dr Ramos. Referred By: Ben Moncada Electronically Signed By: LARRY GUERRERO
== END ==
LOC: HO.CARD 10:00
PROVIDERS: PCP Nurse Practitioner Family; Visit Provider Internal Medicine Cardiovascular Disease
DX: I48.19 Other persistent atrial fibrillation (principal); R07.89 Other chest pain
CPT/HCPCS: 78452; 93017; A9500

== ENCOUNTER → 2025-01-04 10:05 | Outpatient (BNV) | payer MEDICARE, MEDICAID, SELFPAY | PROVIDERS: PCP Nurse Practitioner Family; Visit Provider Nurse Practitioner Family | DX: I49.3 Ventricular premature depolarization (principal); R06.02 Shortness of breath | CPT/HCPCS: 78452; 93016; 93018 ==

== ENCOUNTER 2025-01-05 12:46 | Outpatient (REF) | payer MEDICARE, MEDICAID, SELFPAY ==
--- OUTSIDE RECORDS SUMMARY | 2025-01-05 13:17 | XMS_ITS | Clinical Summary ---
Author Organization [facility] Address [address] [place] [address] Care Team Providers Care Hoist Operator Name Role Phone Unavailable Primary Care [...] Description 12/15/2024 4:00 PM EDT Office Visit [address] [phone] Bracelet Maker Novelty, Emilia 12/13/2024 1:00 PM EDT Office Visit [address] [phone] Hiwot Stewart DDS 11/14/2024 1:00 PM EDT Office Visit [address] [phone] Cece Alcantar RHD from Last 3 Months [...] Description 05/22/2025 1:00 PM EST Office Visit [facility] [address] [place] [phone] Cece Alcantar, RHD [address] [place] [address] Health Maintenance Due Date Last Done Comments [...] Drug Screen 04/05/2024 Depression Annual Screen 04/05/2024 [id number] ( season) 12/04/202407/30/2 021, 07/03/2020 Imm-Influenza (#1) [...] Relevant to Health Maintenance Insurance HEALTH SAFETY [facility] DENTAL MEDICARE - [place]
[2025-01-05 14:06] LABS: Hematocrit 42.9 % (42.0-52.0); Hemoglobin 14.8 g/dl (14.0-18.0); Mean Corpuscular HGB Conc 34.5 g/dl (31.0-36.0); Mean Corpuscular Hemoglobin 30.5 pg (27.0-33.0); Mean Corpuscular Volume 88.3 fL (80.0-98.0); NRBC Abs Auto 0.000 X10*3/uL (0.0-0.012); NRBC Pct Auto 0.0 /100WBC (0.0-0.2); Platelet Count 228 X10*3/uL (160-400); Red Blood Count 4.86 X10*6/uL (4.60-5.80); White Blood Count 5.0 X10*3/uL (4.8-10.8)
[2025-01-05 14:41] LABS: Anion Gap 10 (12-20); Blood Urea Nitrogen 14 mg/dL (9-16); Calcium 9.2 mg/dL (8.4-10.2); Carbon Dioxide 28 mmol/L (22-29); Chloride 107 mmol/L (96-108); Estimated Glomerular Filt Rate > 60; Potassium 3.8 mmol/L (3.3-5.1); Sodium 141 mmol/L (135-145)
== END 2025-01-05 12:47 | disposition home or self-care (01) ==
LOC: HO.LAB 12:46
PROVIDERS: PCP Nurse Practitioner Family
DX: R07.89 Other chest pain (principal); I48.19 Other persistent atrial fibrillation
CPT/HCPCS: 36415; 80048; 85027

== ENCOUNTER 2025-01-11 13:09 | Outpatient (AMB) | payer MEDICARE, MEDICAID, SELFPAY ==
[2025-01-11 13:19] VITALS: BP 110/68; PULSE 85; RESP 16; O2SAT 97; BMI 38.1
--- NOTE | 2025-01-11 13:19 | MHC.PC.OV ---
Vital Signs 01/11/25 13:19 Height 5 ft 11 in Weight 273 lb BMI 38.1 BP 110/68 Blood Pressure Location Rt brachial Position Sitting Respiration 16 Pulse 85 Pulse Source Pulse Oximeter Pulse Oximetry (%) 97 Oxygen Delivery Method Room Air Intake Visit Reasons: 6m f/u Extruder Tender Required: No Accompanied by: Self / Same As Patient Allergies tamsulosin (Flomax) Allergy (Intermediate, Verified 01/11/25 13:35) Irritated throat/sinuses oxycodone (From PERCOCET) Allergy (Mild, Verified 01/11/25 13:35) ITCHY aspirin (ASA) Adverse Reaction (Intermediate, Verified 01/11/25 13:35) GI UPSET, upset stomach pollen extracts (POLLEN) Adverse Reaction (Intermediate, Verified 01/11/25 13:35) SINUS PROBLEMS fluticasone (From Flonase) Adverse Reaction (Unknown, Verified 01/11/25 13:35) Unknown Tobacco use date assessed: 01/11/25 Fall risk assessment: No Falls in past year Last assessed Fall Risk: 01/11/25 Dental Screening Dental Screen Date: 01/11/25 Did you have a dental visit in the last 12 months?: Yes Did you have a dental problem in the last 6 months where you did not have access to dental care?: No Was dental information given to patient?: Patient has dentist HPI 6m f/u HPI Details Chief Complaint The patient presents for follow-up management of dyslipidemia. History of Present Illness The patient is a 74-year-old male presenting with dyslipidemia. He is here for a follow-up visit to manage his lipid levels. The patient regularly follows up with cardiology, which has been beneficial for his condition. He has experienced weight loss recently, which may be contributing positively to his lipid profile. Social History Health Maintenance - Lipid panel ordered for dyslipidemia management Review of Systems - Cardiovascular: Denies chest pain, denies dyspnea - Neurological: Denies headaches, denies blurred vision Physical Exam General: Cooperative, healthy appearing, comfortable, no acute distress and well developed Orientation: Patient oriented x3 Limitations: No limitations Head: Normal to inspection Ears: Hearing grossly normal bilaterally Nose: Normal external nose present Face and sinus: Normal facial exam Eyes: Appearance normal, both eyes and all related structures Neck: Normal visual inspection and Yes full ROM Respiratory: Normal respiratory effort and able to speak in complete sentences. Clear to auscultation bilaterally Cardiovascular: Regular rate and rhythm. Normal S1 and S2 GI: Normal to inspection. Soft to palpation and nontender Skin: No rashes or lesions noted Neuro: Patient oriented x3 Extremities: Normal to inspection Results Plan 1. Dyslipidemia A lipid panel has been ordered to assess the current status of the patient's dyslipidemia. The patient is advised to continue regular follow-ups with cardiology, which have been beneficial. Weight management through recent weight loss is noted as a positive factor in managing dyslipidemia. Discussion Notes I discussed with the patient the importance of monitoring his lipid levels through regular testing and follow-ups with cardiology. We also talked about the positive impact of his recent weight loss on his overall cardiovascular health. Patient Instructions - Get the lipid panel done as ordered. - Continue regular follow-ups with your research and development manager. - Maintain your current weight loss efforts. [facility] Medical History Persistent atrial fibrillation Sleep apnea New onset a-fib Sleep walking Degenerative disc disease, lumbar Elevated cholesterol Lumbar herniated disc Hypertension Surgical History History of surgery on lower extremity Hx of removal of cyst Hx of umbilical hernia repair Hx of cystoscopy History of surgery H/O prostatectomy H/O left knee surgery Hx of hernia repair H/O colonoscopy Family History Father No problems noted. Mother No problems noted. Brother Substance use disorder Sister Substance use disorder Paternal Uncle Mental health disorder Paternal Aunt Mental health disorder Social History Alcohol intake: current Alcohol intake frequency: does not drink Comment: medicated in pacu Patient Tobacco Use Status: Never used Tobacco Cognitive needs: No Hearing needs: No Vision needs: No Questionnaire PHQ-9 Over the last 2 weeks, how often have you been bothered by any of the following problems? 1. Little interest or pleasure in doing things: several days 2. Feeling down, depressed, or hopeless: several days 3. Trouble falling or staying asleep, or sleeping too much: several days 4. Feeling tired or having little energy: several days 5. Poor appetite or overeating: not at all 6. Feeling bad about yourself - or that you are a failure or have let yourself or your family down: not at all 7. Trouble concentrating on things, such as reading the newspaper or watching television: not at all 8. Moving or speaking so slowly that other people could have noticed. Or the opposite - being so fidgety or restless that you have been moving around a lot more than usual: not at all 9. Thoughts that you would be better off or of hurting yourself in some way: not at all Total score: 4 Depression Screening Interpretation: Negative Depression Screening Done: Yes 15031 - PHQ-9 Billing: Yes Source: Developed by Drs. Jet Rodas, Katelin Sosa, Mark Aguilar and colleagues, with an educational todd from [employer] Thrive Questionnaire I am a: Patient What is your living situation today?: I choose not to answer this question Within the past 12 months, did the food you bought not last and you didn't have the money to get more?: I choose not to answer this question Within the past 12 months, did you worry whether your food would run out before you got money to buy more?: I choose not to answer this question Do you have trouble paying for medicines?: No Do you have trouble getting transportation to medical appointments?: No Do you have trouble paying your heating and electricity bill?: No Do you have trouble taking care of your child, family member or friend?: No Do you have trouble with day-to-day activities such as bathing, preparing meals, shopping, managing finances, etc.?: No Are you currently unemployed and looking for a job?: No Are you interested in more education?: No Please select the resources that you would like help with: Housing/Residential Currently or been in a relationship where the following occur: I choose not to answer THRIVE Score: 0 AUDIT C Alcohol Use Questionnaire (AUDIT-C) 1. How often do you have a drink containing alcohol?: Never Total Score: 0 ANTONI-7 AMB Questionnaire ANTONI-7 Date ANTONI - 7 assessed: 01/11/25 Feeling nervous, anxious, or on edge: 1 = Several days Not being able to stop or control worryin = Not at all Worrying too much about different things: 1 = Several days Trouble relaxin = Not at all Being so restless that it is hard to sit still: 0 = Not at all Becoming easily annoyed or irritable: 1 = Several days Feeling afraid as if something awful might happen: 1 = Several days Total ANTONI-7 score (0-4 normal; 5-9 mild; 10-14 moderate; 15-21 severe): 4 Source: Developed by Drs. Jet Rodas, Katelin Sosa, Mark Aguilar and colleagues, with an educational todd from [employer] ANTONI-7 Assessment Billing ANTONI-7 Assessment Tool: ANTONI-7 Assessment 62647 Physical exam (Primary Care) Vital Signs: Last Vital Signs Pulse 85 01/11/25 13:19 Resp 16 01/11/25 13:19 BP 110/68 01/11/25 13:19 Pulse Ox 97 01/11/25 13:19 Oxygen Delivery Method Room Air 01/11/25 13:19 BMI result Body Mass Index 38.1 Tobacco/Smoking Status: Tobacco use Status Tobacco use date assessed 01/11/25 01/11/25 13:20 Patient Tobacco Use Status Never used Tobacco 01/11/25 13:20 PHQ-9: PHQ-9 Score PHQ-9: Total score 4 01/11/25 14:10 Depression Screening Interpretation: Negative Currently or been in a relationship where the following occur: I choose not to answer Coding Level of Care Code Est Pt Level 3 (90353) Diagnoses Dyslipidemia E78.5 Additional Codes ANTONI-7 Assessment Billing - ANTONI-7 Assessment Tool: ANTONI-7 Assessment 25184 ([id number]) PHQ-9 - 17459 - PHQ-9 Billing: Yes ([id number]) Assessment & Plan Assessment & Plan (1) Dyslipidemia: Code(s): E78.5 - Hyperlipidemia, unspecified Category: Medical Plan . Orders: Orders Lipid Panel Today E78.5 - Hyperlipidemia, unspecified
== END 2025-01-11 14:51 | disposition home or self-care (01) ==
LOC: HO.HMCC 13:09
PROVIDERS: PCP Nurse Practitioner Family; Visit Provider Nurse Practitioner Family
DX: E78.5 Hyperlipidemia, unspecified (principal)

== ENCOUNTER → 2025-01-11 13:09 | Outpatient (BNVA) | payer MEDICARE, MEDICAID, SELFPAY | PROVIDERS: PCP Nurse Practitioner Family; Visit Provider Nurse Practitioner Family | DX: I10 Essential (primary) hypertension (principal); E78.5 Hyperlipidemia, unspecified | CPT/HCPCS: 96127; 99212 ==

== ENCOUNTER 2025-01-16 10:38 | Outpatient (REF) | payer MEDICARE, MEDICAID, SELFPAY ==
[2025-01-16 11:51] LABS: Cholesterol 152 mg/dL (<200); HDL Cholesterol 36 mg/dL (>40); Triglycerides 157 mg/dL (<150)
== END 2025-01-16 10:39 | disposition home or self-care (01) ==
LOC: HO.LAB 10:38
PROVIDERS: PCP Nurse Practitioner Family; Visit Provider Nurse Practitioner Family
DX: E78.5 Hyperlipidemia, unspecified (principal)
CPT/HCPCS: 36415; 80061

== ENCOUNTER 2025-01-26 13:47 | Outpatient (AMB) | payer MEDICARE, MEDICAID, SELFPAY ==
[2025-01-26 13:58] VITALS: BP 118/60; PULSE 76
--- NOTE | 2025-01-26 13:58 | A.OFFVIS_ITS ---
Vital Signs 01/26/25 13:58 Weight 266 lb 5.094 oz BP 118/60 Blood Pressure Location Lt brachial Position Sitting Pulse 76 Pulse Source Monitor Intake Visit Reasons: fu/ mibi/ preop gi - colonoscopy Quill Machine Tender Required: No Accompanied by: Self / Same As Patient Allergies tamsulosin (Flomax) Allergy (Intermediate, Verified 01/26/25 14:01) Irritated throat/sinuses oxycodone (From PERCOCET) Allergy (Mild, Verified 01/26/25 14:01) ITCHY aspirin (ASA) Adverse Reaction (Intermediate, Verified 01/26/25 14:01) GI UPSET, upset stomach pollen extracts (POLLEN) Adverse Reaction (Intermediate, Verified 01/26/25 14:01) SINUS PROBLEMS fluticasone (From Flonase) Adverse Reaction (Unknown, Verified 01/26/25 14:01) Unknown Medication List - Last Reconciled 01/26/25 by Ben Moncada NP apixaban (Eliquis) 5 mg PO BID 30 days ascorbic acid (vitamin C) 1 g PO DAILY atorvastatin 10 mg PO DAILY bisacodyl (Dulcolax (bisacodyl)) 20 mg (4 x 5 mg) PO ONCE 1 day cetirizine (Allergy Relief (cetirizine)) 10 mg PO DAILY PRN cholecalciferol (vitamin D3) 25 mcg PO DAILY diphenhydramine-acetaminophen 25-500 mg (Tylenol PM Extra Strength) 1 tab PO BEDTIME PRN dronedarone (Multaq) 400 mg PO BID lisinopril-hydrochlorothiazide 10-12.5 mg 1 tab PO DAILY magnesium oxide 400 mg PO DAILY polyethylene glycol 3350 (Miralax) 238 grams PO ONCE turmeric root extract 500 mg PO DAILY HPI Comments Details: This is a 74-year-old male patient coming in for a follow-up visit. Patient with a history of hypertension, dyslipidemia, and AFib who at his previous visit had reported some chest discomfort and underwent a myocardial perfusion study. Today patient is reporting feeling well overall without any cardiac symptoms of exertional chest pain, shortness of breath, palpitations, dizziness, orthopnea, PND, leg edema, presyncope or syncope. Patient is reporting compliance with all his medications denying any signs of bleeding. Patient does report that he has a routine upcoming colonoscopy for which he needs cardiac clearance. [facility] Medical History Persistent atrial fibrillation Sleep apnea New onset a-fib Sleep walking Degenerative disc disease, lumbar Elevated cholesterol Lumbar herniated disc Hypertension Surgical History History of surgery on lower extremity Hx of removal of cyst Hx of umbilical hernia repair Hx of cystoscopy History of surgery H/O prostatectomy H/O left knee surgery Hx of hernia repair H/O colonoscopy Family History Father No problems noted. Mother No problems noted. Brother Substance use disorder Sister Substance use disorder Paternal Uncle Mental health disorder Paternal Aunt Mental health disorder Social History Alcohol intake: current Alcohol intake frequency: does not drink Comment: medicated in pacu Patient Tobacco Use Status: Never used Tobacco Cognitive needs: No Hearing needs: No Vision needs: No Review of Systems Const Denies daytime sleepiness, Denies difficulty sleeping, Denies snoring, Denies stops breathing during sleep and Denies weakness Card Denies chest pain, Denies rapid heart rate, Denies irregular heart rhythm, Denies claudication, Denies leg edema, Denies lightheadedness, Denies palpitations, Denies dyspnea, Denies dyspnea on exertion, Denies orthopnea, Denies paroxysmal nocturnal dyspnea and Denies slow heart rate Resp Denies cough, Denies dyspnea, Denies dyspnea on exertion and Denies snoring GI Reports no additional complaints, Denies hematochezia, Denies change in stool character and Denies dyspepsia Musc Denies abnormal gait, Denies muscle weakness and Denies numbness Neuro Denies abnormal gait, Denies numbness and Denies weakness Endo Denies palpitations Physical Exam Vital Signs: Last Vital Signs Pulse 76 01/26/25 13:58 BP 118/60 01/26/25 13:58 Const General: cooperative, healthy appearing, comfortable and no acute distress Orientation/consciousness: patient oriented x3 HEENT Head: Yes normal to inspection Neck Neck: Yes normal visual inspection, Yes trachea midline and Yes supple Chest Chest palpation & inspection: normal inspection of the chest Resp Effort & Inspection: normal respiratory effort Auscultation: clear to auscultation bilaterally, no crackles, no rales, no rhonchi and no wheezes Cardio Jugular venous distension: no JVD Palpation: normal PMI Rate: regular rate Rhythm: regular rhythm Heart sounds: S1 normal heart sound present, S2 normal heart sound present, no click, no gallops, no murmurs and no rubs Peripheral pulses: Peripheral pulses 2+ throughout GI Inspection: Yes normal to inspection Palpation (GI): Soft to palpation Auscultation: normal bowel sounds Skin General skin exam: no rashes or lesions noted Neuro General: patient oriented x3 Extrem General: Yes normal to inspection, No no pedal edema and No calf tenderness Psych Appearance: grossly normal Mental Status: mental status grossly normal Speech and movement: Normal speech and movement present Office Procedures EKG Details: EKG today showed sinus rhythm with a first-degree AV block, rate 76 beats per minute, right axis deviation, incomplete right bundle branch block, possible right ventricular hypertrophy, HI prolongation at 248 milliseconds, nonspecific [place]-T, [place]. [id number], Complete Assessment & Plan Assessment & Plan (1) Afib: Code(s): I48.91 - Unspecified atrial fibrillation Category: Medical Plan: For reports of chest tightness at the last visit, patient underwent a myocardial perfusion study on 01-27 that showed normal myocardial perfusion. Given resolution of his symptoms, no further testing indicated at this time. EKG today showed normal sinus rhythm. Continue with Eliquis for full anticoagulation. No reported signs of bleeding or falls. Continue Multaq for rhythm control approach. We will monitor labs periodically. (2) Hypertension: Code(s): I10 - Essential (primary) hypertension Category: Medical Plan: Blood pressure today is well-controlled. Continue current regimen. Advised monitoring blood pressures at home with a goal of blood pressure less than 130/80. Advised on low-salt diet. (3) Dyslipidemia: Code(s): E78.5 - Hyperlipidemia, unspecified Category: Medical Plan: Continue statin therapy with an LDL goal closer to 70. (4) Preop cardiovascular exam: Code(s): Z01.810 - Encounter for preprocedural cardiovascular examination Plan: Patient can proceed with the his upcoming colonoscopy with the consideration that patient is at a low to intermediate cardiac risk. Patient can hold his Eliquis 48 hours prior to the procedure for possible biopsies. Advised on heart healthy diet, regular exercise, losing weight, med compliance, management of vascular risk factors. Follow up in 6 months. In the interim, patient will call the office with any concerns or change in symptoms. This note was generated using voice recognition software. While every effort has been made to ensure accuracy and proper pharmacology teacher, there may be occasional errors that could affect the content or meaning of the described symptoms. Orders: Orders AMB EKG-In Office Today Ben Moncada NP I48.91 - Unspecified atrial fibrillation, Z01.810 - Encounter for preprocedural cardiovascular examination Medications: Changed From atorvastatin 20 mg PO DAILY 90 tabs 1RF E78.5 - Hyperlipidemia, unspecified To atorvastatin 10 mg PO DAILY E78.5 - Hyperlipidemia, unspecified BLAYNE Handley- Coding Level of Care Code Est Pt Level 4 (75564) Complex EM visit Add On G2211 Diagnoses Afib I48.91 Hypertension I10 Dyslipidemia E78.5 Preop cardiovascular exam Z01.810 CPT Codes EKG - CPT: 08857-[id number], Complete ([id number]) Time Spent (min) 32 Comment Time spent in reviewing the chart, test results, assessment, counseling and documentation.
--- OUTSIDE RECORDS SUMMARY | 2025-01-26 15:48 | XMS_ITS | Clinical Summary ---
Author Organization [facility] Address [address] [place] [address] Care Team Providers Care Inventory Coordinator Name Role Phone Unavailable Primary Care Provider [...] Description 12/15/2024 4:00 PM EDT Office Visit [address] [phone] Wildlife Ecologist, Emilia 12/13/2024 1:00 PM EDT Office Visit [address] [phone] Hiwot Stewart DDS 11/14/2024 1:00 PM EDT Office Visit [address] [phone] Cece Alcantar RHD from Last 3 Months [...] Description 05/22/2025 1:00 PM EST Office Visit [facility] [address] [place] [phone] Cece Alcantar, RHD [address] [place] [address] Health Maintenance Due Date Last Done Comments [...] Drug Screen 04/05/2024 Depression Annual Screen 04/05/2024 [id number] ( season) 12/04/202407/30/2 021, 07/03/2020 Imm-Influenza (#1) [...] Relevant to Health Maintenance Insurance HEALTH SAFETY [facility] DENTAL MEDICARE - [place] MEDICAID
== END 2025-01-26 14:21 | disposition home or self-care (01) ==
LOC: HO.HCS 13:48
PROVIDERS: PCP Nurse Practitioner Family
DX: I48.91 Unspecified atrial fibrillation (principal); I10 Essential (primary) hypertension; E78.5 Hyperlipidemia, unspecified; Z01.810 Encounter for preprocedural cardiovascular examination
CPT/HCPCS: 93010; 99214; G2211

== ENCOUNTER → 2025-01-26 13:47 | Outpatient (BNVA) | payer MEDICARE, MEDICAID, SELFPAY | PROVIDERS: PCP Nurse Practitioner Family | DX: I48.91 Unspecified atrial fibrillation (principal); I10 Essential (primary) hypertension; E78.5 Hyperlipidemia, unspecified; Z01.810 Encounter for preprocedural cardiovascular examination | CPT/HCPCS: 93005; 99212 ==